=== PATIENT | female | born 1985 ===

== ENCOUNTER 2016-10-07 10:32 | Emergency (ER) | payer OTHER ==
[2016-10-07 10:37] VITALS: BP 135/83; PULSE 84; RESP 18; TEMP 98.3; O2SAT 100
--- NOTE | 2016-10-07 11:09 | ED PDOC ---
HPI: Female Pain Time Seen by Provider: 10/07/16 10:38 Chief Complaint (Nursing): Abdominal Pain Chief Complaint (Provider): Lower abdominal pain, spotting x 3 days History Per: Patient History/Exam Limitations: no limitations Onset/Duration Of Symptoms: Days Current Symptoms Are (Timing): Still Present Severity: Mild Quality Of Discomfort: Dull Associated Symptoms: denies: Fever, Chills, Nausea, Vomiting, Diarrhea, Loss Of Appetite, Back Pain, Chest Pain, Constipation, Urinary Symptoms Alleviating Factors: None Additional Complaint(s): at 6 weeks gestation, LMP 08/22/16 Past Medical History Reviewed: Historical Data, Nursing Documentation, Vital Signs Vital Signs: Last Vital Signs Temp 98.3 F 10/07/16 10:36 Pulse 84 10/07/16 10:36 Resp 18 10/07/16 10:36 BP 135/83 10/07/16 10:36 Pulse Ox 100 10/07/16 10:36 - Medical History PMH: No Chronic Diseases - Surgical History Surgical History: No Surg Hx - Family History Family History: States: Unknown Family Hx - Living Arrangements Living Arrangements: With Family - Social History Current smoker - smoking cessation education provided: No Alcohol: None Drugs: Denies - Home Medications Home Medications: Ambulatory Orders Medication Instructions Recorded No Known Home Med 01/15/16 - Allergies Allergies/Adverse Reactions: Allergies Allergy/AdvReac Type Severity Reaction Status Date / Time No Known Allergies Allergy Verified 10/07/16 10:45 Review of Systems ROS Statement: Except As Marked, All Systems Reviewed And Found Negative Gastrointestinal: Positive for: Abdominal Pain Genitourinary Female: Positive for: Vaginal Bleeding (Spotting, dark red/brown in color ) Physical Exam - Reviewed Nursing Documentation Reviewed: Yes Vital Signs Reviewed: Yes - Physical Exam Appears: Positive for: Well, Non-toxic, No Acute Distress Head Exam: Positive for: ATRAUMATIC, NORMAL INSPECTION, NORMOCEPHALIC Skin: Positive for: Normal Color, Warm, DRY Eye Exam: Positive for: Normal appearance ENT: Positive for: Normal ENT Inspection Neck: Positive for: Normal, Painless ROM Cardiovascular/Chest: Positive for: Regular Rate, Rhythm Respiratory: Positive for: Normal Breath Sounds. Negative for: Accessory Muscle Use Gastrointestinal/Abdominal: Positive for: Normal Exam, Bowel Sounds, Soft. Negative for: Tenderness Pelvic Exam: Positive for: Other (Mild left sided tenderness ) Back: Positive for: Normal Inspection Extremity: Positive for: Normal ROM Neurologic/Psych: Positive for: Alert, Oriented - Laboratory Results Result Diagrams: 10/07/16 11:23 10/07/16 11:23 - ECG O2 Sat by Pulse Oximetry: 100 Medical Decision Making Medical Decision Making: (+) IUP on US Pt has f/u already scheduled with OB. Disposition - Clinical Impression Clinical Impression: Subchorionic hematoma in first trimester - Patient ED Disposition Is Patient to be Admitted: No Counseled Patient/Family Regarding: Diagnosis, Need For Followup - Disposition Referrals: [facility] [Outside] [facility] [Outside] [facility] [Outside] Disposition: Routine/Home Disposition Time: 16:58 Condition: GOOD Additional Instructions: Please follow-up with OB. Continue vitamins. Instructions: Subchorionic Hemorrhage (ED) Print Language: DANISH
[2016-10-07 11:32] LABS: HEMATOCRIT 37.6 % (34.0-47.0); MEAN CORPUSCULAR HEMOGLOBIN 28.2 pg (27.0-31.0); MEAN CORPUSCULAR HGB CONC 33.6 g/dL (33.0-37.0); RED CELL DISTRIBUTION WIDTH 13.2 % (11.5-14.5); WHITE BLOOD COUNT 7.7 K/uL (4.8-10.8)
[2016-10-07 11:46] LABS: ALB/GLOB RATIO 1.2 (1.0-2.1); ALKALINE PHOSPHATASE 68 U/L (38-126); ALT/SGPT 38 U/L (9-52); AST/SGOT 20 U/L (14-36); BILIRUBIN,TOTAL 0.3 mg/dl (0.2-1.3); BLOOD UREA NITROGEN 9 mg/dl (7-17); CALCIUM 9.6 mg/dL (8.4-10.2); CARBON DIOXIDE 26 mmol/L (22-30); CHLORIDE 101 mmol/L (98-107); GFR AFRICAN-AMERICAN > 60; GLUCOSE,RANDOM 78 mg/dL (65-105); POTASSIUM 3.7 MMOL/L (3.6-5.0); SODIUM 139 mmol/l (132-148); TOTAL PROTEIN 7.9 G/DL (6.3-8.2)
--- NOTE | 2016-10-07 14:06 | US ---
HISTORY: 6 weeks, vaginal bleeding, left sided pain COMPARISON: None available. TECHNIQUE: FINDINGS: UTERUS: Uterus is anteverted measuring approximately 8.0 x 6.3 x 4.6 cm. . ENDOMETRIUM: Single living intrauterine gestation. . Note is made of a small subchorionic hemorrhage measuring 2.0 x 0.8 x 0.4 cm. Measurements: Gestational sac: MSD = 2.23 cm = 6 weeks 6 days Yolk sac: 0.25 cm pole: CRL = 7.0 cm = 6 weeks 4 days Heart motion: 130 BPM Average ultrasound age: 6 weeks 5 days +/-0 weeks 3 days CERVIX: Cervix closed measuring 4 cm RIGHT OVARY: Right ovary measures approximately 3.5 x 3.6 x 2.7 cm and exhibits arterial flow. Complex cyst measuring 2.5 x 1.9 x 2.1 cm noted. LEFT OVARY: Left ovary measures approximately 2.9 x 2.8 x 1.4 cm and also exhibits arterial flow. FREE FLUID: No significant free fluid noted. OTHER FINDINGS: None. IMPRESSION: Single living intrauterine gestation average ultrasound age 6 weeks 5 days +/-0 weeks 3 days. Cardiac activity documented at 1:30 BPM Small subchorionic hemorrhage. Small right ovarian cyst possibly representing corpus luteum cyst of .
== END 2016-10-07 17:14 | disposition home or self-care (01) ==
LOC: H.ER 10:32
DX: O20.9 Hemorrhage in early pregnancy, unspecified (principal); Z3A.01 Less than 8 weeks gestation of pregnancy

== ENCOUNTER 2016-12-14 18:41 | Emergency (ER) | payer SELFPAY ==
[2016-12-14 18:48] VITALS: BP 125/75; PULSE 89; RESP 16; TEMP 97.5; O2SAT 100
[2016-12-14] MEDS ORDERED: Alum-Mag Hydrox-Simethicone Susp (30 mL) PO ONE (19:07)
[2016-12-14] MEDS ORDERED: Simethicone 80 mg Chewtab PO STA (19:07)
--- NOTE | 2016-12-14 20:34 | ED PDOC ---
HPI: Abdomen Time Seen by Provider: 12/14/16 19:00 Chief Complaint (Nursing): Abdominal Pain Chief Complaint (Provider): Abdominal Pain History Per: Patient History/Exam Limitations: no limitations Onset/Duration Of Symptoms: Hrs (5x hours prior to arrival) Current Symptoms Are (Timing): Still Present Context: Food Severity: Moderate Location Of Pain/Discomfort: Epigastric Quality Of Discomfort: Stabbing Associated Symptoms: Other (bloating). denies: Nausea, Vomiting, Constipation, Urinary Symptoms Additional Complaint(s): 31 year old female 17 weeks () with no pertinent medical history presents to the ED with complaints of epigastric pain that started 5x hours prior to arrival right after she ate lunch. She describes the pain as a stabbing pain and she felt bloated a the same time. She reports that the pain went outwards from her upper abdominal area, and radiated outwards to her back bilaterally. She felt like she needed to belch, but could not. She denies having nausea, vomiting, irregular bowel movements, lower abdominal pain, vaginal bleeding, vaginal discharge, and urinary symptoms. She denies taking any medications prior to arrival. PMD: Not provided. Abnormal Vaginal Bleeding: No : 1 Para: 0 Past Medical History Reviewed: Historical Data, Nursing Documentation, Vital Signs Vital Signs: Last Vital Signs Temp 97.5 F L 12/14/16 18:44 Pulse 89 12/14/16 18:44 Resp 16 12/14/16 18:44 BP 125/75 12/14/16 18:44 Pulse Ox 100 12/14/16 20:44 - Medical History PMH: No Chronic Diseases - Surgical History Surgical History: No Surg Hx - Family History Family History: States: Unknown Family Hx - Social History Current smoker - smoking cessation education provided: No Alcohol: None Drugs: Denies - Home Medications Home Medications: Ambulatory Orders Medication Instructions Recorded Famotidine [Pepcid] 20 mg PO BID #20 tab 12/14/16 Simethicone [Mylicon Chew Tab] 80 mg PO BID PRN #12 ctb 12/14/16 - Allergies Allergies/Adverse Reactions: Allergies Allergy/AdvReac Type Severity Reaction Status Date / Time No Known Allergies Allergy Verified 10/07/16 10:45 Review of Systems ROS Statement: Except As Marked, All Systems Reviewed And Found Negative Gastrointestinal: Positive for: Abdominal Pain (epigastric, no lower abdominal pain). Negative for: Nausea, Vomiting Genitourinary Female: Negative for: Dysuria, Frequency, Hematuria, Vaginal Discharge, Vaginal Bleeding Musculoskeletal: Positive for: Back Pain (abdominal painradiates to back) Physical Exam - Reviewed Nursing Documentation Reviewed: Yes Vital Signs Reviewed: Yes - Physical Exam Appears: Positive for: Well, Non-toxic, No Acute Distress Head Exam: Positive for: ATRAUMATIC, NORMOCEPHALIC Skin: Positive for: Normal Color, Warm, Dry Cardiovascular/Chest: Positive for: Regular Rate, Rhythm Respiratory: Positive for: Normal Breath Sounds, Respiratory Distress Gastrointestinal/Abdominal: Positive for: Normal Exam, Soft. Negative for: Tenderness (gravid uterus, non-tender. Abdomen: soft, non-tender) Back: Positive for: Normal Inspection. Negative for: L CVA Tenderness, R CVA Tenderness Neurologic/Psych: Positive for: Alert, Oriented (3x) - ECG O2 Sat by Pulse Oximetry: 100 (RA) Pulse Ox Interpretation: Normal Medical Decision Making Medical Decision Makin:00 Initial impression: 31 year old female with gas. Initial plan: * upreg * udip * maalox plus 30ml * mylicon chew tab 80mg PO * pepcid 20mg PO * reevaluation 1999 Bedside sono shows active fetus with normal HR. Pt. felt much better after meds , prescribed simethicone and maalox to go home with. Return precautions given. ADvised patient to f/u w/ PMD or OB this week. Scribe Attestation: Documented by Sparkle Kelly, acting as a scribe for Kishor Khalil MD. Provider Scribe Attestation: All medical record entries made by the Scribe were at my direction and personally dictated by me. I have reviewed the chart and agree that the record accurately reflects my personal performance of the history, physical exam, medical decision making, and the department course for this patient. I have also personally directed, reviewed, and agree with the discharge instructions and disposition. Disposition - Clinical Impression Clinical Impression: Gas pain, Abdominal pain during - Disposition [facility] [Outside] Disposition: Routine/Home Disposition Time: 20:04 Condition: STABLE Prescriptions: Famotidine [Pepcid] 20 mg PO BID #20 tab Simethicone [Mylicon Chew Tab] 80 mg PO BID PRN #12 ctb PRN Reason: Gas and Bloating Instructions: Gas and Bloating (ED), Abdominal Pain in (ED) Print Language: TUVALUAN
== END 2016-12-14 20:04 | disposition home or self-care (01) ==
LOC: H.ER 18:41
DX: O26.899 Other specified pregnancy related conditions, unspecified trimester (principal); R14.0 Abdominal distension (gaseous)

== ENCOUNTER 2017-02-09 15:56 | Emergency (ER) | payer OTHER, SELFPAY ==
[2017-02-09 16:49] VITALS: BMI 33.3
[2017-02-09 18:34] LABS: RBC URINE 2 /hpf (0-3); URINE BACTERIA RARE (<OCC); URINE BILIRUBIN NEGATIVE (NEGATIVE); URINE BLOOD NEGATIVE (NEGATIVE); URINE COLOR YELLOW (YELLOW); URINE GLUCOSE (UA) NEG (Normal); URINE KETONE NEGATIVE (NEGATIVE); URINE LEUKOCYTE ESTERASE NEG Leu/uL (Negative); URINE PROTEIN NEGATIVE (NEGATIVE); URINE UROBILINOGEN 0.2-1.0 mg/dL (0.2-1.0); WBC URINE 3 /hpf (0-5)
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
--- NOTE | 2017-02-09 20:30 | OBHP ---
Datetime: 02/09/2017 20:14 IP Adm Impression: , intrauterine IP Admit Plan: Discharge home Admit Comment, IP Provider: CC: pelvic discomfort HPI: 31 yo at 24.3 weeks via US + FM, -CTX, VB, ROM Last U/S 02/04/2017 Last visit 02/04/2017 She reports less pain, feeling more comfortable. Vitals: 119/75 84 PE: General: pleasant, in no acute distress HEENT: normocephalic, PERRLA; AAOx3 Heart: no murmurs, regular rate and rhythm, S1, S2 normal. Lungs: clear to auscultation bilaterally, no wheezing Abdomen: gravid CVA: negative Lower extremities: negative for edema MONITOR: Variability: moderate Accel: 15x15 FHR: 140 bpm Assessment: 31 yo IUP at 24.3 weeks; . U/S: no samara-gestational hemorrhage observed,placenta posterior wall, cervix closed 4.4cm, AF adeq uated. Type and screen: AB+, Ab - Discharge to home PTL precaution given ED precaution given [place] PGY1 OB H addendum: Agree with above assessment and plan. Pelvic Type - PN: Adequate Extremities - PN: Normal Abdomen - PN: Normal Back - PN: Normal Breast - PN: Not Done Lungs - PN: Normal Heart - PN: Normal Thyroid - PN: Not Done Neurologic - PN: Normal HEENT - PN: Normal General - PN: Normal FHR - Baseline A Provider: 140 Contraction Comments Provider: no ctx Vital Signs Provider: Reviewed; Within Normal Limits IP Chief Complaint: Maternal discomfort; Trauma/Fall NICHD Variability Prov Fetus A: Moderate 6-25bpm NICHD Accel Fetus A IP Provider: 15X15 NICHD Decel Fetus A IP Provider: None Dilatation, Provider: 0 Effacement, Provider: 0 Station, Provider: -4 Genitourinary Exam: Normal DTRs - PN: Normal Datetime: 02/09/2017 17:00 FHR Category Provider Fetus A: Category I
[2017-02-10 00:41] VITALS: BP 105/64; PULSE 81
== END 2017-02-09 20:10 | disposition home or self-care (01) ==
LOC: H.EROB2 15:56
DX: O47.03 False labor before 37 completed weeks of gestation, third trimester (principal); Z3A.24 24 weeks gestation of pregnancy

== ENCOUNTER 2017-05-20 10:00 | Emergency (ER) | payer SELFPAY ==
[2017-05-20 11:12] VITALS: BMI 39.9
[2017-05-20 11:48] LABS: BASO % 0.7 % (0.0-2.0); EOS % 0.6 % (0.0-4.0); HEMATOCRIT 35.9 % (34.0-47.0); LYMPH # 1.2 K/uL (1.0-4.3); LYMPH % 19.4 % (20.0-40.0); MEAN CELL VOLUME 79.4 fl (81.0-99.0); MEAN CORPUSCULAR HGB CONC 32.7 g/dL (33.0-37.0); MEAN PLATELET VOLUME 9.2 fl (7.2-11.7); MONO # 0.7 K/uL (0.0-0.8); MONO % 10.3 % (0.0-10.0); NEUT # 4.4 K/uL (1.8-7.0); NRBC % 0.2 % (0.0-0.0); RED CELL DISTRIBUTION WIDTH 18.3 % (11.5-14.5); WHITE BLOOD COUNT 6.4 K/uL (4.8-10.8)
[2017-05-20 12:00] LABS: RBC URINE 2 /hpf (0-3); URINE BACTERIA OCC (<OCC); URINE BILIRUBIN NEGATIVE (NEGATIVE); URINE BLOOD NEGATIVE (NEGATIVE); URINE COLOR YELLOW (YELLOW); URINE GLUCOSE (UA) NEG (Normal); URINE KETONE NEGATIVE (NEGATIVE); URINE LEUKOCYTE ESTERASE NEG Leu/uL (Negative); URINE PROTEIN NEGATIVE (NEGATIVE); URINE UROBILINOGEN 0.2-1.0 mg/dL (0.2-1.0); WBC URINE 2 /hpf (0-5)
[2017-05-20 12:09] LABS: ALKALINE PHOSPHATASE 216 U/L (38-126); ALT/SGPT 46 U/L (9-52); AST/SGOT 25 U/L (14-36); BILIRUBIN,TOTAL 0.2 mg/dl (0.2-1.3); BLOOD UREA NITROGEN 8 mg/dl (7-17); CALCIUM 9.6 mg/dL (8.4-10.2); CARBON DIOXIDE 23 mmol/L (22-30); CHLORIDE 105 mmol/L (98-107); GFR AFRICAN-AMERICAN > 60; GLUCOSE,RANDOM 84 mg/dL (65-105); POTASSIUM 4.5 MMOL/L (3.6-5.0); SODIUM 134 mmol/l (132-148); TOTAL PROTEIN 6.9 G/DL (6.3-8.2); URIC ACID 4.3 mg/Dl (2.2-7.5)
--- NOTE | 2017-05-20 14:03 | OBDCSUM ---
Datetime: 05/20/2017 13:57 Discharged to, Provider: Home Follow up at, Provider: Clinic Disch Instr Activity: Normal activity Disch Instr Diet: Regular Discharge Instructions, Provider: Routine instructions given Discharge Time: 05/20/2017 13:57 Follow up in weeks, Provider: Next Week/next scheduled appt Disch Referrals: None Contraception discussed, Prov: No Discharge Diagnosis Prov Other: Term w/ elevated BP in office
--- NOTE | 2017-05-20 14:03 | OBHP ---
Datetime: 05/20/2017 11:20 IP Adm Impression: Term, intrauterine IP Chief Complaint Other: Elevated BP and pressure behind the eyes IP Admit Plan: Observation/Evaluation Admit Comment, IP Provider: 31 yo at 38.5 weeks GA, based on LMP , c/w first trimester US, EDC 05/29/17 is sent to [facility] from [facility] due to elevated BP of 137/94 and pressure behind her eyes. Pt reports she had bitemporal headache (8/), which resolved this morning, associated with seeing brig ht spot and pressure behind her eyes. Denies blurry vision, epigastric or RUQ abdominal pain. Pt repo rts +fm. Denies CTX, VB or LOF. Pt is GBS neg. Denies any hx elevated BP in the past. PNC: [facility], Gerda Cartagena APN PNL: AB+, AB neg, hiv neg, rpr neg, gc/c neg, gbs neg, rubella immune, PPD neg, pap: ascus, hpv+ past obhx: G1 past gynhx: denies hx STI, pap: ASCUS, HPV+, [place]: aceto-white at 5'clock position. pmhx: anemia pshx: denies social hx: denies smoking cigarettes,ETOH or recreational drug use family hx: father: DMII medications: iron and PNV allergies: NKDA Assessment: 31 yo G1 IUP@38.5 weeks GA, has elevated BP. Plan: NST CBC CMP Uric acid UA LDH Case d/w on-call OB hospitalist Dr. Twila Jacobsen, PGY-1 OB Hospitalist Addendum: Pt seen and examined by me. Agree w/ above. 31 yo G1 at 38+5 wks sent f rom office for elevated BP 137/94. Pt denies PORTER, vision changes, abdominal pain, N/V. Pt reports th at she was feeling preesure around her eyes earlier in the day. Gen'l pt appears comfortable lying i n bed. Abd: soft, NT, gravid, Ext: NT, no edema, DTR's 0-1+. BPs nl. CBC, CMP, uric acid, LDH all nl. Pt reassured and discharged home to f/u in clinic next week. Pt given PEC precautions. Pt orquidea tang Sami and Wendy Rutherford translated. (ES) Extremities - PN: Normal Abdomen - PN: Normal Back - PN: Normal Lungs - PN: Normal Heart - PN: Normal Neurologic - PN: Normal HEENT - PN: Normal General - PN: Normal FHR - Baseline A Provider: 130s Contraction Comments Provider: Quiet IP Hx Assessment: The History has been Reviewed and is Current Vital Signs Provider: Reviewed IP Chief Complaint: Maternal discomfort; Other NICHD Variability Prov Fetus A: Moderate 6-25bpm NICHD Accel Fetus A IP Provider: 15X15 FHR Category Provider Fetus A: Category I NICHD Decel Fetus A IP Provider: None Genitourinary Exam: Normal
--- NOTE | 2017-05-20 14:06 | OBHP ---
Datetime: 05/20/2017 11:20 Admit Comment, IP Provider: 31 yo at 38.5 weeks GA, based on LMP , c/w first trimester US, EDC 05/29/17 is sent to [facility] from [facility] due to elevated BP of 137/94 and pressure behind her eyes. Pt reports she had bitemporal headache (8/10), which resolved this morning, associated with seeing brig ht spot and pressure behind her eyes. Denies blurry vision, epigastric or RUQ abdominal pain. Pt repo rts +fm. Denies CTX, VB or LOF. Pt is GBS neg. Denies any hx elevated BP in the past. PNC: [facility], Gerda Cartagena APN PNL: AB+, AB neg, hiv neg, rpr neg, gc/c neg, gbs neg, rubella immune, PPD neg, pap: ascus, hpv+ past obhx: G1 past gynhx: denies hx STI, pap: ASCUS, HPV+, [place]: aceto-white at 5'clock position. pmhx: anemia pshx: denies social hx: denies smoking cigarettes,ETOH or recreational drug use family hx: father: DMII medications: iron and PNV allergies: NKDA Assessment: 31 yo G1 IUP@38.5 weeks GA, has elevated BP. Plan: NST CBC CMP Uric acid UA LDH Case d/w on-call OB hospitalist Dr. Twila Jacobsen, PGY-1 OB Hospitalist Addendum: Pt seen and examined by me. Agree w/ above. 31 yo G1 at 38+5 wks sent f rom office for elevated BP 137/94. Pt denies PORTER, vision changes, abdominal pain, N/V. Pt reports th at she was feeling preesure around her eyes earlier in the day. Gen'l pt appears comfortable lying i n bed. Abd: soft, NT, gravid, Ext: NT, no edema, DTR's 0-1+. BPs nl. CBC, CMP, uric acid, LDH all nl. NST reactive. Pt reassured and discharged home to f/u in clinic next week. Pt given PEC precau tions. Pt speaks Hebrew and Wendy Rutherford translated. (ES)
[2017-05-21 01:30] VITALS: BP 126/83; PULSE 87; TEMP 98.2; O2SAT 100
== END 2017-05-20 13:45 | disposition home or self-care (01) ==
LOC: H.L&D 10:15 → H.EROB2 10:15
DX: O13.3 Gestational [pregnancy-induced] hypertension without significant proteinuria, third trimester (principal); Z3A.38 38 weeks gestation of pregnancy

== ENCOUNTER 2017-05-23 11:53 | Inpatient (IN) | payer MEDICAID, SELFPAY ==
[2017-05-23 14:38] LABS: BASO % 0.4 % (0.0-2.0); EOS % 0.4 % (0.0-4.0); LYMPH # 1.5 K/uL (1.0-4.3); LYMPH % 20.9 % (20.0-40.0); MEAN CELL VOLUME 78.6 fl (81.0-99.0); MEAN CORPUSCULAR HEMOGLOBIN 26.5 pg (27.0-31.0); MEAN CORPUSCULAR HGB CONC 33.8 g/dL (33.0-37.0); MEAN PLATELET VOLUME 9.4 fl (7.2-11.7); MONO # 0.6 K/uL (0.0-0.8); MONO % 8.3 % (0.0-10.0); NEUT # 4.9 K/uL (1.8-7.0); NRBC % 0.2 % (0.0-0.0); RBC 4.51 Mil/uL (3.80-5.20); RED CELL DISTRIBUTION WIDTH 18.7 % (11.5-14.5)
[2017-05-23 14:51] LABS: ALBUMIN 3.5 g/dL (3.5-5.0); ALT/SGPT 41 U/L (9-52); AST/SGOT 25 U/L (14-36); BLOOD UREA NITROGEN 8 mg/dl (7-17); CALCIUM 9.6 mg/dL (8.4-10.2); GFR AFRICAN-AMERICAN > 60; GFR NON-AFRICAN AMERICAN > 60; URIC ACID 4.8 mg/Dl (2.2-7.5)
[2017-05-23 14:54] LABS: URINE BACTERIA MANY (<OCC); URINE BILIRUBIN NEGATIVE (NEGATIVE); URINE BLOOD NEGATIVE (NEGATIVE); URINE CLARITY CLOUDY (Clear); URINE COLOR YELLOW (YELLOW); URINE GLUCOSE (UA) 50 mg/dL (Normal); URINE LEUKOCYTE ESTERASE TRACE Leu/uL (Negative); URINE NITRATE NEGATIVE (NEGATIVE); URINE PROTEIN NEGATIVE (NEGATIVE); URINE UROBILINOGEN 0.2-1.0 mg/dL (0.2-1.0)
[2017-05-23 14:55] LABS: SQUAMOUS EPITHIAL 6 /hpf (0-5)
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
[2017-05-25] MEDS: Lactated Ringer's 1,000 ML IV SCH ×4 (01:35→14:00)
[2017-05-25] MEDS ORDERED: Fentanyl/Bupivacaine HCl 250 ML EPI ONE (02:15)
[2017-05-25] MEDS ORDERED: Oxytocin 30 UNITS in Sodium Chloride 0.9% 500 ML IV ONE (04:30)
[2017-05-25] MEDS ORDERED: ceFAZolin IV 2 gm in Dextrose 2 GM/50 ML BAG IVPB ONE (14:21)
[2017-05-25] MEDS ORDERED: Lidocaine 2% PF (10 ml) Amp ONE (14:45)
--- NOTE | 2017-05-25 14:51 | OBPN ---
Datetime: 05/25/2017 14:31 IP Progress Impression: Arrest of dilatation/descent IP Informed Consent Obtain: Section Delivery; Risks, Benefits and Alternatives Discussed IP Procedures: Sterile Vag Exam IP Progress Plan: Deliver- Section Contraction Comments Provider: irregular FHR - Baseline A Provider: 130 IP Progress Note Comment: 31 yo G1 at 38+3 wks for induction of labor w/ arrest of descent Pt has been complete/ 0 since about 9 am. Discussed dx and risks, benfits and alternatives of section Pt speaks Upper Sorbian. Inna Bran R.N. translated. Will proceed w/ cesaren section. Vital Signs Provider: Reviewed; Within Normal Limits NICHD Accel Fetus A IP Provider: 10X10 FHR Category Provider Fetus A: Category I NICHD Variability Prov Fetus A: Moderate 6-25bpm Dilatation, Provider: 10 Effacement, Provider: 100 Station, Provider: 0 Datetime: 05/23/2017 12:35 Presentation-Admit: Vertex NICHD Decel Fetus A IP Provider: None
[2017-05-25] MEDS ORDERED: Propofol 10 mg/ml Inj (20 ML) ONE (15:10)
[2017-05-25] MEDS ORDERED: Midazolam 2 MG/2 ML VIAL ONE (15:11)
[2017-05-25] MEDS ORDERED: Morphine 5 mg/10 ml preservative-free Inj(Duramorph) ONE (15:24)
[2017-05-25] MEDS ORDERED: Oxycodone/Acetaminophen 5/325 mg Tab PO PRN (15:53)
[2017-05-25] MEDS ORDERED: DiphenhydrAMINE 50 mg/ml Inj IVP PRN (16:08)
--- NOTE | 2017-05-25 16:09 | OBDS ---
DELIVERY PERSONNEL Delivery Doctor: Sajan Mattson MD Scrub Nurse: Selma Robles OBT Costume Shop Coordinator: Chani Lugo RN Anesthesiologist: James Meyer MD MATERNAL INFORMATION Delivery Anesthesia: Epidural Medications in Delivery: Pitocin Estimated Blood Loss (ml): 800 Placenta Cultured: No Maternal Complications: None RN Comments: Live boy @1513 via primary section.. Infant care given by peds. [id number] not done and documented. Pt tolerated procedure well. Pt to l_d for recovery. Provider Comments: Pre-op dx: 31 yo G1 at 38+3 wks w/ GHTN w/ arrest of descent Post-op dx: OP position Procedure: Primary low transverse section Surgeon: Twila Manager Eligibility: Dr. Orellana Anesthesiologist: Dr. Meyer Ansesthesia: Epidural Findings: Viable male delivered in OP position, through clear fluid at 15:13. Apgars 9 and 9. Wt 3685 gms, 8#1. Nl appearing uterus, tubes and ovaries. EBL: 800mL Complications: None LABOR SUMMARY EDC: 05/29/2017 00:00 No. Babies in Womb: 1 Attempted: No Labor Anesthesia: Epidural LABOR INFORMATION Reason for Induction: Gest. HTN/PreEclampsia/Eclampsia Onset of Labor: 05/25/2017 05:00 (Annotations: Data stored by [facility] on behalf of user) Complete Dilatation: 05/25/2017 08:55 Cervical Ripening Agents: Cervidil; Cytotec @ Oxytocin: Induction Group B Beta Strep: Negative Antibiotics # of Doses: 0 Steroids Given: None Reason Steroids Not Administered: Not Applicable MEMBRANES Membranes Rupture Method: Spontaneous Rupture of Membranes: 05/25/2017 00:50 Length of Rupture (hrs): 14.38 Amniotic Fluid Color: Clear Amniotic Fluid Amount: Moderate STAGES OF LABOR Stage 1 hrs: 3 Stage 1 min: 55 Stage 2 hrs: 6 Stage 2 min: 18 Stage 3 hrs: 0 Stage 3 min: -58 Total Time in Labor hrs: 9 Total Time in Labor min: 15 VAGINAL DELIVERY Episiotomy: None Laceration Extension: N/A Laceration Type: None Laceration Repair: Not Applicable CSECTION DELIVERY Primary Indication: Failure of Descent Secondary Indication: Failure of Descent CSection Urgency: Non Elective CSection Incidence: Primary Labor: Labor Elective: Nonelective CSection Incision: Lower Uterine Transverse BABY A INFORMATION Delivery Date/Time: 05/25/2017 15:13 Method of Delivery: Born in Route : No : N/A Forceps: N/A Vacuum Extraction: N/A Shoulder Dystocia : No SHOULDER DYSTOCIA BABY A Infant Delivery Date/Time: 05/25/2017 15:13 PRESENTATION/POSITION BABY A Presentation: Cephalic Cephalic Presentation: Vertex Breech Presentation: N/A PLACENTA INFORMATION BABY A Placenta Delivery Time : 05/25/2017 14:15 Placenta Method of Delivery: Expressed Placenta Status: Delivered SCORES BABY A Heart Rate 1 min: >100 bpm Resp Effort 1 min: Good Cry Reflex Irritability 1 min: Cough or Sneeze or Pulls Away Muscle Tone 1 min: Active Motion Color 1 min: Body [place], Extremities Blue Resuscitation Effort 1 min: N/A SCORE 1 MIN: 9 Heart Rate 5 min: >100 bpm Resp Effort 5 min: Good Cry Reflex Irritability 5 min: Cough or Sneeze or Pulls Away Muscle Tone 5 min: Active Motion Color 5 min: Body [place], Extremities Blue Resuscitation Effort 5 min: N/A SCORE 5 MIN: 9 Resuscitation Effort 10 min: N/A INFORMATION BABY A Gestational Age at Delivery: 38+3 Gestational Status: Term Outcome : Liveborn Infant Condition : Stable Sex: Male IDENTIFICATION/MEDS BABY A ID Band Number: [id number] ID Band Location: Left Leg; Left Arm WEIGHT/LENGTH BABY A Infant Birthweight (gms): 3650 Infant Weight (lb): 8 Infant Weight (oz): 1 CORD INFORMATION BABY A No. Cord Vessels: 3 Nuchal Cord : N/A Cord Blood Taken: Yes Infant Suction: Mouth ASSESSMENT BABY A Infant Complications: None Physical Findings at Delivery: Within Normal Limits Respirations: Appears Normal Homicide Squad Captain/ALS Called : No Infant Care By: Terri Price rn Transferred To: [facility]
--- NOTE | 2017-05-25 19:36 | OP ---
PROCEDURE DATE: 05/25/2017 PREOPERATIVE DIAGNOSIS: This is a 31-year-old G1 at 38 weeks and 3 days with gestational hypertension with arrest of descent.. POSTOPERATIVE DIAGNOSES: This is a 31-year-old G1 at 38 weeks and 3 days with gestational hypertension with arrest of descent. Occiput posterior position. PROCEDURE: A primary low-transverse section. SURGEON: Rachel Mattson MD GUYLINE OPERATOR: Rolan Orellana MD. Dr. Orellana was a surgical assistant certified participated in the surgery for the entire duration of the case. He helped create exposure, he also helped maintain hemostasis, operated throughout the case on the side of the patient that was across from him and assisted in delivery of the infant by guiding the head through the incision as well as by applying fundal pressure. This case could not have been completed without his assistance. ANESTHESIOLOGIST: Dr. Wesley Meyer. ANESTHESIA: Epidural. FINDINGS: A viable male infant delivered in OP position through clear fluid at 1513. Apgars were 9 and 9 at one and five minutes respectively. Weight was 3685 grams or 8 pounds 1 ounce. Normal-appearing uterus, tubes and ovaries. ESTIMATED BLOOD LOSS: 800 mL. COMPLICATIONS: None. DESCRIPTION OF PROCEDURE: The patient was taken to the operating room where epidural anesthesia was bolused. She was then prepped and draped in the normal sterile fashion in the dorsal supine position with a leftward tilt. A time-out was done. The epidural was tested and found to be adequate. A Pfannenstiel skin incision was then made with the scalpel and carried through to the underlying layer of fascia with the Bovie. The fascia was incised in the midline. The incision was extended laterally with the Bovie over a Verna. The inferior aspect of the fascial incision was then grasped with the Amanda clamps, elevated and the underlying rectus muscles were dissected off bluntly and with the Bovie. Attention was then turned to the superior aspect of this incision, which in a similar fashion was grasped, tented up with the Amanda clamps and the rectus muscles were dissected off bluntly and with the Bovie. The rectus muscles were then in the midline. The peritoneum was identified, tented up and entered sharply with the Metzenbaum scissors. The peritoneal incision was then extended superiorly and inferiorly with good visualization of the bladder. The bladder blade was then inserted. The vesicouterine peritoneum was identified, grasped with the pickups and entered sharply with the Metzenbaum scissors. This incision was then extended laterally and the bladder flap was created digitally. The bladder blade was then reinserted and lower uterine segment was incised in a transverse fashion with the scalpel. The uterine incision was then extended laterally digitally. The bladder blade was removed. The 's head delivered atraumatically. The nose and mouth were suctioned with a bulb suction. The cord was clamped and cut. The was handed off to the awaiting seed core operator. Cord blood was then collected. The placenta was then delivered as the uterus was massaged. The uterus was then exteriorized and cleared of all clots and debris with a dry sponge curettage. The uterine incision was then repaired with 0 Vicryl in a running locked fashion. A second layer of the same suture was used to obtain hemostasis and to reinforce the incision. The abdomen was then well irrigated. The uterus was then returned to the abdomen. The gutters were cleared of all clots. The peritoneum was closed with 0 chromic. A single stitch of 0 chromic was placed to re-approximate the rectus muscles. The fascia was re-approximated with 0 Vicryl in a running fashion. The subcutaneous fat was well irrigated. 2-0 plain gut was used in a running fashion to close the space of the fat. The skin was then closed with 4-0 Monocryl in a subcuticular fashion. The patient tolerated the procedure well. Sponge, lap and needle counts were correct. The patient received 2 g of Ancef prior to the procedure. The patient was taken to the recovery room in stable condition. Rachel Mattson MD MTDLauri
[2017-05-26] MEDS: Lactated Ringer's 1,000 ML IV SCH (01:42)
[2017-05-26 06:13] LABS: HEMOGLOBIN 11.3 g/dL (12.0-16.0); MEAN CELL VOLUME 78.3 fl (81.0-99.0); MEAN CORPUSCULAR HEMOGLOBIN 26.7 pg (27.0-31.0); MEAN CORPUSCULAR HGB CONC 34.1 g/dL (33.0-37.0); RBC 4.24 Mil/uL (3.80-5.20); RED CELL DISTRIBUTION WIDTH 18.9 % (11.5-14.5)
[2017-05-26 06:35] LABS: ALB/GLOB RATIO 0.8 (1.0-2.1); ALBUMIN 2.7 g/dL (3.5-5.0); ALT/SGPT 99 U/L (9-52); AST/SGOT 78 U/L (14-36); BLOOD UREA NITROGEN 11 mg/dl (7-17); GFR AFRICAN-AMERICAN > 60; GFR NON-AFRICAN AMERICAN > 60
[2017-05-26] MEDS: Simethicone 80 mg Chewtab PO PRN ×2 (08:44→21:15)
[2017-05-26] MEDS: Oxycodone/Acetaminophen 5/325 mg Tab PO PRN ×3 (10:07→20:45)
--- NOTE | 2017-05-27 07:08 | OBPPN ---
Datetime: 05/26/2017 08:00 PP Pain Prov: Within normal limits PP Nausea Prov: Denies PP Flatus Prov: Yes PP BM Prov: No PP Breasts Prov: Not Done PP Heart Prov: Normal PP Lungs Prov: Normal PP Abdomen/Uterus Prov: Normal PP Lochia Prov: Normal PP Vulva/Perineum Prov: Not Done PP CVA Tenderness Prov: Normal PP Extremities Prov: Normal PP C/S Incision Prov: Normal PP Progress Prov: Normal PP Impression Prov: Normal progression PP Plan Prov: Continue present management PP Progress Note Prov: POD 1 S: 31 yo s/p on 05/25/17. Pt. is seen and examined at bedside this AM. No overni ght events. Pt reports mild abdominal pain, but well controlled with pain meds. D/c le, dressing t o be removed in the afternoon. No nausea, advised to advance diet as tolerated. Breast feeding withou t difficulty. Lochia is similar to menses volume. No bowel movement, but passing gas per rectum. Niko es fever/chills, diarrhea, nausea/vomiting, chest pain, dyspnea, and dizziness. O: VS: stable GEN: AAOX3 Cardio: S1S2, no murmurs Lungs: clear breath sounds b/l; no wheezing Abdomen: BS+, tenderness to palpation. Incision scar to be examined when bandage is removed at 15: 00. Uterus is firm and at the level of the umbilicus. EXT: calves nontender NEURO/PSYCH: AAOx3, no grossly focal deficits, preserved affect and mood. Assessment/Plan: 31 yo s/p on 05/25/17. Pt remains afebrile, tolerating pain wit h medication, doing well on POD#1. OOB with caution SCDs for DVT prophylaxis, encouraged ambulating Percocet 5/325mg, and Motrin 600mg for pain. Colace 100mg PO BID/Senokot 17.2 mg for constipation Encourage and ambulating f/u CBC post op, pending Tdap before d/c Anticipated d/c to home, 05/28/2017. --- Lester Cardona MD PGY-1 Late entry for May 26 - OB Hospitalist note. Pt seen on rounds 4pm. Agree with note - currently undecided about circ [facility] Vital Signs Provider PP: Reviewed; Within Normal Limits Vital Signs Provider Details PP: incision will be checked when bandage is removed at 15:00
[2017-05-27 07:49] LABS: MEAN CELL VOLUME 77.7 fl (81.0-99.0); MEAN CORPUSCULAR HEMOGLOBIN 26.6 pg (27.0-31.0); MEAN CORPUSCULAR HGB CONC 34.2 g/dL (33.0-37.0); RBC 3.5 Mil/uL (3.80-5.20); RED CELL DISTRIBUTION WIDTH 18.9 % (11.5-14.5)
[2017-05-27 07:51] LABS: HEMOGLOBIN 9.3 g/dL (12.0-16.0)
[2017-05-27] MEDS: Oxycodone/Acetaminophen 5/325 mg Tab PO PRN ×3 (07:51→21:35)
[2017-05-27] MEDS: Simethicone 80 mg Chewtab PO PRN ×2 (07:51→21:35)
--- NOTE | 2017-05-27 11:56 | OBPPN ---
Datetime: 05/27/2017 07:20 PP Pain Prov: Within normal limits PP Nausea Prov: Denies PP Flatus Prov: Yes PP BM Prov: No PP Breasts Prov: Not Done PP Heart Prov: Normal PP Lungs Prov: Normal PP Abdomen/Uterus Prov: Normal PP Lochia Prov: Normal PP Vulva/Perineum Prov: Not Done PP CVA Tenderness Prov: Normal PP Extremities Prov: Normal PP C/S Incision Prov: Normal PP Progress Prov: Normal PP Impression Prov: Normal progression PP Plan Prov: Continue present management PP Progress Note Prov: POD 2 S: 31 yo s/p on 05/25/17. Pt. is seen and examined at bedside this AM. No overni ght events. Pt reports mild abdominal pain, but well controlled with pain meds. D/c le, dressing r emoved, incision site healing well, no exudate seen, dry and intact. No nausea, advised to advance di et as tolerated. Breast feeding without difficulty. Lochia is similar to menses volume. No bowel move ment, but passing gas per rectum. Denies fever/chills, diarrhea, nausea/vomiting, chest pain, dyspnea , and dizziness. O: VS: stable GEN: AAOX3 Cardio: S1S2, no murmurs Lungs: clear breath sounds b/l; no wheezing Abdomen: BS+, tenderness to palpation. Incision scar noted, well healing with no exudate seen, dry and intact. Uterus is firm and at the level of the umbilicus. EXT: calves nontender NEURO/PSYCH: AAOx3, no grossly focal deficits, preserved affect and mood. Assessment/Plan: 31 yo s/p on 05/25/17. Pt remains afebrile, tolerating pain wit h medication, doing well on POD#2. OOB with caution SCDs for DVT prophylaxis, encouraged ambulating Percocet 5/325mg, and Motrin 600mg for pain. Colace 100mg PO BID/Senokot 17.2 mg for constipation Encourage and ambulating f/u CBC post op, stable 11.3/33.2 Tdap before d/c Anticipated d/c to home, 05/28/2017. --- Lester Cardona MD PGY-1 The patient was seen with the resident and I agree with the notes IP PP Procedures: None Vital Signs Provider PP: Reviewed Vital Signs Provider Details PP: elevated bp. consult family medicine team for further evaluation
--- NOTE | 2017-05-27 15:31 | CP.PCM.CON ---
History of Present Illness - History of Present Illness History of Present Illness: Family Medicine Consult Note - Dr. Vanegas 31 year old s/p (05/25/17) seen and evaluated at bedside regarding elevated BP. Patient hemodynamically stable and NAD. Family present at bedside. Patient states last week Thursday, she experienced pain and pressure behind her eyes and felt tightness in her chest. Patient states she then presented to clinic for scheduled care visit and was found to have BP 141/99, and was told to go to [facility] for elevated BP and pre-ecclampsia workup. Per chart, workup for pre-ecclampsia was found to be unremarkable. At present, patient denies any headache, pain, or pressure behind her eyes; also denies any chest tightness or palpitations. Denies N/V/F/D/C/SOB. +abdominal discomfort. PMHx: sickle cell trait PSH: none FH: HTN (mother and father) SH: denies ETOH/tobacco use/illicit drug use Meds: vitamins All: NKDA Review of Systems - Review of Systems All systems: reviewed and no additional remarkable complaints except (as per HPI ) - Constitutional Constitutional: absent: Chills, Fever, Headache, Malaise, Weakness - EENT Eyes: absent: Blind Spots, Blurred Vision, Pain Ears: absent: Tinnitus, Dizziness Nose/Mouth/Throat: absent: Nose Pain, Facial Pain, Neck Pain, Neck Mass - Breasts Breasts: Swelling. absent: Pain - Cardiovascular Cardiovascular: absent: Chest Pain, Chest Pain at Rest, Dyspnea, Irregular Heart Rhythm, Palpitations, Radiating Pain - Respiratory Respiratory: absent: Dyspnea, Hemoptysis, Wheezing - Gastrointestinal Gastrointestinal: Abdominal Pain. absent: Cramping, Diarrhea, Nausea, Vomiting - Genitourinary Genitourinary: absent: Difficulty Urinating, Flank Pain - Reproductive: Female Reproductive:Female: absent: Pelvic Pain - Musculoskeletal Musculoskeletal: absent: Numbness, Tingling - Integumentary Integumentary: absent: Unusual Bruising, Wounds - Neurological Neurological: absent: Dizziness, Numbness, Syncope - Psychiatric Psychiatric: absent: Confusion, Depression - Endocrine Endocrine: absent: Palpitations, Polydipsia, Polyphagia Past Patient History - Infectious Disease Hx of Infectious Diseases: None - Past Social History Smoking Status: Never Smoked - PSYCHIATRIC Hx Substance Use: No - SURGICAL HISTORY Hx Surgeries: No - ANESTHESIA Hx Anesthesia: No Meds Allergies/Adverse Reactions: Allergies Allergy/AdvReac Type Severity Reaction Status Date / Time No Known Allergies Allergy Verified 10/07/16 10:45 - Medications Medications: Current Medications Acetaminophen (Tylenol 325mg Tab) 650 mg PO Q6 PRN PRN Reason: Headache Diphenhydramine HCl (Benadryl) 50 mg IVP Q6 PRN PRN Reason: Itching / Pruritus Docusate Sodium (Colace) 100 mg PO BID [facility] Last Admin: 05/27/17 10:11 Dose: Not Given Lactated Ringer's (Lactated Ringer's) 1,000 mls @ 125 mls/hr IV .Q8H [facility] Last Admin: 05/26/17 01:42 Dose: 125 mls/hr Ibuprofen (Motrin Tab) 600 mg PO Q4H PRN PRN Reason: Pain, Mild (1-3) Last Admin: 05/27/17 13:01 Dose: 600 mg Ketorolac Tromethamine (Toradol) 30 mg IVP Q6 PRN PRN Reason: For PCEA Breakthrough Pain Ondansetron HCl (Zofran Inj) 4 mg IVP Q6 PRN PRN Reason: Nausea/Vomiting Oxycodone/Acetaminophen (Percocet 5/325 Mg Tab) 1 tab PO Q4 PRN PRN Reason: Pain, moderate (4-7) Stop: 05/28/17 15:54 Last Admin: 05/27/17 07:51 Dose: 1 tab Oxycodone/Acetaminophen (Percocet 5/325 Mg Tab) 2 tab PO Q4 PRN PRN Reason: Pain, severe (8-10) Stop: 05/28/17 15:54 Sennosides (Senokot Tab) 17.2 mg PO [facility] Last Admin: 05/26/17 21:15 Dose: 17.2 mg Simethicone (Mylicon Chew Tab) 80 mg PO TID PRN PRN Reason: Flatulence Last Admin: 05/27/17 07:51 Dose: 80 mg Physical Exam - Constitutional Appears: Well, Non-toxic, No Acute Distress - Head Exam Head Exam: ATRAUMATIC, NORMAL INSPECTION, NORMOCEPHALIC - Eye Exam Eye Exam: EOMI, Normal appearance Pupil Exam: NORMAL ACCOMODATION, PERRL - ENT Exam ENT Exam: Mucous Membranes Moist, Normal Exam, Normal External Ear Exam - Neck Exam Neck exam: Positive for: Full Rom, Normal Inspection. Negative for: Tenderness - Respiratory Exam Respiratory Exam: Clear to Auscultation Bilateral, NORMAL BREATHING PATTERN. absent: Rales, Rhonchi, Wheezes - Cardiovascular Exam Cardiovascular Exam: Tachycardia, +S1, +S2 - GI/Abdominal Exam GI & Abdominal Exam: Normal Bowel Sounds, Soft, Tenderness - Rectal Exam Rectal Exam: Deferred - Extremities Exam Extremities exam: Positive for: full ROM, normal inspection - Neurological Exam Neurological exam: Alert, Oriented x3 - Psychiatric Exam Psychiatric exam: Normal Affect, Normal Mood - Skin Skin Exam: Intact, Normal Color, Warm Results - Labs Result Diagrams: 05/27/17 06:56 05/26/17 05:35 Labs: Laboratory Results - last 24 hr 05/27/17 06:56 WBC 16.0 H RBC 3.50 L Hgb 9.3 L D Hct 27.2 L MCV 77.7 L MCH 26.6 L MCHC 34.2 RDW 18.9 H Plt Count 216 Assessment & Plan (1) Hypertension Status: Acute - Assessment and Plan (Free Text) Assessment: 31 year old s/p (05/25/17) with hypertension and tachycardia, HR 145/97 on admission and remains high 120s-mid 140s throughout hospital course; HR 109 at present. (1) Hypertension Patient found to have 1 episode of elevated BP throughout course (137/ 94 on 05/20/17) BP 141/94 today at noon however at present remains WNL -Continue to monitor BP No protein in urine per UA Ibuprofen or LR as possible source of HTN -Consulted patient on Ibuprofen use in increasing BP vs. use for incisional pain -Will continue Ibuprofen for now given risk/benefit -Will d/c fluid orders as patient is tolerating PO diet Will consider starting Labetalol 100mg PO BID pending urine creatinine -Educated patient on possibility of starting Labetalol use in Continue to monitor BP (2) Tachycardia HR 109 today at noon, WNL currently EKG reviewed - sinus tachycardia WBC increased at 16.0, likely reactive Continue to monitor
[2017-05-28] MEDS: Oxycodone/Acetaminophen 5/325 mg Tab PO PRN (02:13)
--- NOTE | 2017-05-28 07:26 | CP.PCM.PN ---
Subjective - Date & Time of Evaluation Date of Evaluation: 05/28/17 Time of Evaluation: 08:13 - Subjective Subjective: Family Medicine Progress Note 31 year old s/p (05/25/17) seen and evaluated at bedside regarding elevated BP. Patient hemodynamically stable and NAD. Mother present at bedside. Denies any acute events overnight. Patient reports continued abdominal discomfort 2/2 ; denies chest pain, palpitations, headache, or pain behind her eyes. Per nursing, was given Motrin yesterday AM and overnight as well. Denies N/V/F/D/C/SOB. Objective - Medications Medications: Current Medications Acetaminophen (Tylenol 325mg Tab) 650 mg PO Q6 PRN PRN Reason: Headache Diphenhydramine HCl (Benadryl) 50 mg IVP Q6 PRN PRN Reason: Itching / Pruritus Docusate Sodium (Colace) [address] [facility] Last Admin: 05/27/17 17:33 Dose: 100 mg Ibuprofen (Motrin Tab) 600 mg PO Q4H PRN PRN Reason: Pain, Mild (1-3) Last Admin: 05/28/17 06:36 Dose: 600 mg Ketorolac Tromethamine (Toradol) 30 mg IVP Q6 PRN PRN Reason: For PCEA Breakthrough Pain Ondansetron HCl (Zofran Inj) 4 mg IVP Q6 PRN PRN Reason: Nausea/Vomiting Oxycodone/Acetaminophen (Percocet 5/325 Mg Tab) 1 tab PO Q4 PRN PRN Reason: Pain, moderate (4-7) Stop: 05/28/17 15:54 Last Admin: 05/28/17 02:13 Dose: 1 tab Oxycodone/Acetaminophen (Percocet 5/325 Mg Tab) 2 tab PO Q4 PRN PRN Reason: Pain, severe (8-10) Stop: 05/28/17 15:54 Sennosides (Senokot Tab) 17.[address] [facility] Last Admin: 05/27/17 21:34 Dose: 17.2 mg Simethicone (Mylicon Chew Tab) 80 mg PO TID PRN PRN Reason: Flatulence Last Admin: 05/27/17 21:35 Dose: 80 mg - Labs Labs: 05/27/17 06:56 05/26/17 05:35 - Constitutional Appears: Well, Non-toxic, No Acute Distress - Head Exam Head Exam: ATRAUMATIC, NORMAL INSPECTION, NORMOCEPHALIC - Eye Exam Eye Exam: EOMI, Normal appearance Pupil Exam: NORMAL ACCOMODATION, PERRL - ENT Exam ENT Exam: Mucous Membranes Moist, Normal Exam, Normal External Ear Exam - Neck Exam Neck Exam: Full ROM, Normal Inspection. absent: Tenderness - Respiratory Exam Respiratory Exam: Clear to Ausculation Bilateral, NORMAL BREATHING PATTERN. absent: Rales, Rhonchi, Wheezes - Cardiovascular Exam Cardiovascular Exam: Tachycardia, +S1, +S2 - GI/Abdominal Exam GI & Abdominal Exam: Soft, Tenderness, Normal Bowel Sounds Additional comments: Well healing scar noted - Extremities Exam Extremities Exam: Full ROM. absent: Tenderness - Neurological Exam Neurological Exam: Alert, Awake, Oriented x3 - Psychiatric Exam Psychiatric exam: Normal Affect, Normal Mood - Skin Skin Exam: Dry, Intact, Normal Color, Warm Assessment and Plan (1) Hypertension Status: Acute - Assessment and Plan (Free Text) Assessment: 31 year old 3 days s/p (05/25/17) with hypertension and tachycardia , HR 145/97 on admission and remains high 120s-mid 140s systolic and high 80s- 90s diastolic throughout hospital course (1) Hypertension Patient found to have 1 episode of elevated BP throughout course (137/ 94 on 05/20/17) HR at 149/98 this AM -Continue to monitor BP No protein in urine per UA Ibuprofen or LR as possible source of HTN -Consulted patient on Ibuprofen use in increasing BP vs. use for incisional pain -Will continue Ibuprofen for now given risk/benefit -Fluid orders d/c yesterday as patient is tolerating PO diet Start Labetalol 100mg PO BID -Urine creatinine 86.4 -Educated patient on possibility of starting Labetalol use in Continue to monitor BP (2) Tachycardia HR 108 this AM EKG reviewed - sinus tachycardia WBC increased at 16.0, likely reactive Continue to monitor
--- NOTE | 2017-05-28 10:41 | CARD ---
APPROVED REPORT EKG Measurement Heart [id number] <Conclusion> Sinus tachycardia Otherwise normal ECG
[2017-05-28 23:41] VITALS: BP 119/75; PULSE 109; RESP 20; TEMP 98; O2SAT 99
== END 2017-05-28 18:00 | disposition home or self-care (01) | DRG 766 ==
LOC: H.EROB2 11:53 → H.L&D 15:18 → H.OB/GYN 05-25 18:36
PROVIDERS: ADMIT Obstetrics & Gynecology; ATTEND Obstetrics & Gynecology
PROC: 4A1HXCZ Monitoring of Products of Conception, Cardiac Rate, External Approach (ICD-10-PCS; 2017-05-23)
PROC: 10D00Z1 Extraction of Products of Conception, Low, Open Approach (ICD-10-PCS; principal; 2017-05-25)
DX: O13.4 Gestational [pregnancy-induced] hypertension without significant proteinuria, complicating childbirth (principal); O64.0XX0 Obstructed labor due to incomplete rotation of fetal head, not applicable or unspecified; D57.3 Sickle-cell trait; O99.013 Anemia complicating pregnancy, third trimester; O13.5 Gestational [pregnancy-induced] hypertension without significant proteinuria, complicating the puerperium; O62.0 Primary inadequate contractions; O62.1 Secondary uterine inertia; K59.00 Constipation, unspecified; R00.0 Tachycardia, unspecified; Z37.0 Single live birth; Z3A.39 39 weeks gestation of pregnancy

== ENCOUNTER 2017-12-16 16:25 | Observation (INO) | payer SELFPAY ==
[2017-12-16] MEDS ORDERED: Sodium Chloride 0.9% 1,000 ML IV STA (17:25)
[2017-12-16] MEDS ORDERED: Alum-Mag Hydrox-Simethicone Susp (30 mL) PO STA (17:25)
[2017-12-16 17:40] LABS: BASO % 0.5 % (0.0-2.0); EOS % 0.7 % (0.0-4.0); HEMOGLOBIN 13.4 g/dL (12.0-16.0); LYMPH # 2.4 K/uL (1.0-4.3); MEAN CELL VOLUME 82.2 fl (81.0-99.0); MEAN CORPUSCULAR HEMOGLOBIN 27.5 pg (27.0-31.0); MEAN CORPUSCULAR HGB CONC 33.4 g/dL (33.0-37.0); MEAN PLATELET VOLUME 8.3 fl (7.2-11.7); MONO # 0.5 K/uL (0.0-0.8); NEUT # 3.9 K/uL (1.8-7.0); NEUT % 56.8 % (50.0-75.0); NRBC % 0.2 % (0.0-0.0); RBC 4.86 Mil/uL (3.80-5.20); RED CELL DISTRIBUTION WIDTH 14.2 % (11.5-14.5); WHITE BLOOD COUNT 6.8 K/uL (4.8-10.8)
--- NOTE | 2017-12-16 17:44 | ED PDOC ---
HPI: Abdomen Time Seen by Provider: 12/16/17 17:03 Chief Complaint (Nursing): Abdominal Pain Chief Complaint (Provider): Abdominal Pain History Per: Patient History/Exam Limitations: no limitations Onset/Duration Of Symptoms: Days Current Symptoms Are (Timing): Still Present Location Of Pain/Discomfort: Epigastric Additional Complaint(s): 32 y/o female with no significant PMHx presents to the ED complaining of intermittent epigastric pain for the past six months since having her baby. Patient states pain went away and returned over the last couple of weeks worsening, thus prompting today's visit. Patient reports pain radiates up to the chest associated with nausea and constipation. Patient states she took mylanta with no relief. Denies vomiting, diarrhea, fever, chills, and urinary symptoms. PMD: None Provided Past Medical History Reviewed: Historical Data, Nursing Documentation, Vital Signs Vital Signs: Last Vital Signs Temp 97.6 F 12/17/17 08:42 Pulse 65 12/17/17 08:42 Resp 20 12/17/17 08:42 BP 123/77 12/17/17 08:42 Pulse Ox 100 12/17/17 08:42 - Medical History PMH: Gastrointestinal Ulcer, HTN Denies: Depression, Diabetes - Surgical History Surgical History: No Surg Hx - Family History Family History: States: Diabetes, Hypertension - Social History Current smoker - smoking cessation education provided: No Alcohol: None - Home Medications Home Medications: Ambulatory Orders Medication Instructions Recorded No Known Home Med 12/17/17 - Allergies Allergies/Adverse Reactions: Allergies Allergy/AdvReac Type Severity Reaction Status Date / Time No Known Allergies Allergy Verified 12/16/17 16:38 Review of Systems ROS Statement: Except As Marked, All Systems Reviewed And Found Negative (as per HPI) Constitutional: Negative for: Fever, Chills Gastrointestinal: Positive for: Nausea, Abdominal Pain (epigastric), Constipation. Negative for: Vomiting, Diarrhea Genitourinary Female: Negative for: Dysuria, Frequency, Hematuria Physical Exam - Reviewed Nursing Documentation Reviewed: Yes Vital Signs Reviewed: Yes - Physical Exam Appears: Positive for: Non-toxic, In Acute Distress (mild painful) Head Exam: Positive for: ATRAUMATIC, NORMOCEPHALIC Skin: Positive for: Warm, Dry Eye Exam: Positive for: EOMI, PERRL ENT: Negative for: Pharyngeal Erythema, Tonsillar Exudate Neck: Positive for: Painless ROM, Supple Cardiovascular/Chest: Positive for: Regular Rate, Rhythm. Negative for: Murmur Respiratory: Positive for: Normal Breath Sounds. Negative for: Wheezing Gastrointestinal/Abdominal: Positive for: Normal Exam, Soft, Tenderness ( Epigastric and bilateral upper quadrant tenderness to palpation). Negative for : Mass, Distended, Guarding, Rebound Back: Positive for: Normal Inspection. Negative for: L CVA Tenderness, R CVA Tenderness Extremity: Positive for: Normal ROM. Negative for: Deformity Lymphatic: Negative for: Adenopathy Neurologic/Psych: Positive for: Alert. Negative for: Motor/Sensory Deficits - Laboratory Results Result Diagrams: 12/17/17 06:20 12/17/17 06:20 Urine dip results: Positive for: Bilirubin. Negative for: Leukocyte Esterase, Blood, Nitrate, Ketones, Glucose, Protein - ECG O2 Sat by Pulse Oximetry: 100 (RA) Pulse Ox Interpretation: Normal Medical Decision Making Medical Decision Making: Time: 1737 Impression: Abdominal Pain Differentials include but not limited to gastritis, reflux, pancreatitis, hepatitis, gall bladder disease and entoritis. Plan: -- CMP -- Lipase -- ED Urine -- ED Urine Dipstick -- CBC with differentials -- Lidocaine 2% Viscous 10 ml PO -- Maalox Plus 30 ml PO -- Sodium Chloride IV 1000 mls/hr -- Pepcid 20 mg PO -- Zofran INJ 4 mg IVP -- IV Insertion -- Abdomen Complete US Time: 1828 ABDOMEN US RESULTS FINDINGS: LIVER: Measures 18.0 cm. Normal echogenicity of the liver parenchyma. No mass. No intrahepatic bile duct dilatation. GALLBLADDER: There are multiple gallstones, no wall thickening or pericholecystic fluid. The sonographic Morgan's sign is negative. COMMON BILE DUCT: Measures 5.0 mm. No stones. No dilatation. PANCREAS: Normal in size and echotexture. No mass. No ductal dilatation. RIGHT KIDNEY: Measures 11.6cm. Normal echogenicity. No calculus, mass, or hydronephrosis. LEFT KIDNEY: Measures 11.6cm. Normal echogenicity. No calculus, mass, or hydronephrosis. SPLEEN: Normal in size and contour. No mass. AORTA: No aneurysmal dilatation. IVC: Unremarkable. OTHER FINDINGS: None. IMPRESSION: Cholelithiasis. No sonographic evidence for acute cholecystitis. 1830 LFTs moderately deranged. DW pt findings. Pt to be hospitalized for further evaluation. DW Dr Wesley FP resident. Scribe Attestation: Documented by Angela Bourgeois, acting as a scribe for Dr. Della Anthony. Provider Scribe Attestation: All medical record entries made by the Scribe were at my direction and personally dictated by me. I have reviewed the chart and agree that the record accurately reflects my personal performance of the history, physical exam, medical decision making, and the department course for this patient. I have also personally directed, reviewed, and agree with the discharge instructions and disposition. Disposition - Clinical Impression Clinical Impression: Cholelithiasis, Cholangitis - Disposition Disposition Time: 18:30 Condition: FAIR - Pt Status Changed To: Hospital Disposition Of: Inpatient - Admit Certification Admit to Inpatient:: After my assessment, the patient will require hospitalization for at least two midnights. This is because of the severity of symptoms shown, intensity of services needed, and/or the medical risk in this patient being treated as an outpatient. - POA Present On Arrival: None
[2017-12-16 17:50] LABS: ALB/GLOB RATIO 1.2 (1.0-2.1); ALBUMIN 4.6 g/dL (3.5-5.0); ALT/SGPT 956 U/L (9-52); BLOOD UREA NITROGEN 8 mg/dl (7-17); CALCIUM 10.1 mg/dL (8.4-10.2); GFR NON-AFRICAN AMERICAN > 60; LIPASE 334 U/L (23-300)
[2017-12-16 18:04] LABS: AST/SGOT 728 U/L (14-36)
[2017-12-16 18:24] LABS: PARTIAL THROMBOPLASTIN TIME 33.4 Seconds (25.6-37.1)
--- NOTE | 2017-12-16 18:30 | US ---
Date of service: 12/16/2017 HISTORY: epigastric pain COMPARISON: None. TECHNIQUE: Grayscale imaging was performed. FINDINGS: LIVER: Measures 18.0 cm. Normal echogenicity of the liver parenchyma. No mass. No intrahepatic bile duct dilatation. GALLBLADDER: There are multiple gallstones, no wall thickening or pericholecystic fluid. The sonographic Morgan's sign is negative. COMMON BILE DUCT: Measures 5.0 mm. No stones. No dilatation. PANCREAS: Normal in size and echotexture. No mass. No ductal dilatation. RIGHT KIDNEY: Measures 11.6cm. Normal echogenicity. No calculus, mass, or hydronephrosis. LEFT KIDNEY: Measures 11.6cm. Normal echogenicity. No calculus, mass, or hydronephrosis. SPLEEN: Normal in size and contour. No mass. AORTA: No aneurysmal dilatation. IVC: Unremarkable. OTHER FINDINGS: None. IMPRESSION: Cholelithiasis. No sonographic evidence for acute cholecystitis.
--- NOTE | 2017-12-16 19:31 | CP.PCM.HP ---
History of Present Illness - History of Present Illness History of Present Illness: Hx taken from patient Full code PMD: NHC 32 y/o F with no significant PMhx is admitted to hosp after presenting to ED with c/o epigastric and RUQ pain for 3 days. Pain is worse at night, usually comes and goes but since last night pain is constant. Patient admits hx of similar pain almost 1 y/a during the 3rd trimester of her . Denies vomiting, diarrhea, CP, SOB, fever, headache, radiation of the pain but admits nausea. Denies taking any meds at this time, no recent traveling, no sick contacts. Denies EOTH or drugs. ED course: CBC: Unremarkable. No white count CMP: AST/ALT/ALP/Bili: 728/956/374/2.7 Lipase 334 Abd US: GB stones, no Cholecystitis, CBD 5 mm(no stones or dilation) IV fluids 1 L Pepcid IV PMHx: Gestational HTN SxHx: C/S x1 SHx: Denies x3 FHx: Unknown Allergies: NKDA Present on Admission - Present on Admission Any Indicators Present on Admission: No Review of Systems - Review of Systems All systems: reviewed and no additional remarkable complaints except (Those described on HPI) Past Patient History - Infectious Disease Hx of Infectious Diseases: None - Past Social History Smoking Status: Never Smoked Alcohol: None Drugs: Denies Home Situation {Lives}: With Family - CARDIAC Hx Cardiac Disorders: No Hx Hypertension: Yes (Gestational) - PULMONARY Hx Respiratory Disorders: No - NEUROLOGICAL Hx Neurological Disorder: No - HEENT Hx HEENT Problems: No - RENAL Hx Chronic Kidney Disease: No - ENDOCRINE/METABOLIC Hx Endocrine Disorders: No - HEMATOLOGICAL/ONCOLOGICAL Hx Blood Disorders: No - INTEGUMENTARY Hx Dermatological Problems: No - MUSCULOSKELETAL/RHEUMATOLOGICAL Hx Musculoskeletal Disorders: No - GASTROINTESTINAL Hx Gastrointestinal Disorders: Yes Hx Gall Bladder Disease: Yes - GENITOURINARY/GYNECOLOGICAL Hx Genitourinary Disorders: No - PSYCHIATRIC Hx Depression: No - SURGICAL HISTORY Hx Surgeries: No Hx Section: Yes - ANESTHESIA Hx Anesthesia: No Meds Allergies/Adverse Reactions: Allergies Allergy/AdvReac Type Severity Reaction Status Date / Time No Known Allergies Allergy Verified 12/16/17 16:38 Physical Exam - Constitutional Appears: Non-toxic, No Acute Distress - Eye Exam Eye Exam: EOMI, Normal appearance, PERRL - ENT Exam ENT Exam: Mucous Membranes Moist - Respiratory Exam Respiratory Exam: Clear to Auscultation Bilateral, NORMAL BREATHING PATTERN. absent: Rales, Rhonchi, Wheezes, Respiratory Distress - Cardiovascular Exam Cardiovascular Exam: REGULAR RHYTHM, +S1, +S2. absent: Gallop, Systolic Murmur - GI/Abdominal Exam GI & Abdominal Exam: Normal Bowel Sounds, Soft, Tenderness (Epigastric and RUQ) . absent: Distended, Firm, Guarding, Rebound, Rigid - Extremities Exam Extremities exam: Positive for: normal capillary refill, normal inspection, pedal pulses present. Negative for: pedal edema, tenderness - Neurological Exam Neurological exam: Alert, CN II-XII Intact, Oriented x3 - Psychiatric Exam Psychiatric exam: Normal Affect, Normal Mood - Skin Skin Exam: Normal Color, Warm Results - Vital Signs Recent Vital Signs: Last Vital Signs Temp 98.1 F 12/16/17 16:38 Pulse 71 12/16/17 16:38 Resp 16 12/16/17 16:38 BP 140/97 H 12/16/17 16:38 Pulse Ox 100 12/16/17 18:54 - Labs Result Diagrams: 12/16/17 17:33 12/16/17 17:33 Labs: Laboratory Results - last 24 hr 12/16/17 12/16/17 12/16/17 17:33 17:33 18:04 WBC 6.8 RBC 4.86 Hgb 13.4 Hct 40.0 MCV 82.2 MCH 27.5 MCHC 33.4 RDW 14.2 Plt Count 375 MPV 8.3 Neut % (Auto) 56.8 Lymph % (Auto) 35.0 [place] % (Auto) 7.0 Eos % (Auto) 0.7 Baso % (Auto) 0.5 Neut # (Auto) 3.9 Lymph # (Auto) 2.4 [place] # (Auto) 0.5 Eos # (Auto) 0.0 Baso # (Auto) 0.0 PT 11.0 INR 1.0 APTT 33.4 Sodium 140 Potassium 4.0 Chloride 100 Carbon Dioxide 28 Anion Gap 16 BUN 8 Creatinine 0.6 L Est GFR ( Amer) > 60 Est GFR (Non-Af Amer) > 60 Random Glucose 108 H Calcium 10.1 Total Bilirubin 2.7 H AST 728 H D ALT 956 H D Alkaline Phosphatase 374 H D Total Protein 8.6 H Albumin 4.6 Globulin 3.9 Albumin/Globulin Ratio 1.2 Lipase 334 H Assessment & Plan - Assessment and Plan (Free Text) Assessment: 32 y/o F with PMHx of gestational HTN is admitted for biliary colic and acute AST/ALT elevation Biliary Colic Acute R/O Choledocolithiasis Cholelithiasis w/o cholecystits or CBD dilation on Abd US AST/ALT/Bili: 728/956/2.7 Lipase 334 No White count, afebrile, VS stable S/p IV NS at ER General Sx consult GI Consult IV NS at 200mls Toradol 30 mg IV once NPO for now F/U Lipid panel and repeat CMP AM Transaminitis Acute AST/ALT/Bili: 728/956/2.7 R/O Biliary obstruction F/U GGT, direct Bili, Hepatitis panel GI consult DVT prophylaxis SCDs for now
[2017-12-16] MEDS: Sodium Chloride 0.9% 1,000 ML IV SCH (19:50)
[2017-12-16 20:30] LABS: BILIRUBIN,DIRECT 2.1 mg/ml (0.0-0.4)
--- NOTE | 2017-12-16 20:39 | CP.PCM.CON ---
<AlcarazSuzanne miller - Last Filed: 12/16/17 20:31> History of Present Illness - History of Present Illness History of Present Illness: General Surgery - Dr. Ordonez 32yo F w/ no PMH, presenting to ED w/ RUQ and epigastric pain x3days. Pt states the pain began 3 days ago and has been intermittent but increasing in intensity over the past 3 days. She describes it as strong/sharp pain located in the epigastric and RUQ abdomen, 8/10 at worst, now significantly improved after 1 dose Toradol IV in the ED. She had 1 prior episode of this pain about a year ago during her but it was less severe and resolved on it's own. Pt denies any Fevers, Chills, Nausea, Vomiting, SOb, Chest pain, Diarrhea , Constipation, Dysuria, Hematuria. PMH: none PSH: Csectionx1 NKDA Pt was seen in the ED. Vitals stable and WNL. Labs significant for elevated liver enzymes - Tbili 2.7, AST 738, ALT 956, Alk phos 374. An U/S of the RUQ showed gallstones with no GB wall thickening or pericholecystic fluid, CBD 5.5mm. Review of Systems - Review of Systems All systems: reviewed and no additional remarkable complaints except (as per HPI ) Past Patient History - Infectious Disease Hx of Infectious Diseases: None - Past Social History Smoking Status: Never Smoked Alcohol: None Drugs: Denies Home Situation {Lives}: With Family - CARDIAC Hx Cardiac Disorders: No Hx Hypertension: Yes (Gestational) - PULMONARY Hx Respiratory Disorders: No - NEUROLOGICAL Hx Neurological Disorder: No - HEENT Hx HEENT Problems: No - RENAL Hx Chronic Kidney Disease: No - ENDOCRINE/METABOLIC Hx Endocrine Disorders: No - HEMATOLOGICAL/ONCOLOGICAL Hx Blood Disorders: No - INTEGUMENTARY Hx Dermatological Problems: No - MUSCULOSKELETAL/RHEUMATOLOGICAL Hx Musculoskeletal Disorders: No - GASTROINTESTINAL Hx Gastrointestinal Disorders: Yes Hx Gall Bladder Disease: Yes - GENITOURINARY/GYNECOLOGICAL Hx Genitourinary Disorders: No - PSYCHIATRIC Hx Depression: No - SURGICAL HISTORY Hx Surgeries: No Hx Section: Yes - ANESTHESIA Hx Anesthesia: No Meds Allergies/Adverse Reactions: Allergies Allergy/AdvReac Type Severity Reaction Status Date / Time No Known Allergies Allergy Verified 12/16/17 16:38 - Medications Medications: Current Medications Sodium Chloride (Sodium Chloride 0.9%) 1,000 mls @ 200 mls/hr IV .Q5H REYNOLD Stop: 12/17/17 19:06 Last Admin: 12/16/17 19:50 Dose: 200 mls/hr Ondansetron HCl (Zofran Inj) 4 mg IVP Q6 PRN PRN Reason: Nausea/Vomiting Physical Exam - Constitutional Appears: Well, No Acute Distress - Head Exam Head Exam: ATRAUMATIC, NORMAL INSPECTION, NORMOCEPHALIC - Eye Exam Eye Exam: Normal appearance - Respiratory Exam Respiratory Exam: NORMAL BREATHING PATTERN. absent: Respiratory Distress - Cardiovascular Exam Cardiovascular Exam: REGULAR RHYTHM - GI/Abdominal Exam GI & Abdominal Exam: Soft, Tenderness (RUQ, + [place]). absent: Distended, Firm , Guarding, Hernia, Rebound, Rigid - Neurological Exam Neurological exam: Alert, Oriented x3 - Psychiatric Exam Psychiatric exam: Normal Affect, Normal Mood - Skin Skin Exam: Dry, Intact Results - Vital Signs Recent Vital Signs: Last Vital Signs Temp 98.1 F 12/16/17 16:38 Pulse 71 12/16/17 16:38 Resp 16 12/16/17 16:38 BP 140/97 H 12/16/17 16:38 Pulse Ox 100 12/16/17 19:41 - Labs Result Diagrams: 12/16/17 17:33 12/16/17 17:33 Labs: Laboratory Results - last 24 hr 12/16/17 12/16/17 12/16/17 17:33 17:33 18:04 WBC 6.8 RBC 4.86 Hgb 13.4 Hct 40.0 MCV 82.2 MCH 27.5 MCHC 33.4 RDW 14.2 Plt Count 375 MPV 8.3 Neut % (Auto) 56.8 Lymph % (Auto) 35.0 Yell % (Auto) 7.0 Eos % (Auto) 0.7 Baso % (Auto) 0.5 Neut # (Auto) 3.9 Lymph # (Auto) 2.4 Yell # (Auto) 0.5 Eos # (Auto) 0.0 Baso # (Auto) 0.0 PT 11.0 INR 1.0 APTT 33.4 Sodium 140 Potassium 4.0 Chloride 100 Carbon Dioxide 28 Anion Gap 16 BUN 8 Creatinine 0.6 L Est GFR ( Amer) > 60 Est GFR (Non-Af Amer) > 60 Random Glucose 108 H Calcium 10.1 Total Bilirubin 2.7 H Direct Bilirubin AST 728 H D ALT 956 H D Alkaline Phosphatase 374 H D Total Protein 8.6 H Albumin 4.6 Globulin 3.9 Albumin/Globulin Ratio 1.2 Lipase 334 H 12/16/17 20:16 WBC RBC Hgb Hct MCV MCH MCHC RDW Plt Count MPV Neut % (Auto) Lymph % (Auto) Yell % (Auto) Eos % (Auto) Baso % (Auto) Neut # (Auto) Lymph # (Auto) Yell # (Auto) Eos # (Auto) Baso # (Auto) PT INR APTT Sodium Potassium Chloride Carbon Dioxide Anion Gap BUN Creatinine Est GFR ( Amer) Est GFR (Non-Af Amer) Random Glucose Calcium Total Bilirubin Direct Bilirubin 2.1 H AST ALT Alkaline Phosphatase Total Protein Albumin Globulin Albumin/Globulin Ratio Lipase - Imaging and Cardiology US - abdomen Status: Image reviewed by me, Report reviewed by me Assessment & Plan - Assessment and Plan (Free Text) Assessment: 32 yo F w/ biliary colic and elevated LFTs -Clear liquid diet -MRCP to eval for CBD stone -Pain control prn -Repeat LFTs in AM -F/U GI Discussed w/ Dr. Mery Alcaraz PGY4 <Oleg Ordonez - Last Filed: 12/17/17 11:16> History of Present Illness - History of Present Illness History of Present Illness: Patient was seen and examined at the bedside. Agree with resident's note above. Meds - Medications Medications: Current Medications Sodium Chloride (Sodium Chloride 0.9%) 1,000 mls @ 200 mls/hr IV .Q5H REYNOLD Stop: 12/17/17 19:06 Last Admin: 12/17/17 06:33 Dose: 200 mls/hr Ondansetron HCl (Zofran Inj) 4 mg IVP Q6 PRN PRN Reason: Nausea/Vomiting Results - Vital Signs Recent Vital Signs: Last Vital Signs Temp 97.6 F 12/17/17 08:42 Pulse 65 12/17/17 08:42 Resp 20 12/17/17 08:42 BP 123/77 12/17/17 08:42 Pulse Ox 100 12/17/17 08:42 - Labs Result Diagrams: 12/17/17 06:20 12/17/17 06:20 Labs: Laboratory Results - last 24 hr 12/16/17 12/16/17 12/16/17 17:33 17:33 18:04 WBC 6.8 RBC 4.86 Hgb 13.4 Hct 40.0 MCV 82.2 MCH 27.5 MCHC 33.4 RDW 14.2 Plt Count 375 MPV 8.3 Neut % (Auto) 56.8 Lymph % (Auto) 35.0 Yell % (Auto) 7.0 Eos % (Auto) 0.7 Baso % (Auto) 0.5 Neut # (Auto) 3.9 Lymph # (Auto) 2.4 Yell # (Auto) 0.5 Eos # (Auto) 0.0 Baso # (Auto) 0.0 ESR PT 11.0 INR 1.0 APTT 33.4 Sodium 140 Potassium 4.0 Chloride 100 Carbon Dioxide 28 Anion Gap 16 BUN 8 Creatinine 0.6 L Est GFR ( Amer) > 60 Est GFR (Non-Af Amer) > 60 Random Glucose 108 H Calcium 10.1 Total Bilirubin 2.7 H Direct Bilirubin AST 728 H D ALT 956 H D Alkaline Phosphatase 374 H D Total Protein 8.6 H Albumin 4.6 Globulin 3.9 Albumin/Globulin Ratio 1.2 Triglycerides Cholesterol LDL Cholesterol Direct HDL Cholesterol Lipase 334 H 12/16/17 12/16/17 12/17/17 20:16 20:16 06:20 WBC 4.9 RBC 3.95 Hgb 11.0 L D Hct 32.7 L MCV 82.7 MCH 27.8 MCHC 33.6 RDW 14.5 Plt Count 278 MPV 8.1 Neut % (Auto) 49.3 L Lymph % (Auto) 40.3 H Yell % (Auto) 8.6 Eos % (Auto) 1.2 Baso % (Auto) 0.6 Neut # (Auto) 2.4 Lymph # (Auto) 2.0 Yell # (Auto) 0.4 Eos # (Auto) 0.1 Baso # (Auto) 0.0 ESR 41 H PT INR APTT Sodium Potassium Chloride Carbon Dioxide Anion Gap BUN Creatinine Est GFR ( Amer) Est GFR (Non-Af Amer) Random Glucose Calcium Total Bilirubin Direct Bilirubin 2.1 H AST ALT Alkaline Phosphatase Total Protein Albumin Globulin Albumin/Globulin Ratio Triglycerides Cholesterol LDL Cholesterol Direct HDL Cholesterol Lipase 12/17/17 06:20 WBC RBC Hgb Hct MCV MCH MCHC RDW Plt Count MPV Neut % (Auto) Lymph % (Auto) Yell % (Auto) Eos % (Auto) Baso % (Auto) Neut # (Auto) Lymph # (Auto) Yell # (Auto) Eos # (Auto) Baso # (Auto) ESR PT INR APTT Sodium 139 Potassium 3.9 Chloride 108 H Carbon Dioxide 23 Anion Gap 12 BUN 5 L Creatinine 0.6 L Est GFR ( Amer) > 60 Est GFR (Non-Af Amer) > 60 Random Glucose 107 H Calcium 8.1 L Total Bilirubin 2.6 H Direct Bilirubin AST 331 H D ALT 615 H D Alkaline Phosphatase 275 H D Total Protein 6.3 Albumin 3.2 L D Globulin 3.1 Albumin/Globulin Ratio 1.0 Triglycerides 92 Cholesterol 131 LDL Cholesterol Direct 58 HDL Cholesterol 39 Lipase Assessment & Plan - Assessment and Plan (Free Text) Plan: - MRCP - Pain control - Hepatitis panel - Repeat labs in am - GI follow up - Will follow
[2017-12-17] MEDS: Sodium Chloride 0.9% 1,000 ML IV SCH ×4 (01:08→17:58)
[2017-12-17 06:35] LABS: BASO % 0.6 % (0.0-2.0); EOS # 0.1 K/uL (0.0-0.7); EOS % 1.2 % (0.0-4.0); LYMPH % 40.3 % (20.0-40.0); MEAN CELL VOLUME 82.7 fl (81.0-99.0); MEAN CORPUSCULAR HEMOGLOBIN 27.8 pg (27.0-31.0); MEAN CORPUSCULAR HGB CONC 33.6 g/dL (33.0-37.0); MEAN PLATELET VOLUME 8.1 fl (7.2-11.7); MONO # 0.4 K/uL (0.0-0.8); MONO % 8.6 % (0.0-10.0); NEUT # 2.4 K/uL (1.8-7.0); NEUT % 49.3 % (50.0-75.0); RBC 3.95 Mil/uL (3.80-5.20); RED CELL DISTRIBUTION WIDTH 14.5 % (11.5-14.5); WHITE BLOOD COUNT 4.9 K/uL (4.8-10.8)
[2017-12-17 07:00] LABS: LDL CHOLESTEROL 58 mg/dL (0-129)
[2017-12-17 07:06] LABS: ALBUMIN 3.2 g/dL (3.5-5.0); ALT/SGPT 615 U/L (9-52); AST/SGOT 331 U/L (14-36); BLOOD UREA NITROGEN 5 mg/dl (7-17); CALCIUM 8.1 mg/dL (8.4-10.2); GFR NON-AFRICAN AMERICAN > 60; HDL CHOLESTEROL 39 MG/DL (30-70)
--- NOTE | 2017-12-17 07:20 | CP.PCM.PN ---
Subjective - Date & Time of Evaluation Date of Evaluation: 12/17/17 Time of Evaluation: 07:30 - Subjective Subjective: 32 y/o patent evaluated and examined at bedside. NAD. lying in bed comfortably. Improvement in abdominal pain and nausea with IV fluids and pain medication. Also reports B/L lower back pain and occasional chills. Denies any fever, dysuria, urinary Sx, vomiting, diarrhea, constipation, CP, SOB, headache, dizziness. Patient to be evaluated by GI for MRCP today. Objective - Vital Signs/Intake and Output Vital Signs (last 24 hours): Temp Pulse Resp BP Pulse Ox 98.1 F 61 20 115/76 99 12/17/17 06:30 12/17/17 06:30 12/17/17 06:30 12/17/17 06:30 12/17/17 06:30 - Medications Medications: Current Medications Sodium Chloride (Sodium Chloride 0.9%) 1,000 mls @ 200 mls/hr IV .Q5H REYNOLD Stop: 12/17/17 19:06 Last Admin: 12/17/17 06:33 Dose: 200 mls/hr Ondansetron HCl (Zofran Inj) 4 mg IVP Q6 PRN PRN Reason: Nausea/Vomiting - Labs Labs: 12/17/17 06:20 12/17/17 06:20 PT 11.0 Seconds (9.8-13.1) 12/16/17 18:04 INR 1.0 (0.9-1.2) 12/16/17 18:04 APTT 33.4 Seconds (25.6-37.1) 12/16/17 18:04 - Constitutional Appears: Well, Non-toxic, No Acute Distress - Head Exam Head Exam: ATRAUMATIC, NORMAL INSPECTION, NORMOCEPHALIC - Eye Exam Eye Exam: EOMI, Normal appearance, PERRL Pupil Exam: NORMAL ACCOMODATION, PERRL - ENT Exam ENT Exam: Mucous Membranes Moist - Respiratory Exam Respiratory Exam: Clear to Ausculation Bilateral, NORMAL BREATHING PATTERN. absent: Rales, Rhonchi, Wheezes, Respiratory Distress - Cardiovascular Exam Cardiovascular Exam: REGULAR RHYTHM, +S1, +S2. absent: Murmur - GI/Abdominal Exam GI & Abdominal Exam: Soft, Tenderness, Normal Bowel Sounds Additional comments: RUQ Tenderness - Back Exam Back Exam: CVA tenderness (L), CVA tenderness (R) - Neurological Exam Neurological Exam: Alert, Awake, Oriented x3 - Psychiatric Exam Psychiatric exam: Normal Affect, Normal Mood - Skin Skin Exam: Dry, Intact, Normal Color Assessment and Plan - Assessment and Plan (Free Text) Assessment: 32 y/o F with PMHx of gestational HTN is admitted for biliary colic and acute AST/ALT elevation Plan: Biliary Colic - Acute - No White count, afebrile, VS stable - US Abdomen: Cholelithiasis w/o cholecystits or CBD dilation - S/p IV NS at ER - Improving AST/ALT/Bili: 331/615/2.6 (Previous -728/956/2.7) - GGT 999, ALP 315 - Lipase 334 - General Sx consult on board - GI Consult - MRCP Normal caliber bile duct, GB distended with mural thickening and pericholcystic fluid as well as sludge and calculi.(See full report for detail) - IV NS 1000 ml at 200mls/hr - NPO for now - F/U hepatits panel Transaminitis - Acute - Improving - Improving AST/ALT/Bili: 331/615/2.6 (Previous -728/956/2.7) - R/O Biliary obstruction - F/U Hepatitis panel - GI consult Back pain - + CVA tenderness B/L - Asymptomatic, No Fever, dysuria, urgency or frequency - UA Ordered - F/U UA DVT prophylaxis - SCDs for now
--- NOTE | 2017-12-17 07:28 | CP.PCM.PN ---
<Magdi Meyer - Last Filed: 12/17/17 07:32> Subjective - Date & Time of Evaluation Date of Evaluation: 12/17/17 Time of Evaluation: 07:28 - Subjective Subjective: Surgery Pt seen and examined. No acute events. Denies fever, nausea, vomiting, diarrhea. c/o mild pain. Objective - Vital Signs/Intake and Output Vital Signs (last 24 hours): Temp Pulse Resp BP Pulse Ox 98.1 F 61 20 115/76 99 12/17/17 06:30 12/17/17 06:30 12/17/17 06:30 12/17/17 06:30 12/17/17 06:30 - Medications Medications: Current Medications Sodium Chloride (Sodium Chloride 0.9%) 1,000 mls @ 200 mls/hr IV .Q5H REYNOLD Stop: 12/17/17 19:06 Last Admin: 12/17/17 06:33 Dose: 200 mls/hr Ondansetron HCl (Zofran Inj) 4 mg IVP Q6 PRN PRN Reason: Nausea/Vomiting - Labs Labs: 12/17/17 06:20 12/17/17 06:20 PT 11.0 Seconds (9.8-13.1) 12/16/17 18:04 INR 1.0 (0.9-1.2) 12/16/17 18:04 APTT 33.4 Seconds (25.6-37.1) 12/16/17 18:04 - Constitutional Appears: No Acute Distress - Head Exam Head Exam: ATRAUMATIC, NORMAL INSPECTION, NORMOCEPHALIC - Eye Exam Eye Exam: EOMI, Normal appearance, PERRL Pupil Exam: NORMAL ACCOMODATION, PERRL - ENT Exam ENT Exam: Mucous Membranes Moist, Normal Exam - Neck Exam Neck Exam: Full ROM, Normal Inspection. absent: Lymphadenopathy - Respiratory Exam Respiratory Exam: NORMAL BREATHING PATTERN - Cardiovascular Exam Cardiovascular Exam: REGULAR RHYTHM. absent: Murmur - GI/Abdominal Exam GI & Abdominal Exam: Soft, Tenderness, Normal Bowel Sounds. absent: Distended, Firm, Guarding, Rigid, Pulsatile Mass, Rebound Additional comments: RUQ TTP. low abd incision healing. - Extremities Exam Extremities Exam: Full ROM, Normal Capillary Refill, Normal Inspection. absent : Joint Swelling, Pedal Edema - Back Exam Back Exam: NORMAL INSPECTION - Neurological Exam Neurological Exam: Alert, Awake, CN II-XII Intact, Normal Gait, Oriented x3 - Psychiatric Exam Psychiatric exam: Normal Affect, Normal Mood - Skin Skin Exam: Dry, Intact, Normal Color, Warm Assessment and Plan - Assessment and Plan (Free Text) Assessment: 32 yo F w/ biliary colic v gallstone pancreatitis: elevated LFTs LFT trending down. Lipase 334 tbili 2.6 AST 331 ALT 615 Alk Phos 274 -NPO for MRCP -IVF -MRCP to eval for CBD stone -Pain control prn -Repeat LFTs in AM -F/U GI Will Discuss w/ Dr. Ordonez <Oleg Ordonez - Last Filed: 12/17/17 11:17> Subjective - Date & Time of Evaluation Time of Evaluation: 10:40 - Subjective Subjective: Patient was seen and examined at the bedside. Agree with resident's note above Objective - Vital Signs/Intake and Output Vital Signs (last 24 hours): Temp Pulse Resp BP Pulse Ox 97.6 F 65 20 123/77 100 12/17/17 08:42 12/17/17 08:42 12/17/17 08:42 12/17/17 08:42 12/17/17 08:42 - Medications Medications: Current Medications Sodium Chloride (Sodium Chloride 0.9%) 1,000 mls @ 200 mls/hr IV .Q5H REYNOLD Stop: 12/17/17 19:06 Last Admin: 12/17/17 06:33 Dose: 200 mls/hr Ondansetron HCl (Zofran Inj) 4 mg IVP Q6 PRN PRN Reason: Nausea/Vomiting - Labs Labs: 12/17/17 06:20 12/17/17 06:20 PT 11.0 Seconds (9.8-13.1) 12/16/17 18:04 INR 1.0 (0.9-1.2) 12/16/17 18:04 APTT 33.4 Seconds (25.6-37.1) 12/16/17 18:04 Assessment and Plan - Assessment and Plan (Free Text) Plan: - MRCP - Pain control - Hepatitis panel - Repeat labs in am - GI follow up - Will follow
--- NOTE | 2017-12-17 13:49 | MRI ---
Date of service: 12/17/2017 PROCEDURE: Magnetic Resonance Cholangiopancreatography HISTORY: COMPARISON: Abdomen ultrasound 12/16/2017. TECHNIQUE: Multiplanar, multisequence MR images of the abdomen were obtained, including heavily T2 weighted MRCP images of the biliary system. Rotating maximum intensity projection images of the biliary system were generated. FINDINGS: MRCP: Common bile duct is best identified and planar images rather than reformatted datasets. It appears normal in caliber throughout with the gallbladder distended and impressing the common hepatic duct somewhat, with the cystic duct appearing more anteriorly and well from the common bile duct up to its junction. There is no significant intrahepatic biliary dilatation and this common hepatic duct limited narrowing is not felt to be significant. No definite choledocholithiasis. LIVER: Unremarkable. GALLBLADDER: Sludge and likely limited cholelithiasis is felt to present in the dependent lumen with distension as discussed above. Mild mural thickening is identified Limited pericholecystic fluid is seen. Clinically correlate for potential cholecystitis. SPLEEN: Unremarkable. PANCREAS: Unremarkable homogeneous signal seen throughout the pancreas with no contour defects. No pancreatic duct dilatation is identified. ADRENALS: Unremarkable. KIDNEYS: Unremarkable. AORTA: No aneurysm. ASCITES: None. OTHER FINDINGS: None. IMPRESSION: 1. Normal caliber common bile duct. The gallbladder is distended with mild mural thickening and pericholecystic fluid as well as sludge and likely calculi. Clinically correlate for potential cholecystitis. No choledocholithiasis. The gallbladder impresses the common hepatic duct without intrahepatic biliary dilatation. 2. The remainder the examination appears unremarkable.
--- NOTE | 2017-12-17 14:18 | CP.PCM.CON ---
<Christiano Hernandez - Last Filed: 12/17/17 19:22> History of Present Illness - History of Present Illness History of Present Illness: PGY5 GI Initial Consult Tereza Virk is a 32F w/ no sig med hx who presents the ER with complaints of RUQ pain. Pt states that the onset was 3 days prior, it was sudden and non- radiating. Pt noted that the pain was intermittent and progressively worsened. She noted that it was 10 out of 10. She states that food was an aggravating factor. Denies any fever or diaphoresis, but + chills . She notes similiar episode 1 year prior. An Abd u/s revealed cholelithiasis with 5mm CBD. Her LFTs were initially elevated, but quickly declined the 2nd day. Denies any ETOH consumption. PMHx: none PSHx: Family hx: reviewed and denies any GI related malignancy social hx: denies any ETOH, smoking or illicit drug use ROS: 12 point ROS conducted, neg other than above Past Patient History - Infectious Disease Hx of Infectious Diseases: None - Past Medical History & Family History Past Medical History?: Yes - Past Social History Smoking Status: Never Smoked - CARDIAC Hx Cardiac Disorders: No Hx Hypertension: Yes (Gestational HTN) - PULMONARY Hx Respiratory Disorders: No - NEUROLOGICAL Hx Neurological Disorder: No - HEENT Hx HEENT Problems: No - RENAL Hx Chronic Kidney Disease: No - ENDOCRINE/METABOLIC Hx Endocrine Disorders: No - HEMATOLOGICAL/ONCOLOGICAL Hx Blood Disorders: No Hx AIDS: No Hx Human Immunodeficiency Virus (HIV): No - INTEGUMENTARY Hx Dermatological Problems: No - MUSCULOSKELETAL/RHEUMATOLOGICAL Hx Musculoskeletal Disorders: No Hx Falls: No - GASTROINTESTINAL Hx Gastrointestinal Disorders: Yes Hx Constipation: Yes Hx Gall Bladder Disease: Yes - GENITOURINARY/GYNECOLOGICAL Hx Genitourinary Disorders: No - PSYCHIATRIC Hx Psychophysiologic Disorder: No Hx Substance Use: No - SURGICAL HISTORY Hx Surgeries: Yes Hx Section: Yes (05/25/17) - ANESTHESIA Hx Anesthesia: Yes Hx Anesthesia Reactions: No Hx Malignant Hyperthermia: No Has any member of the family had a problem w/ anesthesia?: No Meds Allergies/Adverse Reactions: Allergies Allergy/AdvReac Type Severity Reaction Status Date / Time No Known Allergies Allergy Verified 12/16/17 16:38 - Medications Medications: Current Medications Sodium Chloride (Sodium Chloride 0.9%) 1,000 mls @ 200 mls/hr IV .Q5H REYNOLD Stop: 12/17/17 19:06 Last Admin: 12/17/17 11:58 Dose: 200 mls/hr Ondansetron HCl (Zofran Inj) 4 mg IVP Q6 PRN PRN Reason: Nausea/Vomiting Physical Exam - Constitutional Appears: Well, No Acute Distress - Head Exam Head Exam: ATRAUMATIC, NORMOCEPHALIC - Eye Exam Eye Exam: Normal appearance Pupil Exam: NORMAL ACCOMODATION - ENT Exam ENT Exam: Mucous Membranes Moist, Normal Exam - Neck Exam Neck exam: Positive for: Normal Inspection - Respiratory Exam Respiratory Exam: Clear to Auscultation Bilateral, NORMAL BREATHING PATTERN. absent: Rales, Rhonchi, Wheezes, Respiratory Distress, Stridor - Cardiovascular Exam Cardiovascular Exam: REGULAR RHYTHM, +S1, +S2 - GI/Abdominal Exam GI & Abdominal Exam: Tenderness (RUQ pain). absent: Distended, Firm, Guarding, Hernia, Hypoactive Bowel Sounds, Rigid - Rectal Exam Rectal Exam: absent: Black Stool, Bloody Stool - Extremities Exam Extremities exam: Negative for: joint swelling, pedal edema - Neurological Exam Neurological exam: Alert, Oriented x3 - Psychiatric Exam Psychiatric exam: Normal Affect, Normal Mood - Skin Skin Exam: Dry, Intact, Normal Color, Warm Results - Vital Signs Recent Vital Signs: Last Vital Signs Temp 97.6 F 12/17/17 08:42 Pulse 65 12/17/17 08:42 Resp 20 12/17/17 08:42 BP 123/77 12/17/17 08:42 Pulse Ox 100 12/17/17 08:42 - Labs Result Diagrams: 12/17/17 06:20 12/17/17 06:20 Labs: Laboratory Results - last 24 hr 12/16/17 12/16/17 12/16/17 17:33 17:33 18:04 WBC 6.8 RBC 4.86 Hgb 13.4 Hct 40.0 MCV 82.2 MCH 27.5 MCHC 33.4 RDW 14.2 Plt Count 375 MPV 8.3 Neut % (Auto) 56.8 Lymph % (Auto) 35.0 [place] % (Auto) 7.0 Eos % (Auto) 0.7 Baso % (Auto) 0.5 Neut # (Auto) 3.9 Lymph # (Auto) 2.4 [place] # (Auto) 0.5 Eos # (Auto) 0.0 Baso # (Auto) 0.0 ESR PT 11.0 INR 1.0 APTT 33.4 Sodium 140 Potassium 4.0 Chloride 100 Carbon Dioxide 28 Anion Gap 16 BUN 8 Creatinine 0.6 L Est GFR ( Amer) > 60 Est GFR (Non-Af Amer) > 60 Random Glucose 108 H Calcium 10.1 Total Bilirubin 2.7 H Direct Bilirubin GGT AST 728 H D ALT 956 H D Alkaline Phosphatase 374 H D Total Protein 8.6 H Albumin 4.6 Globulin 3.9 Albumin/Globulin Ratio 1.2 Triglycerides Cholesterol LDL Cholesterol Direct HDL Cholesterol Lipase 334 H IgG 12/16/17 12/16/17 12/17/17 20:16 20:16 06:20 WBC 4.9 RBC 3.95 Hgb 11.0 L D Hct 32.7 L MCV 82.7 MCH 27.8 MCHC 33.6 RDW 14.5 Plt Count 278 MPV 8.1 Neut % (Auto) 49.3 L Lymph % (Auto) 40.3 H [place] % (Auto) 8.6 Eos % (Auto) 1.2 Baso % (Auto) 0.6 Neut # (Auto) 2.4 Lymph # (Auto) 2.0 [place] # (Auto) 0.4 Eos # (Auto) 0.1 Baso # (Auto) 0.0 ESR 41 H PT INR APTT Sodium Potassium Chloride Carbon Dioxide Anion Gap BUN Creatinine Est GFR ( Amer) Est GFR (Non-Af Amer) Random Glucose Calcium Total Bilirubin Direct Bilirubin 2.1 H GGT 999 H AST ALT Alkaline Phosphatase Total Protein Albumin Globulin Albumin/Globulin Ratio Triglycerides Cholesterol LDL Cholesterol Direct HDL Cholesterol Lipase IgG 12/17/17 12/17/17 06:20 07:40 WBC RBC Hgb Hct MCV MCH MCHC RDW Plt Count MPV Neut % (Auto) Lymph % (Auto) [place] % (Auto) Eos % (Auto) Baso % (Auto) Neut # (Auto) Lymph # (Auto) [place] # (Auto) Eos # (Auto) Baso # (Auto) ESR PT INR APTT Sodium 139 Potassium 3.9 Chloride 108 H Carbon Dioxide 23 Anion Gap 12 BUN 5 L Creatinine 0.6 L Est GFR ( Amer) > 60 Est GFR (Non-Af Amer) > 60 Random Glucose 107 H Calcium 8.1 L Total Bilirubin 2.6 H Direct Bilirubin GGT AST 331 H D ALT 615 H D Alkaline Phosphatase 275 H D Total Protein 6.3 Albumin 3.2 L D Globulin 3.1 Albumin/Globulin Ratio 1.0 Triglycerides 92 Cholesterol 131 LDL Cholesterol Direct 58 HDL Cholesterol 39 Lipase IgG 1152.5 Assessment & Plan - Assessment and Plan (Free Text) Assessment: Tereza Virk is a 32F w/ no sig med hx who presents the ER with complaints of RUQ pain RUQ pain likely 2/2 biliary colic vs acute cholecystitis Cholelithiasis Mild GB wall thickening thickening on MRCP Biliary colic Plan: -recommend lap jewel -recurrent biliary colic -MRCP neg for CBD stone, no indication for ERCP -autoimmune and viral serology pending -does not have gallstone pancreatitis (only meets 1 out of 3 criteria) -diet as tolerated -pain management as per pt -finish a 10 day course of abx for potential acute cholecystitis D/W Dr. Dash <Shawn Dash - Last Filed: 01/04/18 11:27> Results - Vital Signs Recent Vital Signs: Last Vital Signs Temp 97.9 F 12/18/17 08:05 Pulse 79 12/18/17 08:05 Resp 18 12/18/17 08:05 BP 114/68 12/18/17 08:05 Pulse Ox 99 12/18/17 08:05 - Labs Result Diagrams: 12/18/17 05:30 12/18/17 05:30 Assessment & Plan - Assessment and Plan (Free Text) Assessment: patient seen and examined and agree with above Shawn Dash MD, PhD
[2017-12-17 19:19] LABS: SQUAMOUS EPITHIAL < 1 /hpf (0-5); URINE BILIRUBIN NEGATIVE (NEGATIVE); URINE BLOOD NEGATIVE (NEGATIVE); URINE CLARITY CLEAR (Clear); URINE COLOR YELLOW (YELLOW); URINE GLUCOSE (UA) NEG (Normal); URINE LEUKOCYTE ESTERASE NEG Leu/uL (Negative); URINE PROTEIN NEGATIVE (NEGATIVE); URINE UROBILINOGEN 0.2-1.0 mg/dL (0.2-1.0)
[2017-12-18 00:13] VITALS: PULSE 79
[2017-12-18] MEDS ORDERED: HYDROmorphone 0.5 mg/0.5 ml ISec IVP PRN (05:51)
[2017-12-18] MEDS ORDERED: Sodium Chloride 0.9% 1,000 ML IV SCH (06:00)
[2017-12-18 06:37] LABS: HEMOGLOBIN 10.9 g/dL (12.0-16.0); MEAN CELL VOLUME 80.6 fl (81.0-99.0); MEAN CORPUSCULAR HEMOGLOBIN 27.7 pg (27.0-31.0); MEAN CORPUSCULAR HGB CONC 34.3 g/dL (33.0-37.0); RBC 3.94 Mil/uL (3.80-5.20); RED CELL DISTRIBUTION WIDTH 14.5 % (11.5-14.5); WHITE BLOOD COUNT 5.7 K/uL (4.8-10.8)
[2017-12-18 06:53] LABS: ALT/SGPT 412 U/L (9-52); AST/SGOT 110 U/L (14-36); BLOOD UREA NITROGEN 4 mg/dl (7-17); CALCIUM 8.4 mg/dL (8.4-10.2); GFR NON-AFRICAN AMERICAN > 60
[2017-12-18 06:59] LABS: ALBUMIN 3.4 g/dL (3.5-5.0)
--- NOTE | 2017-12-18 07:41 | CP.PCM.PN ---
Subjective - Date & Time of Evaluation Date of Evaluation: 12/18/17 Time of Evaluation: 07:00 - Subjective Subjective: General Surgery Dr. Ordonez Pt S&E @bedside. MRCP yesterday showed no choledocholithaisis. NAEO. no complaints. denies abd pain, F/C, N/V, D/C. tolerating CLD. Objective - Vital Signs/Intake and Output Vital Signs (last 24 hours): Temp Pulse Resp BP Pulse Ox 98.5 F 79 19 145/69 100 12/18/17 01:00 12/18/17 01:00 12/18/17 01:00 12/18/17 01:00 12/18/17 01:00 - Medications Medications: Current Medications Hydromorphone HCl (Dilaudid) 0.5 mg IVP Q4 PRN PRN Reason: Pain, severe (8-10) Sodium Chloride (Sodium Chloride 0.9%) 1,000 mls @ 125 mls/hr IV .Q8H REYNOLD Stop: 12/19/17 05:51 Last Admin: 12/18/17 06:23 Dose: 125 mls/hr Ceftriaxone Sodium 1 gm/ (Sodium Chloride) 100 mls @ 100 mls/hr IVPB Q12 REYNOLD PRN Reason: Protocol Ondansetron HCl (Zofran Inj) 4 mg IVP Q6 PRN PRN Reason: Nausea/Vomiting - Labs Labs: 12/18/17 05:30 12/18/17 05:30 PT 11.0 Seconds (9.8-13.1) 12/16/17 18:04 INR 1.0 (0.9-1.2) 12/16/17 18:04 APTT 33.4 Seconds (25.6-37.1) 12/16/17 18:04 - Constitutional Appears: Non-toxic, No Acute Distress - Head Exam Head Exam: NORMAL INSPECTION - Eye Exam Eye Exam: Normal appearance - ENT Exam ENT Exam: Mucous Membranes Moist - Respiratory Exam Respiratory Exam: NORMAL BREATHING PATTERN. absent: Accessory Muscle Use, Respiratory Distress - Cardiovascular Exam Cardiovascular Exam: REGULAR RHYTHM. absent: Bradycardia, Tachycardia - GI/Abdominal Exam GI & Abdominal Exam: Soft. absent: Distended, Firm, Guarding, Tenderness, Rebound - Extremities Exam Extremities Exam: Normal Inspection - Neurological Exam Neurological Exam: Alert, Awake, Oriented x3 - Psychiatric Exam Psychiatric exam: Normal Affect, Normal Mood - Skin Skin Exam: Dry, Intact, Normal Color, Warm Assessment and Plan - Assessment and Plan (Free Text) Assessment: 32 y/o F w/ resolved abd pain and hyperbilirubinemia w/ improved transaminitis - MRCP: no choledochollithaisis, possible Mirizzi syndrome - improved LFTs - advance to low fat diet - monitor vitals - cont pain management - cleared for discharge if tolerates diet - f/u in office for elective cholecystectomy Pt discussed w/ Dr. Mery Taylor DO PGY3
[2017-12-18 08:01] LABS: ALB/GLOB RATIO 1.1 (1.0-2.1)
[2017-12-18 08:06] VITALS: BP 114/68; RESP 18; TEMP 97.9; O2SAT 99
--- NOTE | 2017-12-18 10:38 | CP.PCM.PN ---
Subjective - Date & Time of Evaluation Date of Evaluation: 12/18/17 Time of Evaluation: 10:29 - Subjective Subjective: General Surgery Pt seen and examined this AM. Pt reports feeling significantly better. (-) N/V /D/C. Labs and vitals noted. MRCP reviewed with (-) choledoocolithiasis. PE Gen: pt sitting in bed in NAD Skin: warm and dry, (-) jaundice Cardio: s1s2 RRRR Lungs: CTA bilaterally Abd: Soft NTND Extr: (-) calf tenderness A/P RUQ pain, elevated LFTs, Cholelithiasis Pt likely passed stone Pt will be contacted by Dr. Ordonez's office to schedule a lap jewel electively. Pt discharged from surgery service Objective - Vital Signs/Intake and Output Vital Signs (last 24 hours): Temp Pulse Resp BP Pulse Ox 97.9 F 79 18 114/68 99 12/18/17 08:05 12/18/17 08:05 12/18/17 08:05 12/18/17 08:05 12/18/17 08:05 - Medications Medications: Current Medications Ceftriaxone Sodium 1 gm/ (Sodium Chloride) 100 mls @ 100 mls/hr IVPB Q12 REYNOLD PRN Reason: Protocol Last Admin: 12/18/17 08:18 Dose: 100 mls/hr Ondansetron HCl (Zofran Inj) 4 mg IVP Q6 PRN PRN Reason: Nausea/Vomiting - Labs Labs: 12/18/17 05:30 12/18/17 05:30 PT 11.0 Seconds (9.8-13.1) 12/16/17 18:04 INR 1.0 (0.9-1.2) 12/16/17 18:04 APTT 33.4 Seconds (25.6-37.1) 12/16/17 18:04
--- NOTE | 2017-12-18 12:43 | CP.PCM.DIS ---
<Leonardo Hernandez - Last Filed: 12/18/17 13:25> Provider - Provider Date of Admission: 12/16/17 18:55 Attending physician: Christiane Vanegas MD Time Spent in preparation of Discharge (in minutes): 15 Diagnosis - Discharge Diagnosis (1) Cholelithiasis Status: Acute (2) Acute cholecystitis Status: Resolved Hospital Course - Lab Results Lab Results: Most Recent Lab Values WBC 5.7 K/uL (4.8-10.8) 12/18/17 05:30 RBC 3.94 Mil/uL (3.80-5.20) 12/18/17 05:30 Hgb 10.9 g/dL (12.0-16.0) L 12/18/17 05:30 Hct 31.8 % (34.0-47.0) L 12/18/17 05:30 MCV 80.6 fl (81.0-99.0) L D 12/18/17 05:30 MCH 27.7 pg (27.0-31.0) 12/18/17 05:30 MCHC 34.3 g/dL (33.0-37.0) 12/18/17 05:30 RDW 14.5 % (11.5-14.5) 12/18/17 05:30 Plt Count 271 K/uL (130-400) 12/18/17 05:30 MPV 8.1 fl (7.2-11.7) 12/17/17 06:20 Neut % (Auto) 49.3 % (50.0-75.0) L 12/17/17 06:20 Lymph % (Auto) 40.3 % (20.0-40.0) H 12/17/17 06:20 [place] % (Auto) 8.6 % (0.0-10.0) 12/17/17 06:20 Eos % (Auto) 1.2 % (0.0-4.0) 12/17/17 06:20 Baso % (Auto) 0.6 % (0.0-2.0) 12/17/17 06:20 Neut # (Auto) 2.4 K/uL (1.8-7.0) 12/17/17 06:20 Lymph # (Auto) 2.0 K/uL (1.0-4.3) 12/17/17 06:20 [place] # (Auto) 0.4 K/uL (0.0-0.8) 12/17/17 06:20 Eos # (Auto) 0.1 K/uL (0.0-0.7) 12/17/17 06:20 Baso # (Auto) 0.0 K/uL (0.0-0.2) 12/17/17 06:20 ESR 41 mm/hr (0-20) H 12/16/17 20:16 PT 11.0 Seconds (9.8-13.1) 12/16/17 18:04 INR 1.0 (0.9-1.2) 12/16/17 18:04 APTT 33.4 Seconds (25.6-37.1) 12/16/17 18:04 Sodium 141 mmol/l (132-148) 12/18/17 05:30 Potassium 4.3 MMOL/L (3.6-5.0) 12/18/17 05:30 Chloride 106 mmol/L (98-107) 12/18/17 05:30 Carbon Dioxide 25 mmol/L (22-30) 12/18/17 05:30 Anion Gap 14 (10-20) 12/18/17 05:30 BUN 4 mg/dl (7-17) L 12/18/17 05:30 Creatinine 0.6 mg/dl (0.7-1.2) L 12/18/17 05:30 Est GFR ( Amer) > 60 12/18/17 05:30 Est GFR (Non-Af Amer) > 60 12/18/17 05:30 Random Glucose 80 mg/dL (65-105) 12/18/17 05:30 Calcium 8.4 mg/dL (8.4-10.2) 12/18/17 05:30 Total Bilirubin 0.9 mg/dl (0.2-1.3) 12/18/17 05:30 Direct Bilirubin 2.1 mg/ml (0.0-0.4) H 12/16/17 20:16 GGT 999 U/L (8-78) H 12/16/17 20:16 AST 110 U/L (14-36) H D 12/18/17 05:30 ALT 412 U/L (9-52) H D 12/18/17 05:30 Alkaline Phosphatase 249 U/L (38-126) H 12/18/17 05:30 Total Protein 6.6 G/DL (6.3-8.2) 12/18/17 05:30 Albumin 3.4 g/dL (3.5-5.0) L 12/18/17 05:30 Globulin 3.2 gm/dL (2.2-3.9) 12/18/17 05:30 Albumin/Globulin Ratio 1.1 (1.0-2.1) 12/18/17 05:30 Triglycerides 92 mg/DL (0-149) 12/17/17 06:20 Cholesterol 131 mg/dL (0-199) 12/17/17 06:20 LDL Cholesterol Direct 58 mg/dL (0-129) 12/17/17 06:20 HDL Cholesterol 39 MG/DL (30-70) 12/17/17 06:20 Lipase 334 U/L (23-300) H 12/16/17 17:33 Urine Color Yellow (YELLOW) 12/17/17 19:00 Urine Clarity Clear (Clear) 12/17/17 19:00 Urine pH 6.0 (5.0-8.0) 12/17/17 19:00 Ur Specific [place] 1.008 (1.003-1.030) 12/17/17 19:00 Urine Protein Negative mg/dL (NEGATIVE) 12/17/17 19:00 Urine Glucose (UA) Neg mg/dL (Normal) 12/17/17 19:00 Urine Ketones Trace mg/dL (NEGATIVE) 12/17/17 19:00 Urine Blood Negative (NEGATIVE) 12/17/17 19:00 Urine Nitrate Negative (NEGATIVE) 12/17/17 19:00 Urine Bilirubin Negative (NEGATIVE) 12/17/17 19:00 Urine Urobilinogen 0.2-1.0 mg/dL (0.2-1.0) 12/17/17 19:00 Ur Leukocyte Esterase Neg Ray/uL (Negative) 12/17/17 19:00 Urine RBC (Auto) 1 /hpf (0-3) 12/17/17 19:00 Urine Microscopic WBC 1 /hpf (0-5) 12/17/17 19:00 Ur Squamous Epith Cells < 1 /hpf (0-5) 12/17/17 19:00 IgG 1152.5 mg/dL (700.0-1600.0) 12/17/17 07:40 - Hospital Course Hospital Course: 32 y/o F with no significant PMhx is admitted to hosp after presenting to ED with c/o epigastric and RUQ pain for 3 days. Patient evaluated, CBC, CMP, US abdomen and MRCP done. Improvement of abdominal pain and nausea with IV fluids, NPO and pain medications. Patient evaluated and cleared by surgery. Patient with possible biliary colic vs acute cholecystis. LFTs improving. Patient counseled about diet. Patient to F/U with surgery on outpatient basis. Discharge Exam - Head Exam Head Exam: NORMAL INSPECTION - Eye Exam Eye Exam: EOMI, Normal appearance, PERRL Pupil Exam: NORMAL ACCOMODATION, PERRL - ENT Exam ENT Exam: Mucous Membranes Moist - Neck Exam Neck exam: Full Rom - Respiratory Exam Respiratory Exam: Clear to PA & Lateral, NORMAL BREATHING PATTERN. absent: Rales, Rhonchi, Wheezes, Respiratory Distress - Cardiovascular Exam Cardiovascular Exam: REGULAR RHYTHM, +S1, +S2 - GI/Abdominal Exam GI & Abdominal Exam: Normal Bowel Sounds, Soft. absent: Distended, Firm, Guarding, Tenderness - Back Exam Back exam: absent: CVA tenderness (L), CVA tenderness (R), tenderness - Neurological Exam Neurological exam: Alert, Oriented x3 - Psychiatric Exam Psychiatric exam: Normal Affect, Normal Mood - Skin Skin Exam: Dry, Intact, Normal Color Discharge Plan - Follow Up Plan Condition: FAIR Disposition: HOME/ ROUTINE Instructions: Gallstones (DC) Additional Instructions: follow up with primary MD 1 week Please call to schedule a clinic appointment with Dr. Ordonez to discuss scheduling surgery to remove your gallbladder Referrals: Oleg Ordonez MD [Staff Provider] - Shawn Dash MD, PhD [Staff Provider] - <Sidra Carter - Last Filed: 12/19/17 09:01> Provider - Provider Date of Admission: 12/16/17 18:55 Attending physician: Christiane Vanegas MD Hospital Course - Lab Results Lab Results: Most Recent Lab Values WBC 5.7 K/uL (4.8-10.8) 12/18/17 05:30 RBC 3.94 Mil/uL (3.80-5.20) 12/18/17 05:30 Hgb 10.9 g/dL (12.0-16.0) L 12/18/17 05:30 Hct 31.8 % (34.0-47.0) L 12/18/17 05:30 MCV 80.6 fl (81.0-99.0) L D 12/18/17 05:30 MCH 27.7 pg (27.0-31.0) 12/18/17 05:30 MCHC 34.3 g/dL (33.0-37.0) 12/18/17 05:30 RDW 14.5 % (11.5-14.5) 12/18/17 05:30 Plt Count 271 K/uL (130-400) 12/18/17 05:30 MPV 8.1 fl (7.2-11.7) 12/17/17 06:20 Neut % (Auto) 49.3 % (50.0-75.0) L 12/17/17 06:20 Lymph % (Auto) 40.3 % (20.0-40.0) H 12/17/17 06:20 [place] % (Auto) 8.6 % (0.0-10.0) 12/17/17 06:20 Eos % (Auto) 1.2 % (0.0-4.0) 12/17/17 06:20 Baso % (Auto) 0.6 % (0.0-2.0) 12/17/17 06:20 Neut # (Auto) 2.4 K/uL (1.8-7.0) 12/17/17 06:20 Lymph # (Auto) 2.0 K/uL (1.0-4.3) 12/17/17 06:20 [place] # (Auto) 0.4 K/uL (0.0-0.8) 12/17/17 06:20 Eos # (Auto) 0.1 K/uL (0.0-0.7) 12/17/17 06:20 Baso # (Auto) 0.0 K/uL (0.0-0.2) 12/17/17 06:20 ESR 41 mm/hr (0-20) H 12/16/17 20:16 PT 11.0 Seconds (9.8-13.1) 12/16/17 18:04 INR 1.0 (0.9-1.2) 12/16/17 18:04 APTT 33.4 Seconds (25.6-37.1) 12/16/17 18:04 Sodium 141 mmol/l (132-148) 12/18/17 05:30 Potassium 4.3 MMOL/L (3.6-5.0) 12/18/17 05:30 Chloride 106 mmol/L (98-107) 12/18/17 05:30 Carbon Dioxide 25 mmol/L (22-30) 12/18/17 05:30 Anion Gap 14 (10-20) 12/18/17 05:30 BUN 4 mg/dl (7-17) L 12/18/17 05:30 Creatinine 0.6 mg/dl (0.7-1.2) L 12/18/17 05:30 Est GFR ( Amer) > 60 12/18/17 05:30 Est GFR (Non-Af Amer) > 60 12/18/17 05:30 Random Glucose 80 mg/dL (65-105) 12/18/17 05:30 Calcium 8.4 mg/dL (8.4-10.2) 12/18/17 05:30 Total Bilirubin 0.9 mg/dl (0.2-1.3) 12/18/17 05:30 Direct Bilirubin 2.1 mg/ml (0.0-0.4) H 12/16/17 20:16 GGT 999 U/L (8-78) H 12/16/17 20:16 AST 110 U/L (14-36) H D 12/18/17 05:30 ALT 412 U/L (9-52) H D 12/18/17 05:30 Alkaline Phosphatase 249 U/L (38-126) H 12/18/17 05:30 Total Protein 6.6 G/DL (6.3-8.2) 12/18/17 05:30 Albumin 3.4 g/dL (3.5-5.0) L 12/18/17 05:30 Globulin 3.2 gm/dL (2.2-3.9) 12/18/17 05:30 Albumin/Globulin Ratio 1.1 (1.0-2.1) 12/18/17 05:30 Triglycerides 92 mg/DL (0-149) 12/17/17 06:20 Cholesterol 131 mg/dL (0-199) 12/17/17 06:20 LDL Cholesterol Direct 58 mg/dL (0-129) 12/17/17 06:20 HDL Cholesterol 39 MG/DL (30-70) 12/17/17 06:20 Lipase 334 U/L (23-300) H 12/16/17 17:33 Urine Color Yellow (YELLOW) 12/17/17 19:00 Urine Clarity Clear (Clear) 12/17/17 19:00 Urine pH 6.0 (5.0-8.0) 12/17/17 19:00 Ur Specific [place] 1.008 (1.003-1.030) 12/17/17 19:00 Urine Protein Negative mg/dL (NEGATIVE) 12/17/17 19:00 Urine Glucose (UA) Neg mg/dL (Normal) 12/17/17 19:00 Urine Ketones Trace mg/dL (NEGATIVE) 12/17/17 19:00 Urine Blood Negative (NEGATIVE) 12/17/17 19:00 Urine Nitrate Negative (NEGATIVE) 12/17/17 19:00 Urine Bilirubin Negative (NEGATIVE) 12/17/17 19:00 Urine Urobilinogen 0.2-1.0 mg/dL (0.2-1.0) 12/17/17 19:00 Ur Leukocyte Esterase Neg Ray/uL (Negative) 12/17/17 19:00 Urine RBC (Auto) 1 /hpf (0-3) 12/17/17 19:00 Urine Microscopic WBC 1 /hpf (0-5) 12/17/17 19:00 Ur Squamous Epith Cells < 1 /hpf (0-5) 12/17/17 19:00 IgG 1152.5 mg/dL (700.0-1600.0) 12/17/17 07:40 Attending/Attestation - Attestation I have personally seen and examined this patient.: Yes I have fully participated in the care of the patient.: Yes I have reviewed all pertinent clinical information, including history, physical exam and plan: Yes Notes (Text): 12/19/17 09:00 ATTENDING NOTE - PATIENT SEEN AND EXAMINED. SHE REPORTS SHE IS WITHOUT PAIN OR N /V. HOSPICE RN RECOMMENDS OUT PATIENT FOLLOW UP FOR ELECTIVE CHOLECYSTECTOMY.
== END 2017-12-18 14:40 | disposition home or self-care (01) ==
LOC: H.ER 16:25 → H.ERHOLD 18:55 → H.MEDSURG1 21:10
PROVIDERS: ADMIT Family Medicine Geriatric Medicine; ATTEND Family Medicine Geriatric Medicine
DX: K80.00 Calculus of gallbladder with acute cholecystitis without obstruction (principal); K83.0 Cholangitis; K85.10 Biliary acute pancreatitis without necrosis or infection; Z87.11 Personal history of peptic ulcer disease; Z98.891 History of uterine scar from previous surgery; R17 Unspecified jaundice; R74.8 Abnormal levels of other serum enzymes; M54.5 Low back pain; R74.0 Nonspecific elevation of levels of transaminase and lactic acid dehydrogenase [LDH]; R79.89 Other specified abnormal findings of blood chemistry; Z83.3 Family history of diabetes mellitus; I10 Essential (primary) hypertension; K59.00 Constipation, unspecified
CPT/HCPCS: 36415; 74181; 76700; 80053; 80061; 81003; 81025; 82248; 82784; 82977; 83690; 85025; 85027; 85610; 85651; 85730; 86039; 86255; 86376; 96374; 99285; G0378; J0696; J1885; J2405; J7030

== ENCOUNTER 2018-01-19 11:02 | Inpatient (IN) | payer SELFPAY ==
[2018-01-19 11:10] VITALS: BMI 29.6
[2018-01-19] MEDS ORDERED: Sodium Chloride 0.9% 1,000 ML IV STA (11:56)
--- NOTE | 2018-01-19 12:13 | ED PDOC ---
HPI: Abdomen Time Seen by Provider: 01/19/18 11:37 Chief Complaint (Nursing): Abdominal Pain Chief Complaint (Provider): return abdominal pain History Per: Patient, Insole Rasper (Mj Pham ) History/Exam Limitations: no limitations Onset/Duration Of Symptoms: Hrs (approx 14) Current Symptoms Are (Timing): Still Present Context: Food Severity: Moderate Location Of Pain/Discomfort: RUQ, Epigastric Quality Of Discomfort: Sharp Associated Symptoms: Nausea Exacerbating Factors: None Alleviating Factors: None Additional Complaint(s): 32yo female, had recent hospitalization for choledocholithiasis, LFTs and pain improved thus likely passed stone, now represents with return of pain, nausea and anorexia since last night. Denies fever, melena, hematemesis, yellowing of skin or eyes or diarrhea. Patient states never followed up after prior hospitalization. PMD VAC Abnormal Vaginal Bleeding: No Past Medical History Reviewed: Historical Data, Nursing Documentation, Vital Signs Vital Signs: Last Vital Signs Temp 98.1 F 01/19/18 11:40 Pulse 80 01/19/18 11:40 Resp 20 01/19/18 11:40 BP 135/91 H 01/19/18 11:40 Pulse Ox 100 01/19/18 12:15 - Medical History PMH: Gastrointestinal Ulcer, Gall Bladder Disease, HTN (Gestational HTN) Denies: Depression, Diabetes, HIV, Chronic Kidney Disease - Surgical History Surgical History: - Family History Family History: States: Unknown Family Hx, Diabetes, Hypertension - Living Arrangements Living Arrangements: With Family - Social History Current smoker - smoking cessation education provided: No - Home Medications Home Medications: Ambulatory Orders Medication Instructions Recorded No Known Home Med 12/17/17 - Allergies Allergies/Adverse Reactions: Allergies Allergy/AdvReac Type Severity Reaction Status Date / Time No Known Allergies Allergy Verified 12/16/17 16:38 Review of Systems ROS Statement: Except As Marked, All Systems Reviewed And Found Negative Constitutional: Negative for: Fever, Chills ENT: Negative for: Throat Pain Cardiovascular: Negative for: Chest Pain, Palpitations Respiratory: Negative for: Cough, Shortness of Breath Gastrointestinal: Positive for: Nausea, Abdominal Pain. Negative for: Diarrhea Genitourinary Female: Negative for: Dysuria, Frequency Musculoskeletal: Negative for: Neck Pain, Arm Pain, Leg Pain Skin: Negative for: Rash, Lesions, Jaundice Neurological: Negative for: Weakness, Numbness Psych: Negative for: Depression Physical Exam - Reviewed Nursing Documentation Reviewed: Yes Vital Signs Reviewed: Yes - Physical Exam Appears: Positive for: Well, Non-toxic, No Acute Distress Head Exam: Positive for: ATRAUMATIC, NORMAL INSPECTION, NORMOCEPHALIC Skin: Positive for: Normal Color, Warm, DRY Eye Exam: Positive for: EOMI, Normal appearance, PERRL ENT: Positive for: Normal ENT Inspection Neck: Positive for: Normal, Painless ROM Cardiovascular/Chest: Positive for: Regular Rate, Rhythm Respiratory: Positive for: CNT, Normal Breath Sounds Gastrointestinal/Abdominal: Positive for: Soft, Tenderness (RUQ and epigastrum) , Guarding (RUQ) Back: Positive for: Normal Inspection Extremity: Positive for: Normal ROM Neurologic/Psych: Positive for: Alert, Oriented - Laboratory Results Result Diagrams: 01/19/18 12:00 01/19/18 12:00 - ECG O2 Sat by Pulse Oximetry: 100 Medical Decision Making Medical Decision Making: workup for recurrent upper abd pain r/o return of cholelithiasis choledocholithiasis or cholecystitis. pain medicine, labs and US RUQ ordered prior charts reviewed labs reviewed and trended, revealing return of elevated LFTs Tbili 2.5 and transaminases elevated into 700s. Alk phos 247, lipase normal US +acute cholecystitis Admit FP service GI information management specialist Dr Walker contacted and rec MRCP, ordered Zosyn initiated Remain NPO Disposition - Clinical Impression Clinical Impression: Choledocholithiasis with acute cholecystitis - Patient ED Disposition Is Patient to be Admitted: Yes Counseled Patient/Family Regarding: Studies Performed, Diagnosis, Need For Followup - Disposition Disposition Time: 13:10 Condition: STABLE Forms: [facility] (Persian)
[2018-01-19 12:23] LABS: SQUAMOUS EPITHIAL 1 /hpf (0-5); URINE BACTERIA RARE (<OCC); URINE BILIRUBIN NEGATIVE (NEGATIVE); URINE BLOOD NEGATIVE (NEGATIVE); URINE CLARITY SLIGHTY-CLOUDY (Clear); URINE COLOR AMBER (YELLOW); URINE GLUCOSE (UA) NEG (Normal); URINE LEUKOCYTE ESTERASE NEG Leu/uL (Negative); URINE PROTEIN 30 mg/dL (NEGATIVE)
[2018-01-19 12:30] LABS: ALB/GLOB RATIO 1.1 (1.0-2.1); ALBUMIN 5.1 g/dL (3.5-5.0); ALT/SGPT 660 U/L (9-52); AST/SGOT 744 U/L (14-36); BLOOD UREA NITROGEN 10 mg/dl (7-17); CALCIUM 10.3 mg/dL (8.4-10.2); GFR NON-AFRICAN AMERICAN > 60; LIPASE 220 U/L (23-300)
[2018-01-19 12:31] LABS: BASO % 0.3 % (0.0-2.0); EOS % 0.2 % (0.0-4.0); HEMOGLOBIN 14.3 g/dL (12.0-16.0); LYMPH # 1.5 K/uL (1.0-4.3); LYMPH % 20.2 % (20.0-40.0); MEAN CORPUSCULAR HEMOGLOBIN 27.8 pg (27.0-31.0); MEAN CORPUSCULAR HGB CONC 33.9 g/dL (33.0-37.0); MEAN PLATELET VOLUME 8.9 fl (7.2-11.7); MONO # 0.4 K/uL (0.0-0.8); MONO % 5.6 % (0.0-10.0); NEUT # 5.5 K/uL (1.8-7.0); NEUT % 73.7 % (50.0-75.0); NRBC % 0.1 % (0.0-0.0); RBC 5.13 Mil/uL (3.80-5.20); RED CELL DISTRIBUTION WIDTH 14.3 % (11.5-14.5); WHITE BLOOD COUNT 7.5 K/uL (4.8-10.8)
[2018-01-19] MEDS ORDERED: Piperacillin/Tazobact 3.375 GM in Sodium Chloride 0.9% 100 ML IVPB STA (13:43)
--- NOTE | 2018-01-19 13:43 | US ---
Date of service: 01/19/2018 HISTORY: RUQ, GB/liver/CBD/pancreatitis COMPARISON: MRCP dated 12/17/2017; Abdominal ultrasound dated 12/16/2017. TECHNIQUE: Sonographic evaluation of the right upper quadrant of the abdomen. FINDINGS: LIVER: Measures 13.8 cm in length. Normal echogenicity of the liver parenchyma. No mass. No intrahepatic bile duct dilatation. GALLBLADDER: Cholelithiasis with borderline gallbladder wall thickening. Sonographic Morgan sign was elicited. COMMON BILE DUCT: Measures 6 mm. No stones. No dilatation. PANCREAS: Slightly heterogeneous. No mass. No ductal dilatation. RIGHT KIDNEY: Measures cm in length. Normal echogenicity. No calculus, mass, or hydronephrosis. AORTA: No aneurysmal dilatation. IVC: Unremarkable. OTHER FINDINGS: None . IMPRESSION: Cholelithiasis with positive sonographic Morgan sign. Findings are highly suspicious for acute cholecystitis. Slight heterogeneity to the pancreas raise the possibility of acute pancreatitis.
[2018-01-19] MEDS ORDERED: Piperacillin/Tazobact 3.375 gm Inj IVPB ONE (13:51)
--- NOTE | 2018-01-19 14:38 | CP.PCM.HP ---
History of Present Illness - History of Present Illness History of Present Illness: 32 year old female presents with complaints of abdominal pain for past day with associated chills and nausea. Denies any fever, vomiting, diarrhea, admits to having constipation. Pain is severe in right upper quadrant and epigastric region. Has history of cholelithiasis. Has not eaten anything today, only drinking liquids today. She was recently admitted with similar symptoms. PMH: cholelithiasis Medications: none Surgical Hx: x 1 Social hx: denies x 3 SPECIAL EDUCATOR: LMP 12/28/17, not currently on contraception Present on Admission - Present on Admission Any Indicators Present on Admission: No Past Patient History - Infectious Disease Hx of Infectious Diseases: None - Past Medical History & Family History Past Medical History?: Yes - Past Social History Smoking Status: Never Smoked - CARDIAC Hx Hypertension: Yes (Gestational HTN) - PULMONARY Hx Respiratory Disorders: No - NEUROLOGICAL Hx Neurological Disorder: No - HEENT Hx HEENT Problems: No - RENAL Hx Chronic Kidney Disease: No - ENDOCRINE/METABOLIC Hx Endocrine Disorders: No - HEMATOLOGICAL/ONCOLOGICAL Hx Human Immunodeficiency Virus (HIV): No - INTEGUMENTARY Hx Dermatological Problems: No - MUSCULOSKELETAL/RHEUMATOLOGICAL Hx Musculoskeletal Disorders: No Hx Falls: No - GASTROINTESTINAL Hx Gall Bladder Disease: Yes - GENITOURINARY/GYNECOLOGICAL Hx Genitourinary Disorders: No - PSYCHIATRIC Hx Depression: No - SURGICAL HISTORY Hx Surgeries: Yes Hx Section: Yes (05/25/17) - ANESTHESIA Hx Anesthesia: Yes Hx Anesthesia Reactions: No Hx Malignant Hyperthermia: No Meds Allergies/Adverse Reactions: Allergies Allergy/AdvReac Type Severity Reaction Status Date / Time No Known Allergies Allergy Verified 12/16/17 16:38 Physical Exam - Constitutional Appears: Non-toxic, No Acute Distress - Head Exam Head Exam: ATRAUMATIC, NORMAL INSPECTION, NORMOCEPHALIC - Eye Exam Eye Exam: Normal appearance, PERRL - Neck Exam Neck exam: Positive for: Normal Inspection - Respiratory Exam Respiratory Exam: Clear to Auscultation Bilateral, NORMAL BREATHING PATTERN - Cardiovascular Exam Cardiovascular Exam: REGULAR RHYTHM, +S1, +S2. absent: Bradycardia, Tachycardia , Diastolic murmur, Systolic Murmur - GI/Abdominal Exam GI & Abdominal Exam: Diminished Bowel Sounds, Soft, Tenderness (mild ruq tenderness with deep palpation). absent: Distended, Firm, Guarding, Rebound - Neurological Exam Neurological exam: Alert, CN II-XII Intact, Oriented x3 - Skin Skin Exam: Dry, Intact, Normal Color, Warm Results - Vital Signs Recent Vital Signs: Last Vital Signs Temp 98.1 F 01/19/18 11:40 Pulse 80 01/19/18 11:40 Resp 20 01/19/18 11:40 BP 135/91 H 01/19/18 11:40 Pulse Ox 100 01/19/18 13:56 - Labs Result Diagrams: 01/19/18 12:00 01/19/18 12:00 Labs: Laboratory Results - last 24 hr 01/19/18 01/19/18 01/19/18 12:00 12:00 12:00 WBC 7.5 RBC 5.13 Hgb 14.3 D Hct 42.1 MCV 82.0 MCH 27.8 MCHC 33.9 RDW 14.3 Plt Count 321 MPV 8.9 Neut % (Auto) 73.7 Lymph % (Auto) 20.2 [place] % (Auto) 5.6 Eos % (Auto) 0.2 Baso % (Auto) 0.3 Neut # (Auto) 5.5 Lymph # (Auto) 1.5 [place] # (Auto) 0.4 Eos # (Auto) 0.0 Baso # (Auto) 0.0 Sodium 139 Potassium 4.3 Chloride 101 Carbon Dioxide 25 Anion Gap 17 BUN 10 Creatinine 0.7 Est GFR ( Amer) > 60 Est GFR (Non-Af Amer) > 60 Random Glucose 113 H Calcium 10.3 H Total Bilirubin 2.6 H AST 744 H D ALT 660 H D Alkaline Phosphatase 247 H Total Protein 9.6 H Albumin 5.1 H D Globulin 4.5 H Albumin/Globulin Ratio 1.1 Lipase 220 Urine Color Brandy Urine Clarity Slighty-cloudy Urine pH 6.0 Ur Specific [place] 1.018 Urine Protein 30 Urine Glucose (UA) Neg Urine Ketones Negative Urine Blood Negative Urine Nitrate Negative Urine Bilirubin Negative Urine Urobilinogen 2.0 H Ur Leukocyte Esterase Neg Urine RBC (Auto) 3 Urine Microscopic WBC 1 Ur Squamous Epith Cells 1 Urine Bacteria Rare Assessment & Plan - Assessment and Plan (Free Text) Assessment: 32 year old female with hx of cholelithisasis admitted for acute cholecystitis. Patient afebrile without leukocytosis, + sonographic kaur sign. 1) Abdominal pain with nausea, possibly secondary to cholecystitis, rule out choledocolithiasis 2) Transaminitis 3) DVT prophylaxis Plan: GI consult - pt for MRCP. Surgery consult pending. Continue Zosyn NPO IVF pain control SCDS
[2018-01-19] MEDS: Lactated Ringer's 1,000 ML IV SCH (15:55)
--- NOTE | 2018-01-19 17:39 | MRI ---
Date of service: 01/19/2018 PROCEDURE: Magnetic Resonance Cholangiopancreatography HISTORY: Evaluate for choledocholithiasis COMPARISON: Correlation is made to abdominal ultrasound performed earlier the same day; MRCP performed 12/17/2017 TECHNIQUE: Multiplanar, multisequence MR images of the abdomen were obtained, including heavily T2 weighted MRCP images of the biliary system. Rotating maximum intensity projection images of the biliary system were generated. FINDINGS: MRCP: The common bile duct is of a normal caliber. No evidence of choledocholithiasis. No intrahepatic biliary ductal dilatation. LIVER: Unremarkable. GALLBLADDER: Distended gallbladder with minimal cholelithiasis, prominent gallbladder wall thickening/ edema and pericholecystic fluid. Small gallstone within the cystic duct. SPLEEN: Unremarkable. PANCREAS: Unremarkable. ADRENALS: Unremarkable. KIDNEYS: Unremarkable. AORTA: No aneurysm. ASCITES: None. OTHER FINDINGS: None. IMPRESSION: Cholelithiasis with gallbladder wall thickening/ edema and pericholecystic fluid. Small gallstone in the cystic duct. Findings are consistent with acute cholecystitis. No evidence of choledocholithiasis.
--- NOTE | 2018-01-19 18:56 | CP.PCM.CON ---
<Tessa Cardona - Last Filed: 01/19/18 18:53> History of Present Illness - History of Present Illness History of Present Illness: General surgery consult note for Dr. Lili Cardona, PGY-2 Pt S & E at bedside 1720 32F w/PMH sig for symptomatic cholelithiasis consulted for RUQ ab pain x 1 day. Pt reports epigastric & RUQ ab pain that does not radiate, constant since onset with increasing in intensity over time. Pt reports eating cheese and figs last night. Admits to nausea, chills, constipation, dark urine, dizziness, fatigue/ being tired. Pt reports similar episode 1 year prior and 1 month prior, pt was hospitalized for the recent episode. Denies fevers, diarrhea, dysuria, back pain , headache, vision changes, numbness/tingling. In ED - afebrile, no leukocytosis. T bili 2.6, LFTs elevated. Lipase WNL. MRCP done w/cholelithiasis w/GB wall thickening/edema, pericholecystic fluid, small gallstone in cystic duct. Findings consistent with acute cholecystitis. CBD normal caliber, no evidence of choledocholithiasis. No intrahepatic biliary ductal dilatation. Ab U/S cholelithiasis, + sonographic Morgan's sign. PMH: Cholelithiasis PSH: x 1 All: NKDA SH: Denies ETOH, tobacco or illicit drug use PMD: Denies Review of Systems - Review of Systems All systems: reviewed and no additional remarkable complaints except - Constitutional Constitutional: Chills. absent: Fever, Headache - EENT Eyes: absent: Change in Vision Ears: Dizziness Nose/Mouth/Throat: absent: Sore Throat - Cardiovascular Cardiovascular: absent: Chest Pain - Respiratory Respiratory: absent: Cough - Gastrointestinal Gastrointestinal: Abdominal Pain, Nausea. absent: Change in Bowel Habits, Constipation, Diarrhea, Vomiting - Genitourinary Genitourinary: absent: Dysuria - Musculoskeletal Musculoskeletal: absent: Back Pain, Numbness, Tingling - Integumentary Integumentary: absent: Rash - Neurological Neurological: Weakness - Psychiatric Psychiatric: Change in Appetite - Endocrine Endocrine: Fatigue Past Patient History - Infectious Disease Hx of Infectious Diseases: None - Past Medical History & Family History Past Medical History?: Yes - Past Social History Smoking Status: Never Smoked - CARDIAC Hx Hypertension: Yes (Gestational HTN) - PULMONARY Hx Respiratory Disorders: No - NEUROLOGICAL Hx Neurological Disorder: No - HEENT Hx HEENT Problems: No - RENAL Hx Chronic Kidney Disease: No - ENDOCRINE/METABOLIC Hx Endocrine Disorders: No - HEMATOLOGICAL/ONCOLOGICAL Hx Human Immunodeficiency Virus (HIV): No - INTEGUMENTARY Hx Dermatological Problems: No - MUSCULOSKELETAL/RHEUMATOLOGICAL Hx Musculoskeletal Disorders: No Hx Falls: No - GASTROINTESTINAL Hx Gall Bladder Disease: Yes - GENITOURINARY/GYNECOLOGICAL Hx Genitourinary Disorders: No - PSYCHIATRIC Hx Depression: No - SURGICAL HISTORY Hx Surgeries: Yes Hx Section: Yes (05/25/17) - ANESTHESIA Hx Anesthesia: Yes Hx Anesthesia Reactions: No Hx Malignant Hyperthermia: No Meds Allergies/Adverse Reactions: Allergies Allergy/AdvReac Type Severity Reaction Status Date / Time No Known Allergies Allergy Verified 12/16/17 16:38 - Medications Medications: Current Medications Piperacillin Sod/Tazobactam (Sod 3.375 gm/ Sodium Chloride) 100 mls @ 100 mls/ hr IVPB Q6 [facility] PRN Reason: Protocol Lactated Ringer's (Lactated Ringer's) 1,000 mls @ 120 mls/hr IV .Q8H20M [facility] Last Admin: 01/19/18 15:55 Dose: 120 mls/hr Morphine Sulfate (Morphine) 1 mg IVP Q4 PRN PRN Reason: Pain, moderate (4-7) Last Admin: 01/19/18 18:36 Dose: 1 mg Morphine Sulfate (Morphine) 2 mg IVP Q4 PRN PRN Reason: Pain, severe (8-10) Ondansetron HCl (Zofran Inj) 4 mg IVP Q6 PRN PRN Reason: Nausea/Vomiting Physical Exam - Constitutional Appears: Non-toxic, No Acute Distress - Head Exam Head Exam: ATRAUMATIC, NORMAL INSPECTION, NORMOCEPHALIC - Eye Exam Eye Exam: EOMI, Normal appearance - ENT Exam ENT Exam: Mucous Membranes Moist, Normal Exam - Neck Exam Neck exam: Positive for: Full Rom, Normal Inspection - Respiratory Exam Respiratory Exam: Clear to Auscultation Bilateral, NORMAL BREATHING PATTERN - Cardiovascular Exam Cardiovascular Exam: REGULAR RHYTHM, +S1, +S2 - GI/Abdominal Exam GI & Abdominal Exam: Normal Bowel Sounds, Soft, Tenderness (Epigastric, RUQ). absent: Distended, Firm - Extremities Exam Extremities exam: Positive for: normal inspection. Negative for: pedal edema - Back Exam Back exam: NORMAL INSPECTION - Neurological Exam Neurological exam: Alert, CN II-XII Intact, Oriented x3 - Psychiatric Exam Psychiatric exam: Normal Affect, Normal Mood - Skin Skin Exam: Dry, Intact, Normal Color, Warm Results - Vital Signs Recent Vital Signs: Last Vital Signs Temp 98 F 01/19/18 17:49 Pulse 78 01/19/18 18:10 Resp 16 01/19/18 18:10 BP 123/76 01/19/18 18:10 Pulse Ox 100 01/19/18 18:10 - Labs Result Diagrams: 01/19/18 12:00 01/19/18 12:00 Labs: Laboratory Results - last 24 hr 01/19/18 01/19/18 01/19/18 12:00 12:00 12:00 WBC 7.5 RBC 5.13 Hgb 14.3 D Hct 42.1 MCV 82.0 MCH 27.8 MCHC 33.9 RDW 14.3 Plt Count 321 MPV 8.9 Neut % (Auto) 73.7 Lymph % (Auto) 20.2 [place] % (Auto) 5.6 Eos % (Auto) 0.2 Baso % (Auto) 0.3 Neut # (Auto) 5.5 Lymph # (Auto) 1.5 [place] # (Auto) 0.4 Eos # (Auto) 0.0 Baso # (Auto) 0.0 Sodium 139 Potassium 4.3 Chloride 101 Carbon Dioxide 25 Anion Gap 17 BUN 10 Creatinine 0.7 Est GFR ( Amer) > 60 Est GFR (Non-Af Amer) > 60 Random Glucose 113 H Calcium 10.3 H Total Bilirubin 2.6 H AST 744 H D ALT 660 H D Alkaline Phosphatase 247 H Total Protein 9.6 H Albumin 5.1 H D Globulin 4.5 H Albumin/Globulin Ratio 1.1 Lipase 220 Urine Color Brandy Urine Clarity Slighty-cloudy Urine pH 6.0 Ur Specific [place] 1.018 Urine Protein 30 Urine Glucose (UA) Neg Urine Ketones Negative Urine Blood Negative Urine Nitrate Negative Urine Bilirubin Negative Urine Urobilinogen 2.0 H Ur Leukocyte Esterase Neg Urine RBC (Auto) 3 Urine Microscopic WBC 1 Ur Squamous Epith Cells 1 Urine Bacteria Rare Assessment & Plan - Assessment and Plan (Free Text) Assessment: 32F w/symptomatic cholelithiasis vs acute cholecystitis Plan: Admit to medical service NPO IVF- LR@120 Abx- zosyn Pain control FU AM coags EKG CXR FU AM labs Plan for OR tomorrow Consent in chart GI/DVT ppx DW Dr. David Cardona, PGY-2 - Date & Time Date: 01/19/18 Time: 18:53 <Steph Hernandez - Last Filed: 01/20/18 10:10> Meds - Medications Medications: Current Medications Lactated Ringer's (Lactated Ringer's) 1,000 mls @ 120 mls/hr IV .Q8H20M [facility] Last Admin: 01/20/18 02:44 Dose: 120 mls/hr Piperacillin Sod/Tazobactam (Sod 3.375 gm/ Sodium Chloride) 100 mls @ 100 mls/ hr IVPB 0200,0800,1400,2000 [facility] PRN Reason: Protocol Last Admin: 01/20/18 08:27 Dose: 100 mls/hr Morphine Sulfate (Morphine) 1 mg IVP Q4 PRN PRN Reason: Pain, moderate (4-7) Last Admin: 01/19/18 18:36 Dose: 1 mg Morphine Sulfate (Morphine) 2 mg IVP Q4 PRN PRN Reason: Pain, severe (8-10) Ondansetron HCl (Zofran Inj) 4 mg IVP Q6 PRN PRN Reason: Nausea/Vomiting Results - Vital Signs Recent Vital Signs: Last Vital Signs Temp 98.5 F 01/20/18 08:05 Pulse 68 01/20/18 08:05 Resp 20 01/20/18 08:05 BP 120/70 01/20/18 08:05 Pulse Ox 100 01/20/18 08:05 - Labs Result Diagrams: 01/20/18 05:45 01/20/18 05:45 Labs: Laboratory Results - last 24 hr 01/19/18 01/19/18 01/19/18 12:00 12:00 12:00 WBC 7.5 RBC 5.13 Hgb 14.3 D Hct 42.1 MCV 82.0 MCH 27.8 MCHC 33.9 RDW 14.3 Plt Count 321 MPV 8.9 Neut % (Auto) 73.7 Lymph % (Auto) 20.2 [place] % (Auto) 5.6 Eos % (Auto) 0.2 Baso % (Auto) 0.3 Neut # (Auto) 5.5 Lymph # (Auto) 1.5 [place] # (Auto) 0.4 Eos # (Auto) 0.0 Baso # (Auto) 0.0 PT INR APTT Sodium 139 Potassium 4.3 Chloride 101 Carbon Dioxide 25 Anion Gap 17 BUN 10 Creatinine 0.7 Est GFR ( Amer) > 60 Est GFR (Non-Af Amer) > 60 Random Glucose 113 H Calcium 10.3 H Total Bilirubin 2.6 H AST 744 H D ALT 660 H D Alkaline Phosphatase 247 H Total Protein 9.6 H Albumin 5.1 H D Globulin 4.5 H Albumin/Globulin Ratio 1.1 Lipase 220 Urine Color Brandy Urine Clarity Slighty-cloudy Urine pH 6.0 Ur Specific [place] 1.018 Urine Protein 30 Urine Glucose (UA) Neg Urine Ketones Negative Urine Blood Negative Urine Nitrate Negative Urine Bilirubin Negative Urine Urobilinogen 2.0 H Ur Leukocyte Esterase Neg Urine RBC (Auto) 3 Urine Microscopic WBC 1 Ur Squamous Epith Cells 1 Urine Bacteria Rare 01/20/18 01/20/18 01/20/18 05:45 05:45 05:45 WBC 4.8 RBC 4.10 Hgb 11.5 L D Hct 34.0 MCV 83.0 MCH 28.0 MCHC 33.7 RDW 14.3 Plt Count 244 MPV Neut % (Auto) Lymph % (Auto) [place] % (Auto) Eos % (Auto) Baso % (Auto) Neut # (Auto) Lymph # (Auto) [place] # (Auto) Eos # (Auto) Baso # (Auto) PT 12.2 INR 1.1 APTT 30.6 Sodium 139 Potassium 3.8 Chloride 107 Carbon Dioxide 25 Anion Gap 11 BUN 7 Creatinine 0.8 Est GFR ( Amer) > 60 Est GFR (Non-Af Amer) > 60 Random Glucose 98 Calcium 8.6 Total Bilirubin 2.9 H AST 326 H D ALT 498 H D Alkaline Phosphatase 229 H Total Protein 6.7 Albumin 3.5 D Globulin 3.2 Albumin/Globulin Ratio 1.1 Lipase Urine Color Urine Clarity Urine pH Ur Specific [place] Urine Protein Urine Glucose (UA) Urine Ketones Urine Blood Urine Nitrate Urine Bilirubin Urine Urobilinogen Ur Leukocyte Esterase Urine RBC (Auto) Urine Microscopic WBC Ur Squamous Epith Cells Urine Bacteria Assessment & Plan - Assessment and Plan (Free Text) Plan: I personally saw and examined the patient with the resident staff and agree with the above assessment and plan. I personally reviewed the available diagnostic images and imaging reports. Patient seen last month for similar symptoms, elevated Tbili and LFT's. MRCP showed clear ductal system and later patient labs normalized, however gallbladder not removed during that admission. She return with recurrent symptomatic cholelithiasis. NPO. IV Abx. Lap jewel with possible IOC tomorrow.
[2018-01-19] MEDS ORDERED: Piperacillin/Tazobact 3.375 GM in Sodium Chloride 0.9% 100 ML IVPB SCH (19:00)
[2018-01-20] MEDS: Lactated Ringer's 1,000 ML IV SCH (02:44)
[2018-01-20] MEDS: Piperacillin/Tazobact 3.375 GM in Sodium Chloride 0.9% 100 ML IVPB SCH ×4 (02:48→22:25)
[2018-01-20 06:38] LABS: HEMOGLOBIN 11.5 g/dL (12.0-16.0); MEAN CORPUSCULAR HGB CONC 33.7 g/dL (33.0-37.0); RBC 4.1 Mil/uL (3.80-5.20); RED CELL DISTRIBUTION WIDTH 14.3 % (11.5-14.5); WHITE BLOOD COUNT 4.8 K/uL (4.8-10.8)
[2018-01-20 06:42] LABS: INR 1.1; PROTHROMBIN TIME 12.2 Seconds (9.8-13.1)
[2018-01-20 06:43] LABS: PARTIAL THROMBOPLASTIN TIME 30.6 Seconds (25.6-37.1)
[2018-01-20 07:06] LABS: ALB/GLOB RATIO 1.1 (1.0-2.1); ALBUMIN 3.5 g/dL (3.5-5.0); ALT/SGPT 498 U/L (9-52); AST/SGOT 326 U/L (14-36); BLOOD UREA NITROGEN 7 mg/dl (7-17); CALCIUM 8.6 mg/dL (8.4-10.2); GFR NON-AFRICAN AMERICAN > 60
--- NOTE | 2018-01-20 08:49 | CP.PCM.PN ---
Subjective - Date & Time of Evaluation Date of Evaluation: 01/20/18 Time of Evaluation: 07:30 - Subjective Subjective: Patient seen and evaluated at bedside in AM. NAD. No acute events overnight. Patient is NPO since midnight yesterday. Scheduled for surgery today. Denies any abdominal pain, nausea, vomiting, diarrhea, vomiting, CP, SOB, headache or dizziness. Objective - Vital Signs/Intake and Output Vital Signs (last 24 hours): Temp Pulse Resp BP Pulse Ox 98.5 F 68 20 120/70 100 01/20/18 08:05 01/20/18 08:05 01/20/18 08:05 01/20/18 08:05 01/20/18 08:05 - Medications Medications: Current Medications Lactated Ringer's (Lactated Ringer's) 1,000 mls @ 120 mls/hr IV .Q8H20M [facility] Last Admin: 01/20/18 02:44 Dose: 120 mls/hr Piperacillin Sod/Tazobactam (Sod 3.375 gm/ Sodium Chloride) 100 mls @ 100 mls/ hr IVPB 0200,0800,1400,2000 [facility] PRN Reason: Protocol Last Admin: 01/20/18 08:27 Dose: 100 mls/hr Morphine Sulfate (Morphine) 1 mg IVP Q4 PRN PRN Reason: Pain, moderate (4-7) Last Admin: 01/19/18 18:36 Dose: 1 mg Morphine Sulfate (Morphine) 2 mg IVP Q4 PRN PRN Reason: Pain, severe (8-10) Ondansetron HCl (Zofran Inj) 4 mg IVP Q6 PRN PRN Reason: Nausea/Vomiting - Labs Labs: 01/20/18 05:45 01/20/18 05:45 PT 12.2 Seconds (9.8-13.1) 01/20/18 05:45 INR 1.1 01/20/18 05:45 APTT 30.6 Seconds (25.6-37.1) 01/20/18 05:45 - Constitutional Appears: Well, Non-toxic, No Acute Distress - Head Exam Head Exam: ATRAUMATIC, NORMAL INSPECTION, NORMOCEPHALIC - Eye Exam Eye Exam: Normal appearance, PERRL - ENT Exam ENT Exam: Mucous Membranes Moist - Neck Exam Neck Exam: Full ROM - Respiratory Exam Respiratory Exam: Clear to Ausculation Bilateral, NORMAL BREATHING PATTERN. absent: Rales, Rhonchi, Wheezes - Cardiovascular Exam Cardiovascular Exam: REGULAR RHYTHM, +S1, +S2, Murmur - GI/Abdominal Exam GI & Abdominal Exam: Tenderness, Normal Bowel Sounds. absent: Distended, Firm, Guarding, Rigid Additional comments: Mild RUQ and epigastric tenderness - Extremities Exam Extremities Exam: absent: Calf Tenderness, Pedal Edema, Tenderness - Back Exam Back Exam: absent: tenderness - Neurological Exam Neurological Exam: Alert, Awake, Oriented x3 - Psychiatric Exam Psychiatric exam: Normal Affect, Normal Mood - Skin Skin Exam: Dry, Intact, Normal Color Assessment and Plan - Assessment and Plan (Free Text) Assessment: 32 year old female with hx of cholelithisasis admitted for acute cholecystitis. Patient afebrile without leukocytosis, + sonographic morgan sign. Scheduled for cholecystectomy today. Plan: Acute cholecystitis - Afebrile, No leukocytosis - GI consult on board: Will follow recs - MRCP done w/cholelithiasis w/GB wall thickening/edema, pericholecystic fluid, small gallstone in cystic duct. Findings consistent with acute cholecystitis. CBD normal caliber, no evidence of choledocholithiasis. No intrahepatic biliary ductal dilatation. Ab U/S cholelithiasis, + sonographic Morgan's sign. - CXR No active disease - C/W empiric Zosyn 3.375 mg IVP QID - NPO since midnight yesterday - LR at 120 ml - Morphine 1,2 and 4 mg IVP for pain control - Patient medically optimized for surgery. - Surgery consult on board: Scheduled for surgery today. - Will follow up after surgery. Transaminitis - Improving - AST 326, ALT 498, ALP 229(Previous 744/660/247) - T shen 2.9(previous 2.6) - Hepatitis B Negative, Hep A ordered. - Will Monitor BMP, Hep A DVT prophylaxis - SCDs Code Status - Full code
--- NOTE | 2018-01-20 10:23 | RAD ---
Date of service: 01/19/2018 PROCEDURE: CHEST RADIOGRAPH, 1 VIEW HISTORY: pre op COMPARISON: None available. FINDINGS: LUNGS: Clear. PLEURA: No pneumothorax or pleural fluid seen. CARDIOVASCULAR: Normal. OSSEOUS STRUCTURES: No significant abnormalities. VISUALIZED UPPER ABDOMEN: Normal. OTHER FINDINGS: None. IMPRESSION: No active disease.
[2018-01-20] MEDS ORDERED: Lactated Ringer's 1,000 ML IV ONE ×4 (14:30→20:00)
--- NOTE | 2018-01-20 14:47 | CP.PCM.CON ---
History of Present Illness - History of Present Illness History of Present Illness: GI consult note for Dr. Walker Consulted for: hyperbilirubinemia, possible choledocholithiasis Patient is a 32F who presented to the ED for 1 day of severe epigastric tenderness, nausea, and vomiting. Patient states that pain is constant in nature , does not radiate anywhere. Patient states that this pain has come and gone multiple times in the past year, but this was severe. Patient denies any urinary syptoms, diarrhea, but reports occasional constipation, no melena or hematochezia. Patient had elevation in her bilirubin upon admission, which increased slightly again today, so GI team was consulted for possible choledocholithiasis. Patient denies any pain, nausea, or vomiting at this time, and states that she is hungry PMH: denies PSH: 8 months ago ALL: NKDA Social: denies ETOH, smoking, or any illicit substances Family history: father: diabetes, Mother: HTN Review of Systems - Review of Systems All systems: reviewed and no additional remarkable complaints except (as per HPI ) Past Patient History - Infectious Disease Hx of Infectious Diseases: None - Past Medical History & Family History Past Medical History?: Yes Past Family History: Reviewed and not pertinent - Past Social History Smoking Status: Never Smoked Alcohol: None Drugs: Denies - CARDIAC Hx Hypertension: Yes (Gestational HTN) - PULMONARY Hx Respiratory Disorders: No - NEUROLOGICAL Hx Neurological Disorder: No - HEENT Hx HEENT Problems: No - RENAL Hx Chronic Kidney Disease: No - ENDOCRINE/METABOLIC Hx Endocrine Disorders: No - HEMATOLOGICAL/ONCOLOGICAL Hx Human Immunodeficiency Virus (HIV): No - INTEGUMENTARY Hx Dermatological Problems: No - MUSCULOSKELETAL/RHEUMATOLOGICAL Hx Musculoskeletal Disorders: No Hx Falls: No - GASTROINTESTINAL Hx Gall Bladder Disease: Yes - GENITOURINARY/GYNECOLOGICAL Hx Genitourinary Disorders: No - PSYCHIATRIC Hx Depression: No - SURGICAL HISTORY Hx Surgeries: Yes Hx Section: Yes (05/25/17) - ANESTHESIA Hx Anesthesia: Yes Hx Anesthesia Reactions: No Hx Malignant Hyperthermia: No Meds Allergies/Adverse Reactions: Allergies Allergy/AdvReac Type Severity Reaction Status Date / Time No Known Allergies Allergy Verified 12/16/17 16:38 - Medications Medications: Current Medications Lactated Ringer's (Lactated Ringer's) 1,000 mls @ 120 mls/hr IV .Q8H20M [facility] Last Admin: 01/20/18 02:44 Dose: 120 mls/hr Piperacillin Sod/Tazobactam (Sod 3.375 gm/ Sodium Chloride) 100 mls @ 100 mls/ hr IVPB 0200,0800,1400,2000 [facility] PRN Reason: Protocol Last Admin: 01/20/18 13:38 Dose: 100 mls/hr Morphine Sulfate (Morphine) 1 mg IVP Q4 PRN PRN Reason: Pain, moderate (4-7) Last Admin: 01/19/18 18:36 Dose: 1 mg Morphine Sulfate (Morphine) 2 mg IVP Q4 PRN PRN Reason: Pain, severe (8-10) Ondansetron HCl (Zofran Inj) 4 mg IVP Q6 PRN PRN Reason: Nausea/Vomiting Physical Exam - Constitutional Appears: Well, Non-toxic, No Acute Distress - Head Exam Head Exam: ATRAUMATIC, NORMOCEPHALIC - Eye Exam Eye Exam: Normal appearance. absent: Conjunctival injection, Scleral icterus - ENT Exam ENT Exam: Mucous Membranes Moist, Normal Oropharynx - Respiratory Exam Respiratory Exam: NORMAL BREATHING PATTERN. absent: Accessory Muscle Use, Respiratory Distress - Cardiovascular Exam Cardiovascular Exam: RRR - GI/Abdominal Exam GI & Abdominal Exam: Soft, Tenderness (mild epigastric tenderness). absent: Distended Additional comments: positive kaur's sign - Extremities Exam Extremities exam: Positive for: pedal pulses present. Negative for: calf tenderness, pedal edema - Neurological Exam Neurological exam: Alert, Oriented x3 - Psychiatric Exam Psychiatric exam: Normal Affect, Normal Mood - Skin Skin Exam: Dry, Intact, Normal Color, Warm Results - Vital Signs Recent Vital Signs: Last Vital Signs Temp 99.1 F 01/20/18 12:30 Pulse 62 01/20/18 12:30 Resp 20 01/20/18 12:30 BP 113/70 01/20/18 12:30 Pulse Ox 99 01/20/18 12:30 - Labs Result Diagrams: 01/20/18 05:45 01/20/18 05:45 Labs: Laboratory Results - last 24 hr 01/20/18 01/20/18 01/20/18 05:45 05:45 05:45 WBC 4.8 RBC 4.10 Hgb 11.5 L D Hct 34.0 MCV 83.0 MCH 28.0 MCHC 33.7 RDW 14.3 Plt Count 244 PT 12.2 INR 1.1 APTT 30.6 Sodium 139 Potassium 3.8 Chloride 107 Carbon Dioxide 25 Anion Gap 11 BUN 7 Creatinine 0.8 Est GFR ( Amer) > 60 Est GFR (Non-Af Amer) > 60 Random Glucose 98 Calcium 8.6 Total Bilirubin 2.9 H AST 326 H D ALT 498 H D Alkaline Phosphatase 229 H Total Protein 6.7 Albumin 3.5 D Globulin 3.2 Albumin/Globulin Ratio 1.1 - Imaging and Cardiology MRI - abdomen Status: Report reviewed by me US - abdomen Status: Report reviewed by me Assessment & Plan - Assessment and Plan (Free Text) Assessment: 32F with acute cholecystitis vs symptomatic cholelithiasis vs choledocholithiasis -abdominal US with CBD normal caliber -MRCP: no sign of choledocholithiasis Plan: F/U surgical recs--patient for OR today Continue NPO for surgery Continue to trend CBC and CMP No GI intervention indicated at this time--suspicion is low for biliary obstruction given MRCP findings Will continue to follow closely Discussed and examined with Dr. Aaron Lincoln, PGY2
[2018-01-20] MEDS ORDERED: Succinylcholine 200 mg/10 ml Inj IV ONE (15:55)
[2018-01-20] MEDS ORDERED: Rocuronium 10 mg/ml (5 ml) ONE (15:55)
[2018-01-20] MEDS ORDERED: Midazolam 2 MG/2 ML VIAL ONE (15:55)
[2018-01-20] MEDS ORDERED: Propofol 10 mg/ml Inj (20 ML) ONE (15:55)
[2018-01-20] MEDS ORDERED: Bupivacaine HCl 0.5% PF (30 ml) Inj ONE (15:57)
[2018-01-20] MEDS ORDERED: Iohexol 240 200 ML ONE (15:58)
[2018-01-20] MEDS: ceFAZolin IV 1 gm in Dextrose 1 GM/50 ML BAG IVPB ONE ×2 (16:40→17:15)
[2018-01-20] MEDS: Glucagon Recombinant 1 mg Inj ONE ×2 (17:14→17:15)
[2018-01-20] MEDS ORDERED: Neostigmine 1:1000 (1 mg/ml) Inj ONE (17:44)
[2018-01-20] MEDS ORDERED: Morphine 1 mg/ml preservative-free Inj(Duramorph) ONE (18:14)
[2018-01-20] MEDS ORDERED: HYDROmorphone 0.5 mg/0.5 ml ISec IVP PRN (18:34)
--- NOTE | 2018-01-20 18:39 | PCM.SURG1 ---
Surgeon's Initial Post Op Note - Surgeon's Notes Surgeon: Dr. Hernandez [employer] Equipment Mechanic: Dr. Rm PGY4, Dr. Taylor PGY3 Type of Anesthesia: General Endo Pre-Operative Diagnosis: symptomatic cholelithaisis Operative Findings: see dictation Post-Operative Diagnosis: same; chronic cholecystitis Operation Performed: Laparoscopic cholecystectomy Specimen/Specimens Removed: gallbladder Estimated Blood Loss: EBL {In ML}: 50 Blood Products Given: N/A Drains Used: No Drains Post-Op Condition: Good Date of Surgery/Procedure: 01/20/18 Time of Surgery/Procedure: 18:38
[2018-01-20] MEDS ORDERED: oxyCODONE 5 mg Immediate Release Tab PO PRN (18:41)
--- NOTE | 2018-01-21 00:42 | CP.PCM.PCO ---
Addendum Addendum: 01/21/18 01:07 Patient seen and examined bedside. Patient s/p lap cholecystectomy yesterday afternoon. Patient tolerating liquid diet. Pain controlled with morphine. Denies nausea, vomiting,fever, chest pain, SOB. Pt doing incentive spirometry Abd: soft, lap incisions C/D/I . CV: RRR. +S1, S2, no M/R/G will follow surgery recommendations -f/u CBC
[2018-01-21] MEDS: oxyCODONE 10 mg Immediate Release Tab PO PRN ×2 (01:23→11:30)
[2018-01-21] MEDS: Piperacillin/Tazobact 3.375 GM in Sodium Chloride 0.9% 100 ML IVPB SCH ×4 (03:50→21:05)
[2018-01-21 06:54] LABS: HEMOGLOBIN 11.6 g/dL (12.0-16.0); MEAN CELL VOLUME 82.5 fl (81.0-99.0); MEAN CORPUSCULAR HEMOGLOBIN 27.8 pg (27.0-31.0); MEAN CORPUSCULAR HGB CONC 33.7 g/dL (33.0-37.0); RBC 4.16 Mil/uL (3.80-5.20); RED CELL DISTRIBUTION WIDTH 14.3 % (11.5-14.5); WHITE BLOOD COUNT 11.5 K/uL (4.8-10.8)
[2018-01-21 07:24] LABS: ALB/GLOB RATIO 1.1 (1.0-2.1); ALBUMIN 3.8 g/dL (3.5-5.0); ALT/SGPT 420 U/L (9-52); AST/SGOT 233 U/L (14-36); BLOOD UREA NITROGEN 7 mg/dl (7-17); CALCIUM 9.1 mg/dL (8.4-10.2); GFR NON-AFRICAN AMERICAN > 60
--- NOTE | 2018-01-21 09:36 | CP.PCM.PN ---
<BrandonNisha - Last Filed: 01/21/18 09:26> Subjective - Date & Time of Evaluation Date of Evaluation: 01/21/18 Time of Evaluation: 09:26 - Subjective Subjective: General Surgery Dr. Hernandez Pt S&E @bedside. NAEO. pt has no complaints. denies F/C, N/V. OOB to toilet. pain well controlled. Objective - Vital Signs/Intake and Output Vital Signs (last 24 hours): Temp Pulse Resp BP Pulse Ox 99.8 F H 62 20 135/79 98 01/21/18 08:20 01/21/18 08:20 01/21/18 08:20 01/21/18 08:20 01/21/18 08:20 - Medications Medications: Current Medications Acetaminophen (Tylenol 325mg Tab) 650 mg PO Q4 PRN PRN Reason: Pain, Mild (1-3) Lactated Ringer's (Lactated Ringer's) 1,000 mls @ 120 mls/hr IV .Q8H20M [facility] Last Admin: 01/20/18 02:44 Dose: 120 mls/hr Piperacillin Sod/Tazobactam (Sod 3.375 gm/ Sodium Chloride) 100 mls @ 100 mls/ hr IVPB 0400,1000,1600,2200 [facility] PRN Reason: Protocol Last Admin: 01/21/18 03:50 Dose: 100 mls/hr Morphine Sulfate (Morphine) 2 mg IVP Q4 PRN PRN Reason: Pain, severe (8-10) Ondansetron HCl (Zofran Inj) 4 mg IVP Q4 PRN PRN Reason: Nausea/Vomiting Oxycodone HCl (Oxycodone Immediate Release Tab) 5 mg PO Q4 PRN PRN Reason: Pain, moderate (4-7) Last Admin: 01/21/18 01:23 Dose: 5 mg - Labs Labs: 01/21/18 06:38 01/21/18 06:38 PT 12.2 Seconds (9.8-13.1) 01/20/18 05:45 INR 1.1 01/20/18 05:45 APTT 30.6 Seconds (25.6-37.1) 01/20/18 05:45 - Constitutional Appears: Non-toxic, No Acute Distress - Head Exam Head Exam: NORMAL INSPECTION - Eye Exam Eye Exam: Normal appearance - ENT Exam ENT Exam: Mucous Membranes Moist - Respiratory Exam Respiratory Exam: NORMAL BREATHING PATTERN. absent: Accessory Muscle Use, Respiratory Distress - Cardiovascular Exam Cardiovascular Exam: REGULAR RHYTHM. absent: Bradycardia, Tachycardia - GI/Abdominal Exam GI & Abdominal Exam: Soft. absent: Distended, Firm, Guarding, Rigid, Tenderness , Rebound Additional comments: incisions c/d/i - Extremities Exam Extremities Exam: Normal Inspection - Neurological Exam Neurological Exam: Alert, Awake, Oriented x3 - Psychiatric Exam Psychiatric exam: Normal Affect, Normal Mood - Skin Skin Exam: Dry, Intact, Normal Color, Warm Assessment and Plan - Assessment and Plan (Free Text) Assessment: 32 y/o F POD#1 s/p lap jewel for symptomatic cholelithaisis and chronic cholecystitis, now w/ worsening hyperbilirubinemia - NPO/IVF - IVF Abx - re-consult GI regarding need for ERCP - AM labs 01/22 - cont pain management - encourage OOB to chair/Amb/IS use Pt seen and discussed w/ Dr. David Taylor DO PGY3 <Steph Hernandez - Last Filed: 01/23/18 10:24> Objective - Vital Signs/Intake and Output Vital Signs (last 24 hours): Temp Pulse Resp BP Pulse Ox 98.2 F 59 L 20 135/87 98 01/23/18 08:20 01/23/18 08:20 01/23/18 08:20 01/23/18 08:20 01/23/18 08:20 - Medications Medications: Current Medications Acetaminophen (Tylenol 325mg Tab) 650 mg PO Q4 PRN PRN Reason: Pain, Mild (1-3) Last Admin: 01/23/18 06:15 Dose: 650 mg Ondansetron HCl (Zofran Inj) 4 mg IVP Q4 PRN PRN Reason: Nausea/Vomiting Oxycodone HCl (Oxycodone Immediate Release Tab) 5 mg PO Q4 PRN PRN Reason: Pain, moderate (4-7) Last Admin: 01/21/18 22:34 Dose: 5 mg - Labs Labs: 01/23/18 05:00 01/23/18 05:00 PT 12.2 Seconds (9.8-13.1) 01/20/18 05:45 INR 1.1 01/20/18 05:45 APTT 30.6 Seconds (25.6-37.1) 01/20/18 05:45 Assessment and Plan - Assessment and Plan (Free Text) Plan: Patient seen and examined with staff agree with above. Hyperbilirubinemia despite pre-op negative MRCP. Could be spasm but does have previous history of stones traveseing biliary tract. NPO. MRCP. GI team aware. IF positive will need ERCP to clear biliary tree
--- NOTE | 2018-01-21 10:59 | CP.PCM.PN ---
<Stacy Fox - Last Filed: 01/21/18 14:32> Subjective - Date & Time of Evaluation Date of Evaluation: 01/21/18 Time of Evaluation: 10:57 - Subjective Subjective: S/p Lap jewel POD1 No acute overnight events. Pt states that she is feeling well this AM. Endorsing minimal abdominal pain, but mostly feels gassy after surgery. Pt encouraged to cont ambulation, remains without fever. Objective - Vital Signs/Intake and Output Vital Signs (last 24 hours): Temp Pulse Resp BP Pulse Ox 99.8 F H 62 20 135/79 98 01/21/18 08:20 01/21/18 08:20 01/21/18 08:20 01/21/18 08:20 01/21/18 08:20 - Medications Medications: Current Medications Acetaminophen (Tylenol 325mg Tab) 650 mg PO Q4 PRN PRN Reason: Pain, Mild (1-3) Lactated Ringer's (Lactated Ringer's) 1,000 mls @ 120 mls/hr IV .Q8H20M [facility] Last Admin: 01/20/18 02:44 Dose: 120 mls/hr Piperacillin Sod/Tazobactam (Sod 3.375 gm/ Sodium Chloride) 100 mls @ 100 mls/ hr IVPB 0400,1000,1600,2200 [facility] PRN Reason: Protocol Last Admin: 01/21/18 09:35 Dose: 100 mls/hr Morphine Sulfate (Morphine) 2 mg IVP Q4 PRN PRN Reason: Pain, severe (8-10) Ondansetron HCl (Zofran Inj) 4 mg IVP Q4 PRN PRN Reason: Nausea/Vomiting Oxycodone HCl (Oxycodone Immediate Release Tab) 5 mg PO Q4 PRN PRN Reason: Pain, moderate (4-7) Last Admin: 01/21/18 01:23 Dose: 5 mg - Labs Labs: 01/21/18 06:38 01/21/18 06:38 PT 12.2 Seconds (9.8-13.1) 01/20/18 05:45 INR 1.1 01/20/18 05:45 APTT 30.6 Seconds (25.6-37.1) 01/20/18 05:45 - Constitutional Appears: No Acute Distress - Eye Exam Eye Exam: Normal appearance - ENT Exam ENT Exam: Mucous Membranes Moist - Respiratory Exam Respiratory Exam: Clear to Ausculation Bilateral, NORMAL BREATHING PATTERN. absent: Wheezes - Cardiovascular Exam Cardiovascular Exam: REGULAR RHYTHM, +S1, +S2 - GI/Abdominal Exam GI & Abdominal Exam: Soft, Normal Bowel Sounds. absent: Tenderness Additional comments: 2 lap jewel scars appreciated, sealed with dermabond - Extremities Exam Extremities Exam: Normal Inspection. absent: Calf Tenderness, Pedal Edema - Back Exam Back Exam: NORMAL INSPECTION. absent: CVA tenderness (L), CVA tenderness (R) - Neurological Exam Neurological Exam: Alert, Awake Assessment and Plan - Assessment and Plan (Free Text) Assessment: Assessment/Plan: 32 year old female with hx of cholelithisasis admitted for acute cholecystitis. S/p Lap jewel POD1 Acute cholecystitis -S/p Lap jewel POD1 -MRCP done w/cholelithiasis w/GB wall thickening/edema, pericholecystic fluid, small gallstone in cystic duct. Findings consistent with acute cholecystitis. CBD normal caliber, no evidence of choledocholithiasis. No intrahepatic biliary ductal dilatation. -C/W empiric Zosyn D2 per surgery -Surgery: advance diet as tolerated -GI: At this point with just Bili increase, ERCP not indicated -Pain management: Morphine and percocet for pain Transaminitis -likely 2/2 to acute jewel -mild improvement, with rise in T bili -AST/ALT 233/420, ALP 236 (Previous 326/498/229) -T shen 3.9 from 2.9 -Hepatitis B Negative, Hep Ab pos with nonreactive Ab IgM neg likely hx of hep A in past -cont to monitor per GI DVT prophylaxis -SCDs -Lovenox SC <Darlyn Meyer - Last Filed: 01/21/18 17:35> Objective - Vital Signs/Intake and Output Vital Signs (last 24 hours): Temp Pulse Resp BP Pulse Ox 98.9 F 67 20 130/89 100 01/21/18 15:58 01/21/18 15:58 01/21/18 15:58 01/21/18 15:58 01/21/18 15:58 - Medications Medications: Current Medications Acetaminophen (Tylenol 325mg Tab) 650 mg PO Q4 PRN PRN Reason: Pain, Mild (1-3) Enoxaparin Sodium (Lovenox) 40 mg SC DAILY ON LICENSE OF [facility] PRN Reason: Protocol Lactated Ringer's (Lactated Ringer's) 1,000 mls @ 120 mls/hr IV .Q8H20M ON LICENSE OF [facility] Last Admin: 01/21/18 12:40 Dose: 120 mls/hr Piperacillin Sod/Tazobactam (Sod 3.375 gm/ Sodium Chloride) 100 mls @ 100 mls/ hr IVPB 0400,1000,1600,2200 ON LICENSE OF [facility] PRN Reason: Protocol Last Admin: 01/21/18 15:34 Dose: 100 mls/hr Morphine Sulfate (Morphine) 2 mg IVP Q4 PRN PRN Reason: Pain, severe (8-10) Ondansetron HCl (Zofran Inj) 4 mg IVP Q4 PRN PRN Reason: Nausea/Vomiting Oxycodone HCl (Oxycodone Immediate Release Tab) 5 mg PO Q4 PRN PRN Reason: Pain, moderate (4-7) Last Admin: 01/21/18 11:30 Dose: 5 mg - Labs Labs: 01/21/18 06:38 01/21/18 06:38 PT 12.2 Seconds (9.8-13.1) 01/20/18 05:45 INR 1.1 01/20/18 05:45 APTT 30.6 Seconds (25.6-37.1) 01/20/18 05:45 Attending/Attestation - Attestation I have personally seen and examined this patient.: Yes I have fully participated in the care of the patient.: Yes I have reviewed all pertinent clinical information, including history, physical exam and plan: Yes Notes (Text): 01/21/18 17:34 Seen, examined, and discussed with residents . Agree with findings and plan as above.
--- NOTE | 2018-01-21 11:08 | CP.PCM.PN ---
Subjective - Date & Time of Evaluation Date of Evaluation: 01/21/18 Time of Evaluation: 10:58 - Subjective Subjective: Patient clinically appears well. Has no complaints. Objective - Vital Signs/Intake and Output Vital Signs (last 24 hours): Temp Pulse Resp BP Pulse Ox 99.8 F H 62 20 135/79 98 01/21/18 08:20 01/21/18 08:20 01/21/18 08:20 01/21/18 08:20 01/21/18 08:20 - Medications Medications: Current Medications Acetaminophen (Tylenol 325mg Tab) 650 mg PO Q4 PRN PRN Reason: Pain, Mild (1-3) Lactated Ringer's (Lactated Ringer's) 1,000 mls @ 120 mls/hr IV .Q8H20M [facility] Last Admin: 01/20/18 02:44 Dose: 120 mls/hr Piperacillin Sod/Tazobactam (Sod 3.375 gm/ Sodium Chloride) 100 mls @ 100 mls/ hr IVPB 0400,1000,1600,2200 [facility] PRN Reason: Protocol Last Admin: 01/21/18 09:35 Dose: 100 mls/hr Morphine Sulfate (Morphine) 2 mg IVP Q4 PRN PRN Reason: Pain, severe (8-10) Ondansetron HCl (Zofran Inj) 4 mg IVP Q4 PRN PRN Reason: Nausea/Vomiting Oxycodone HCl (Oxycodone Immediate Release Tab) 5 mg PO Q4 PRN PRN Reason: Pain, moderate (4-7) Last Admin: 01/21/18 01:23 Dose: 5 mg - Labs Labs: 01/21/18 06:38 01/21/18 06:38 PT 12.2 Seconds (9.8-13.1) 01/20/18 05:45 INR 1.1 01/20/18 05:45 APTT 30.6 Seconds (25.6-37.1) 01/20/18 05:45 - Head Exam Head Exam: ATRAUMATIC - Eye Exam Eye Exam: PERRL - ENT Exam ENT Exam: Normal Exam - Neck Exam Neck Exam: Full ROM - Respiratory Exam Respiratory Exam: NORMAL BREATHING PATTERN - Cardiovascular Exam Cardiovascular Exam: REGULAR RHYTHM, +S1, +S2 - GI/Abdominal Exam GI & Abdominal Exam: Soft, Normal Bowel Sounds Assessment and Plan - Assessment and Plan (Free Text) Assessment: Patient s/p lap jewel. Bili slightly increased today though transaminases are better. Patient appears comfortable. MRCP preop negative for CBD stones. At this point with just Bili increase, ERCP not indicated. Options for management including following LFTs daily and/or MRCP. ERCP if Bili remains high and stone suggested on basis of imaging or patient symptomatology.
[2018-01-21] MEDS: Lactated Ringer's 1,000 ML IV SCH ×2 (12:40→17:55)
[2018-01-21 12:52] LABS: HAV AB (IGM) Nonreactive (Nonreactive)
[2018-01-21] MEDS ORDERED: oxyCODONE 5 mg Immediate Release Tab PO PRN (22:15)
[2018-01-22] MEDS: Lactated Ringer's 1,000 ML IV SCH (03:21)
[2018-01-22] MEDS: Piperacillin/Tazobact 3.375 GM in Sodium Chloride 0.9% 100 ML IVPB SCH ×3 (03:23→15:17)
[2018-01-22 06:35] LABS: HEMOGLOBIN 10.4 g/dL (12.0-16.0); MEAN CELL VOLUME 82.7 fl (81.0-99.0); MEAN CORPUSCULAR HEMOGLOBIN 28.2 pg (27.0-31.0); RBC 3.68 Mil/uL (3.80-5.20); RED CELL DISTRIBUTION WIDTH 14.6 % (11.5-14.5); WHITE BLOOD COUNT 7.3 K/uL (4.8-10.8)
[2018-01-22 07:04] LABS: ALB/GLOB RATIO 1.1 (1.0-2.1); ALBUMIN 3.2 g/dL (3.5-5.0); ALT/SGPT 354 U/L (9-52); AST/SGOT 165 U/L (14-36); BLOOD UREA NITROGEN 5 mg/dl (7-17); CALCIUM 8.7 mg/dL (8.4-10.2); GFR NON-AFRICAN AMERICAN > 60; LIPASE 251 U/L (23-300)
[2018-01-22] MEDS ORDERED: Dextrose 5%/0.45% NS 1,000 ML IV SCH (08:30)
--- NOTE | 2018-01-22 08:45 | CP.PCM.PN ---
<Yaw Rm - Last Filed: 01/22/18 08:42> Subjective - Date & Time of Evaluation Date of Evaluation: 01/22/18 Time of Evaluation: 07:15 - Subjective Subjective: General Surgery Pt seen and examined. No acute events overnight. Minimal pain at incision sites. No new complaints. Ambulated, tolerated diet yesterday. Currently NPO. Denies F/C, N/V. No flatus/BMs. Objective - Vital Signs/Intake and Output Vital Signs (last 24 hours): Temp Pulse Resp BP Pulse Ox 99.0 F 84 18 119/75 96 01/22/18 05:00 01/22/18 05:00 01/22/18 05:00 01/22/18 05:00 01/22/18 05:00 Intake and Output: 01/22/18 01/22/18 06:59 18:59 Intake Total 1560 Balance 1560 - Medications Medications: Current Medications Acetaminophen (Tylenol 325mg Tab) 650 mg PO Q4 PRN PRN Reason: Pain, Mild (1-3) Enoxaparin Sodium (Lovenox) 40 mg SC DAILY [facility] PRN Reason: Protocol Piperacillin Sod/Tazobactam (Sod 3.375 gm/ Sodium Chloride) 100 mls @ 100 mls/ hr IVPB 0400,1000,1600,2200 [facility] PRN Reason: Protocol Last Admin: 01/22/18 03:23 Dose: 100 mls/hr Dextrose/Sodium Chloride (Dextrose 5%/0.45% Ns 1000 Ml) 1,000 mls @ 100 mls/hr IV .Q10H [facility] Stop: 01/23/18 08:25 Ondansetron HCl (Zofran Inj) 4 mg IVP Q4 PRN PRN Reason: Nausea/Vomiting Oxycodone HCl (Oxycodone Immediate Release Tab) 5 mg PO Q4 PRN PRN Reason: Pain, moderate (4-7) Last Admin: 01/21/18 22:34 Dose: 5 mg - Labs Labs: 01/22/18 06:18 01/22/18 06:18 PT 12.2 Seconds (9.8-13.1) 01/20/18 05:45 INR 1.1 01/20/18 05:45 APTT 30.6 Seconds (25.6-37.1) 01/20/18 05:45 - Constitutional Appears: Non-toxic, No Acute Distress - Head Exam Head Exam: ATRAUMATIC, NORMOCEPHALIC - Eye Exam Eye Exam: EOMI. absent: Scleral icterus - Respiratory Exam Respiratory Exam: NORMAL BREATHING PATTERN. absent: Respiratory Distress - GI/Abdominal Exam GI & Abdominal Exam: Soft, Tenderness (mild at incision sites). absent: Distended, Firm, Guarding, Rigid, Rebound Additional comments: incisions C/D/I, dermabond in place - Neurological Exam Neurological Exam: Alert, Awake, Oriented x3 - Skin Skin Exam: Dry, Warm Assessment and Plan - Assessment and Plan (Free Text) Assessment: 32F POD#2 s/p lap jewel for chronic cholecystitis, now with hyperbilirubinemia with slight down trend. Plan: - NPO/IVF - IVF Abx - MRCP today - AM labs - cont pain management PRN - encourage Amb/IS use D/W Dr. David Rm PGY4 <Steph Hernandez - Last Filed: 01/23/18 10:28> Objective - Vital Signs/Intake and Output Vital Signs (last 24 hours): Temp Pulse Resp BP Pulse Ox 98.2 F 59 L 20 135/87 98 01/23/18 08:20 01/23/18 08:20 01/23/18 08:20 01/23/18 08:20 01/23/18 08:20 - Medications Medications: Current Medications Acetaminophen (Tylenol 325mg Tab) 650 mg PO Q4 PRN PRN Reason: Pain, Mild (1-3) Last Admin: 01/23/18 06:15 Dose: 650 mg Ondansetron HCl (Zofran Inj) 4 mg IVP Q4 PRN PRN Reason: Nausea/Vomiting Oxycodone HCl (Oxycodone Immediate Release Tab) 5 mg PO Q4 PRN PRN Reason: Pain, moderate (4-7) Last Admin: 01/21/18 22:34 Dose: 5 mg - Labs Labs: 01/23/18 05:00 01/23/18 05:00 PT 12.2 Seconds (9.8-13.1) 01/20/18 05:45 INR 1.1 01/20/18 05:45 APTT 30.6 Seconds (25.6-37.1) 01/20/18 05:45 Assessment and Plan - Assessment and Plan (Free Text) Plan: Seen and examined with staff. MRCP reviewed. No obstruction. Hyperbilirubinemia - Likely spasm and inflammation with downtrending labs. abd soft. No complaints. Advance diet.
[2018-01-22] MEDS ORDERED: Enoxaparin 40 mg Syringe SC SCH ×2 (09:00)
[2018-01-22 09:04] VITALS: RESP 20
[2018-01-22] MEDS ORDERED: Gadodiamide 287 MG/ML VIAL (15ML) IV ONE (10:17)
[2018-01-22] MEDS ORDERED: Sodium Chloride 0.9% 50 ML IV ONE (10:17)
--- NOTE | 2018-01-22 10:29 | CP.PCM.PN ---
Subjective - Date & Time of Evaluation Date of Evaluation: 01/22/18 Time of Evaluation: 09:10 - Subjective Subjective: Patient seen and examined this AM.No adverse events overnight. Patient denies any nausea, vomiting, reports pain appropriate to recent surgery and passing flatus. Objective - Vital Signs/Intake and Output Vital Signs (last 24 hours): Temp Pulse Resp BP Pulse Ox 99.1 F 72 20 131/84 99 01/22/18 08:15 01/22/18 08:15 01/22/18 08:15 01/22/18 08:15 01/22/18 08:15 Intake and Output: 01/22/18 01/22/18 06:59 18:59 Intake Total 1560 Balance 1560 - Medications Medications: Current Medications Acetaminophen (Tylenol 325mg Tab) 650 mg PO Q4 PRN PRN Reason: Pain, Mild (1-3) Piperacillin Sod/Tazobactam (Sod 3.375 gm/ Sodium Chloride) 100 mls @ 100 mls/ hr IVPB 0400,1000,1600,2200 [facility] PRN Reason: Protocol Last Admin: 01/22/18 09:47 Dose: 100 mls/hr Dextrose/Sodium Chloride (Dextrose 5%/0.45% Ns 1000 Ml) 1,000 mls @ 100 mls/hr IV .Q10H [facility] Stop: 01/23/18 08:25 Ondansetron HCl (Zofran Inj) 4 mg IVP Q4 PRN PRN Reason: Nausea/Vomiting Oxycodone HCl (Oxycodone Immediate Release Tab) 5 mg PO Q4 PRN PRN Reason: Pain, moderate (4-7) Last Admin: 01/21/18 22:34 Dose: 5 mg - Labs Labs: 01/22/18 06:18 01/22/18 06:18 PT 12.2 Seconds (9.8-13.1) 01/20/18 05:45 INR 1.1 01/20/18 05:45 APTT 30.6 Seconds (25.6-37.1) 01/20/18 05:45 - Constitutional Appears: Well, Non-toxic, No Acute Distress - Head Exam Head Exam: ATRAUMATIC, NORMOCEPHALIC - Eye Exam Eye Exam: Normal appearance. absent: Conjunctival injection, Scleral icterus - ENT Exam ENT Exam: Mucous Membranes Moist, Normal Oropharynx - Respiratory Exam Respiratory Exam: NORMAL BREATHING PATTERN. absent: Accessory Muscle Use, Respiratory Distress - GI/Abdominal Exam GI & Abdominal Exam: Soft, Tenderness (periincisional and RUQ). absent: Distended Additional comments: surgical incisions well approximated with dermabond, no erythema or drainage - Extremities Exam Extremities Exam: Tenderness. absent: Calf Tenderness, Pedal Edema - Neurological Exam Neurological Exam: Alert, Awake, Oriented x3 - Psychiatric Exam Psychiatric exam: Normal Affect, Normal Mood - Skin Skin Exam: Dry, Normal Color, Warm Assessment and Plan - Assessment and Plan (Free Text) Assessment: 32F with persistent hyperbilirubinemia and cholecystitis POD#1 s/p laparoscopic cholecystectomy T bili 3.4 down from 3.9 yesterday MRCP pre-op with low suspicion of choledocholithiasis Plan: F/U MRCP Continue to f/u surgical recommendations Continue to trend CBC and CMP PRN pain and nausea mediation Further GI recommendations pending MRCP results Discussed and examined with Dr. Aaron Lincoln, PGY2
--- NOTE | 2018-01-22 10:53 | CP.PCM.PN ---
<Stacy Fox - Last Filed: 01/22/18 10:54> Subjective - Date & Time of Evaluation Date of Evaluation: 01/22/18 Time of Evaluation: 10:51 - Subjective Subjective: S/p Lap jewel POD2 No acute overnight events. Pt is currently NPO for MRCP later today. Endorsing minimal abdominal pain but well controlled with pain meds. Denies n/v , chest pain, dyspnea, remains without fever. Objective - Vital Signs/Intake and Output Vital Signs (last 24 hours): Temp Pulse Resp BP Pulse Ox 99.1 F 72 20 131/84 99 01/22/18 08:15 01/22/18 08:15 01/22/18 08:15 01/22/18 08:15 01/22/18 08:15 Intake and Output: 01/22/18 01/22/18 06:59 18:59 Intake Total 1560 Balance 1560 - Medications Medications: Current Medications Acetaminophen (Tylenol 325mg Tab) 650 mg PO Q4 PRN PRN Reason: Pain, Mild (1-3) Piperacillin Sod/Tazobactam (Sod 3.375 gm/ Sodium Chloride) 100 mls @ 100 mls/ hr IVPB 0400,1000,1600,2200 [facility] PRN Reason: Protocol Last Admin: 01/22/18 09:47 Dose: 100 mls/hr Dextrose/Sodium Chloride (Dextrose 5%/0.45% Ns 1000 Ml) 1,000 mls @ 100 mls/hr IV .Q10H [facility] Stop: 01/23/18 08:25 Ondansetron HCl (Zofran Inj) 4 mg IVP Q4 PRN PRN Reason: Nausea/Vomiting Oxycodone HCl (Oxycodone Immediate Release Tab) 5 mg PO Q4 PRN PRN Reason: Pain, moderate (4-7) Last Admin: 01/21/18 22:34 Dose: 5 mg - Labs Labs: 01/22/18 06:18 01/22/18 06:18 PT 12.2 Seconds (9.8-13.1) 01/20/18 05:45 INR 1.1 01/20/18 05:45 APTT 30.6 Seconds (25.6-37.1) 01/20/18 05:45 - Constitutional Appears: No Acute Distress - Eye Exam Eye Exam: Normal appearance. absent: Scleral icterus - Respiratory Exam Respiratory Exam: Clear to Ausculation Bilateral, NORMAL BREATHING PATTERN. absent: Wheezes - Cardiovascular Exam Cardiovascular Exam: REGULAR RHYTHM, +S1, +S2 - GI/Abdominal Exam GI & Abdominal Exam: Distended (obese ), Soft, Tenderness (RUQ, dermabond noted ), Hyperactive Bowel Sounds. absent: Guarding - Extremities Exam Extremities Exam: Normal Inspection - Neurological Exam Neurological Exam: Alert, Awake Assessment and Plan - Assessment and Plan (Free Text) Assessment: Assessment/Plan: 32 year old female with hx of cholelithisasis admitted for acute cholecystitis. S/p Lap jewel POD2 Acute cholecystitis -S/p Lap jewel POD2 -MRCP done w/cholelithiasis w/GB wall thickening/edema, pericholecystic fluid, small gallstone in cystic duct. Findings consistent with acute cholecystitis. CBD normal caliber, no evidence of choledocholithiasis. No intrahepatic biliary ductal dilatation. -C/W empiric Zosyn D3 per surgery -leukocytosis resolved today -Surgery: NPO for MRCP today -GI: T bili improving, MRCP today -Pain management: percocet for pain Transaminitis -likely 2/2 to acute jewel -mild improvement, T bili down -Hepatitis B Negative, Hep Ab pos with nonreactive Ab IgM neg likely hx of hep A in past -MRCP today, follow up DVT prophylaxis -SCDs -Lovenox SC <Darlyn Meyer - Last Filed: 01/22/18 18:13> Objective - Vital Signs/Intake and Output Vital Signs (last 24 hours): Temp Pulse Resp BP Pulse Ox 99.1 F 61 20 140/93 H 98 01/22/18 16:30 01/22/18 16:30 01/22/18 16:30 01/22/18 12:20 01/22/18 16:30 Intake and Output: 01/22/18 01/22/18 06:59 18:59 Intake Total 3530 Balance 3530 - Medications Medications: Current Medications Acetaminophen (Tylenol 325mg Tab) 650 mg PO Q4 PRN PRN Reason: Pain, Mild (1-3) Last Admin: 01/22/18 15:21 Dose: 650 mg Piperacillin Sod/Tazobactam (Sod 3.375 gm/ Sodium Chloride) 100 mls @ 100 mls/ hr IVPB 0400,1000,1600,2200 [facility] PRN Reason: Protocol Last Admin: 01/22/18 15:17 Dose: 100 mls/hr Dextrose/Sodium Chloride (Dextrose 5%/0.45% Ns 1000 Ml) 1,000 mls @ 100 mls/hr IV .Q10H [facility] Stop: 01/23/18 08:25 Last Admin: 01/22/18 13:56 Dose: 100 mls/hr Ondansetron HCl (Zofran Inj) 4 mg IVP Q4 PRN PRN Reason: Nausea/Vomiting Oxycodone HCl (Oxycodone Immediate Release Tab) 5 mg PO Q4 PRN PRN Reason: Pain, moderate (4-7) Last Admin: 01/21/18 22:34 Dose: 5 mg - Labs Labs: 01/22/18 06:18 01/22/18 06:18 PT 12.2 Seconds (9.8-13.1) 01/20/18 05:45 INR 1.1 01/20/18 05:45 APTT 30.6 Seconds (25.6-37.1) 01/20/18 05:45 Attending/Attestation - Attestation I have personally seen and examined this patient.: Yes I have fully participated in the care of the patient.: Yes I have reviewed all pertinent clinical information, including history, physical exam and plan: Yes Notes (Text): 01/22/18 18:13 Seen, examined, and discussed with residents Drs. Romero and Ruddy. Agree with findings and plan as above.
--- NOTE | 2018-01-22 13:36 | MRI ---
MRI abdomen without/with IV contrast MRCP Indication: Choledocholithiasis Technique: Multiplanar, multi sequence magnetic resonance images of the abdomen were obtained without and with the administration of intravenous gadolinium using a multi phase abdomen protocol. Rotating maximum intensity projection images of the biliary system were generated. A total of 1164 images submitted for review Comparison: MRCP performed 01/19/18, limited abdominal ultrasound performed 01/19/18 Findings: The liver appears unremarkable. Mild gallbladder wall thickening and small pericholecystic fluid. Cholelithiasis. There is no intrahepatic biliary ductal dilatation. The common bile duct appears within normal limits in caliber and tapers distally. The pancreatic duct appears within normal limits of caliber. Probable small gallstone within the cystic duct. No filling defects are seen in the common bile duct or pancreatic duct. The spleen, pancreas, and adrenal glands appear unremarkable. The kidneys enhance symmetrically. No hydronephrosis or obstructing calculus identified. No bulky abdominal adenopathy appreciated. Limited views of the inferior thorax: Small bilateral pleural effusions and dependent consolidations. Impression: Cholelithiasis. The common bile duct does not appear dilated. Probable small gallstone within the cystic duct. No evidence of choledocholithiasis. Small pericholecystic fluid. Mild gallbladder wall thickening. Correlate clinically for acute cholecystitis. Small bilateral pleural effusions and dependent consolidations.
[2018-01-22 16:34] VITALS: O2SAT 98
[2018-01-23 06:39] LABS: HEMOGLOBIN 11.3 g/dL (12.0-16.0); MEAN CELL VOLUME 82.4 fl (81.0-99.0); MEAN CORPUSCULAR HEMOGLOBIN 28.3 pg (27.0-31.0); MEAN CORPUSCULAR HGB CONC 34.3 g/dL (33.0-37.0); RBC 4.01 Mil/uL (3.80-5.20); RED CELL DISTRIBUTION WIDTH 14.6 % (11.5-14.5); WHITE BLOOD COUNT 7.7 K/uL (4.8-10.8)
[2018-01-23 07:05] LABS: ALB/GLOB RATIO 1.2 (1.0-2.1); ALBUMIN 3.9 g/dL (3.5-5.0); ALT/SGPT 278 U/L (9-52); AST/SGOT 75 U/L (14-36); BLOOD UREA NITROGEN 5 mg/dl (7-17); CALCIUM 9.4 mg/dL (8.4-10.2); GFR NON-AFRICAN AMERICAN > 60
[2018-01-23 09:16] VITALS: BP 135/87; PULSE 59; TEMP 98.2
--- NOTE | 2018-01-23 09:29 | CP.PCM.PN ---
<Teodoro Roldan - Last Filed: 01/23/18 09:33> Subjective - Date & Time of Evaluation Date of Evaluation: 01/23/18 Time of Evaluation: 09:28 - Subjective Subjective: Surgery: Dr. Hernandez Pt seen and examined. No acute events overnight. Pain controlled. Tolerating diet. No N/V. Ambulating without difficulty. Objective - Vital Signs/Intake and Output Vital Signs (last 24 hours): Temp Pulse Resp BP Pulse Ox 98.2 F 59 L 20 135/87 98 01/23/18 08:20 01/23/18 08:20 01/23/18 08:20 01/23/18 08:20 01/23/18 08:20 - Medications Medications: Current Medications Acetaminophen (Tylenol 325mg Tab) 650 mg PO Q4 PRN PRN Reason: Pain, Mild (1-3) Last Admin: 01/23/18 06:15 Dose: 650 mg Ondansetron HCl (Zofran Inj) 4 mg IVP Q4 PRN PRN Reason: Nausea/Vomiting Oxycodone HCl (Oxycodone Immediate Release Tab) 5 mg PO Q4 PRN PRN Reason: Pain, moderate (4-7) Last Admin: 01/21/18 22:34 Dose: 5 mg - Labs Labs: 01/23/18 05:00 01/23/18 05:00 PT 12.2 Seconds (9.8-13.1) 01/20/18 05:45 INR 1.1 01/20/18 05:45 APTT 30.6 Seconds (25.6-37.1) 01/20/18 05:45 - Constitutional Appears: Non-toxic, No Acute Distress - Head Exam Head Exam: ATRAUMATIC, NORMOCEPHALIC - Eye Exam Eye Exam: EOMI - ENT Exam ENT Exam: Mucous Membranes Moist - Neck Exam Neck Exam: Full ROM - Respiratory Exam Respiratory Exam: NORMAL BREATHING PATTERN. absent: Accessory Muscle Use, Respiratory Distress - GI/Abdominal Exam GI & Abdominal Exam: Soft, Tenderness (samara-incisional ). absent: Distended, Firm, Guarding, Rigid, Rebound - Extremities Exam Extremities Exam: absent: Calf Tenderness, Pedal Edema - Neurological Exam Neurological Exam: Alert, Awake, Oriented x3 Assessment and Plan - Assessment and Plan (Free Text) Assessment: 32F POD#3 s/p lap jewel for chronic cholecystitis, now with hyperbilirubinemia, trending down -Will start Low fat diet, if diet tolerated, pt clear for D/C from surgical standpoint -Low fat diet for 6 weeks -pain meds as instructed -Ibuprofen 600mg # 12 1 Tab PO Q6H [facility] -Ultram 50mg #28 1 Tab PO Q6H PRN -Colace 50mg #30 1 Tab PO daily -f/u with Dr. Hernandez in 2-4 weeks -d/w attending Zemaitis PGY4 <Steph Hernandez - Last Filed: 01/23/18 11:07> Objective - Vital Signs/Intake and Output Vital Signs (last 24 hours): Temp Pulse Resp BP Pulse Ox 98.2 F 59 L 20 135/87 98 01/23/18 08:20 01/23/18 08:20 01/23/18 08:20 01/23/18 08:20 01/23/18 08:20 - Medications Medications: Current Medications Acetaminophen (Tylenol 325mg Tab) 650 mg PO Q4 PRN PRN Reason: Pain, Mild (1-3) Last Admin: 01/23/18 06:15 Dose: 650 mg Ondansetron HCl (Zofran Inj) 4 mg IVP Q4 PRN PRN Reason: Nausea/Vomiting Oxycodone HCl (Oxycodone Immediate Release Tab) 5 mg PO Q4 PRN PRN Reason: Pain, moderate (4-7) Last Admin: 01/21/18 22:34 Dose: 5 mg - Labs Labs: 01/23/18 05:00 01/23/18 05:00 PT 12.2 Seconds (9.8-13.1) 01/20/18 05:45 INR 1.1 01/20/18 05:45 APTT 30.6 Seconds (25.6-37.1) 01/20/18 05:45 Assessment and Plan - Assessment and Plan (Free Text) Plan: Patient seen and examined independent of resident staff. Agree with above. Adv diet. Home today. f/u 2-4 weeks. Patient to call office to schedule appointment.
--- NOTE | 2018-01-23 10:27 | CP.PCM.DIS ---
<Sparkle No - Last Filed: 01/23/18 18:46> Provider - Provider Date of Admission: 01/19/18 13:44 Attending physician: Christiane Vanegas MD Consults: Surgery : Dr. Hernandez GI : Dr. Walker Time Spent in preparation of Discharge (in minutes): 20 Hospital Course - Lab Results Lab Results: Most Recent Lab Values WBC 7.7 K/uL (4.8-10.8) 01/23/18 05:00 RBC 4.01 Mil/uL (3.80-5.20) 01/23/18 05:00 Hgb 11.3 g/dL (12.0-16.0) L 01/23/18 05:00 Hct 33.1 % (34.0-47.0) L 01/23/18 05:00 MCV 82.4 fl (81.0-99.0) 01/23/18 05:00 MCH 28.3 pg (27.0-31.0) 01/23/18 05:00 MCHC 34.3 g/dL (33.0-37.0) 01/23/18 05:00 RDW 14.6 % (11.5-14.5) H 01/23/18 05:00 Plt Count 263 K/uL (130-400) 01/23/18 05:00 MPV 8.9 fl (7.2-11.7) 01/19/18 12:00 Neut % (Auto) 73.7 % (50.0-75.0) 01/19/18 12:00 Lymph % (Auto) 20.2 % (20.0-40.0) 01/19/18 12:00 [place] % (Auto) 5.6 % (0.0-10.0) 01/19/18 12:00 Eos % (Auto) 0.2 % (0.0-4.0) 01/19/18 12:00 Baso % (Auto) 0.3 % (0.0-2.0) 01/19/18 12:00 Neut # (Auto) 5.5 K/uL (1.8-7.0) 01/19/18 12:00 Lymph # (Auto) 1.5 K/uL (1.0-4.3) 01/19/18 12:00 [place] # (Auto) 0.4 K/uL (0.0-0.8) 01/19/18 12:00 Eos # (Auto) 0.0 K/uL (0.0-0.7) 01/19/18 12:00 Baso # (Auto) 0.0 K/uL (0.0-0.2) 01/19/18 12:00 PT 12.2 Seconds (9.8-13.1) 01/20/18 05:45 INR 1.1 01/20/18 05:45 APTT 30.6 Seconds (25.6-37.1) 01/20/18 05:45 Sodium 139 mmol/l (132-148) 01/23/18 05:00 Potassium 4.2 MMOL/L (3.6-5.0) 01/23/18 05:00 Chloride 104 mmol/L (98-107) 01/23/18 05:00 Carbon Dioxide 29 mmol/L (22-30) 01/23/18 05:00 Anion Gap 10 (10-20) 01/23/18 05:00 BUN 5 mg/dl (7-17) L 01/23/18 05:00 Creatinine 0.7 mg/dl (0.7-1.2) 01/23/18 05:00 Est GFR ( Amer) > 60 01/23/18 05:00 Est GFR (Non-Af Amer) > 60 01/23/18 05:00 POC Glucose (mg/dL) 115 mg/dL (65-110) H 01/20/18 18:35 Random Glucose 83 mg/dL (65-105) 01/23/18 05:00 Calcium 9.4 mg/dL (8.4-10.2) 01/23/18 05:00 Total Bilirubin 1.4 mg/dl (0.2-1.3) H 01/23/18 05:00 AST 75 U/L (14-36) H D 01/23/18 05:00 ALT 278 U/L (9-52) H D 01/23/18 05:00 Alkaline Phosphatase 222 U/L (38-126) H 01/23/18 05:00 Total Protein 7.0 G/DL (6.3-8.2) 01/23/18 05:00 Albumin 3.9 g/dL (3.5-5.0) 01/23/18 05:00 Globulin 3.2 gm/dL (2.2-3.9) 01/23/18 05:00 Albumin/Globulin Ratio 1.2 (1.0-2.1) 01/23/18 05:00 Lipase 251 U/L (23-300) 01/22/18 06:18 Urine Color Brandy (YELLOW) 01/19/18 12:00 Urine Clarity Slighty-cloudy (Clear) 01/19/18 12:00 Urine pH 6.0 (5.0-8.0) 01/19/18 12:00 Ur Specific [place] 1.018 (1.003-1.030) 01/19/18 12:00 Urine Protein 30 mg/dL (NEGATIVE) 01/19/18 12:00 Urine Glucose (UA) Neg mg/dL (Normal) 01/19/18 12:00 Urine Ketones Negative mg/dL (NEGATIVE) 01/19/18 12:00 Urine Blood Negative (NEGATIVE) 01/19/18 12:00 Urine Nitrate Negative (NEGATIVE) 01/19/18 12:00 Urine Bilirubin Negative (NEGATIVE) 01/19/18 12:00 Urine Urobilinogen 2.0 mg/dL (0.2-1.0) H 01/19/18 12:00 Ur Leukocyte Esterase Neg Ray/uL (Negative) 01/19/18 12:00 Urine RBC (Auto) 3 /hpf (0-3) 01/19/18 12:00 Urine Microscopic WBC 1 /hpf (0-5) 01/19/18 12:00 Ur Squamous Epith Cells 1 /hpf (0-5) 01/19/18 12:00 Urine Bacteria Rare (<OCC) 01/19/18 12:00 Hepatitis A IgM Ab Nonreactive (Nonreactive) 01/20/18 15:30 Hepatitis A Ab Total Reactive (Nonreactive) H 01/20/18 15:30 - Hospital Course Hospital Course: 32 year old female with hx of cholelithiaisis admitted for acute cholecystitis. S/p Laparoscopic cholecystectomy. Patient afebrile without leukocytosis, positive sonographic Morgan sign. LFTs and total Bili trending down. Patient is tolerating PO well. Patient will f/u with PMD in 1 week, and with surgery Dr. Hernandez in 2-4 weeks as outpatient. - Date & Time of H&P Date of H&P: 01/19/18 Time of H&P: 14:35 Discharge Exam - Head Exam Head Exam: ATRAUMATIC, NORMOCEPHALIC - Additional Findings Additional findings: Constitutional Appears: No Acute Distress - Eye Exam Eye Exam: Normal appearance. absent: Scleral icterus - Respiratory Exam Respiratory Exam: Clear to Ausculation Bilateral, NORMAL BREATHING PATTERN. absent: Wheezes - Cardiovascular Exam Cardiovascular Exam: REGULAR RHYTHM, +S1, +S2 - GI/Abdominal Exam GI & Abdominal Exam: Distended (obese ), Soft, no tenderness to palpation, no rigidity or guarding noted - Extremities Exam Extremities Exam: Normal Inspection - Neurological Exam Neurological Exam: Alert, Awake Discharge Plan - Discharge Medications Prescriptions: Acetaminophen [Tylenol 325mg tab] 650 mg PO Q4 PRN #30 tab PRN Reason: Pain, Mild (1-3) - Follow Up Plan Condition: STABLE Disposition: HOME/ ROUTINE Instructions: How to Wash Your Hands Properly, How to Prevent Surgical Site Infections, Cholecystectomy, Laparoscopic Surgery Additional Instructions: follow up in outpatient clinic with Dr. Steph Hernandez in 2 weeks [facility] [phone] surgical clinic [facility] [phone] regular diet no heavy lifting more than 10 pounds may shower, no baths, pools or oceans tylenol 2 tablets for pain every 4 hours contact MD if fever, drainage from surgical puncture sites , distended abdomen , pain not relieved by medication , vomiting or for any other concerns Referrals: [facility] [Provider Group] <Darlyn Meyer - Last Filed: 01/24/18 05:16> Provider - Provider Date of Admission: 01/19/18 13:44 Attending physician: Christiane Vanegas MD Hospital Course - Lab Results Lab Results: Most Recent Lab Values WBC 7.7 K/uL (4.8-10.8) 01/23/18 05:00 RBC 4.01 Mil/uL (3.80-5.20) 01/23/18 05:00 Hgb 11.3 g/dL (12.0-16.0) L 01/23/18 05:00 Hct 33.1 % (34.0-47.0) L 01/23/18 05:00 MCV 82.4 fl (81.0-99.0) 01/23/18 05:00 MCH 28.3 pg (27.0-31.0) 01/23/18 05:00 MCHC 34.3 g/dL (33.0-37.0) 01/23/18 05:00 RDW 14.6 % (11.5-14.5) H 01/23/18 05:00 Plt Count 263 K/uL (130-400) 01/23/18 05:00 MPV 8.9 fl (7.2-11.7) 01/19/18 12:00 Neut % (Auto) 73.7 % (50.0-75.0) 01/19/18 12:00 Lymph % (Auto) 20.2 % (20.0-40.0) 01/19/18 12:00 [place] % (Auto) 5.6 % (0.0-10.0) 01/19/18 12:00 Eos % (Auto) 0.2 % (0.0-4.0) 01/19/18 12:00 Baso % (Auto) 0.3 % (0.0-2.0) 01/19/18 12:00 Neut # (Auto) 5.5 K/uL (1.8-7.0) 01/19/18 12:00 Lymph # (Auto) 1.5 K/uL (1.0-4.3) 01/19/18 12:00 [place] # (Auto) 0.4 K/uL (0.0-0.8) 01/19/18 12:00 Eos # (Auto) 0.0 K/uL (0.0-0.7) 01/19/18 12:00 Baso # (Auto) 0.0 K/uL (0.0-0.2) 01/19/18 12:00 PT 12.2 Seconds (9.8-13.1) 01/20/18 05:45 INR 1.1 01/20/18 05:45 APTT 30.6 Seconds (25.6-37.1) 01/20/18 05:45 Sodium 139 mmol/l (132-148) 01/23/18 05:00 Potassium 4.2 MMOL/L (3.6-5.0) 01/23/18 05:00 Chloride 104 mmol/L (98-107) 01/23/18 05:00 Carbon Dioxide 29 mmol/L (22-30) 01/23/18 05:00 Anion Gap 10 (10-20) 01/23/18 05:00 BUN 5 mg/dl (7-17) L 01/23/18 05:00 Creatinine 0.7 mg/dl (0.7-1.2) 01/23/18 05:00 Est GFR ( Amer) > 60 01/23/18 05:00 Est GFR (Non-Af Amer) > 60 01/23/18 05:00 POC Glucose (mg/dL) 115 mg/dL (65-110) H 01/20/18 18:35 Random Glucose 83 mg/dL (65-105) 01/23/18 05:00 Calcium 9.4 mg/dL (8.4-10.2) 01/23/18 05:00 Total Bilirubin 1.4 mg/dl (0.2-1.3) H 01/23/18 05:00 AST 75 U/L (14-36) H D 01/23/18 05:00 ALT 278 U/L (9-52) H D 01/23/18 05:00 Alkaline Phosphatase 222 U/L (38-126) H 01/23/18 05:00 Total Protein 7.0 G/DL (6.3-8.2) 01/23/18 05:00 Albumin 3.9 g/dL (3.5-5.0) 01/23/18 05:00 Globulin 3.2 gm/dL (2.2-3.9) 01/23/18 05:00 Albumin/Globulin Ratio 1.2 (1.0-2.1) 01/23/18 05:00 Lipase 251 U/L (23-300) 01/22/18 06:18 Urine Color Brandy (YELLOW) 01/19/18 12:00 Urine Clarity Slighty-cloudy (Clear) 01/19/18 12:00 Urine pH 6.0 (5.0-8.0) 01/19/18 12:00 Ur Specific [place] 1.018 (1.003-1.030) 01/19/18 12:00 Urine Protein 30 mg/dL (NEGATIVE) 01/19/18 12:00 Urine Glucose (UA) Neg mg/dL (Normal) 01/19/18 12:00 Urine Ketones Negative mg/dL (NEGATIVE) 01/19/18 12:00 Urine Blood Negative (NEGATIVE) 01/19/18 12:00 Urine Nitrate Negative (NEGATIVE) 01/19/18 12:00 Urine Bilirubin Negative (NEGATIVE) 01/19/18 12:00 Urine Urobilinogen 2.0 mg/dL (0.2-1.0) H 01/19/18 12:00 Ur Leukocyte Esterase Neg Ray/uL (Negative) 01/19/18 12:00 Urine RBC (Auto) 3 /hpf (0-3) 01/19/18 12:00 Urine Microscopic WBC 1 /hpf (0-5) 01/19/18 12:00 Ur Squamous Epith Cells 1 /hpf (0-5) 01/19/18 12:00 Urine Bacteria Rare (<OCC) 01/19/18 12:00 Hepatitis A IgM Ab Nonreactive (Nonreactive) 01/20/18 15:30 Hepatitis A Ab Total Reactive (Nonreactive) H 01/20/18 15:30 Attending/Attestation - Attestation I have personally seen and examined this patient.: Yes I have fully participated in the care of the patient.: Yes I have reviewed all pertinent clinical information, including history, physical exam and plan: Yes Notes (Text): 01/24/18 05:14 Seen, examined, discussed with resident Dr. No. Agree with findings and plan as above. Patient had repeat MRCP due to transiently elevated TBILI however negative and tbili trended down nicely. Patient without pain, feeling well. HD stable nad. Stable for discharge home with follow p PCP and Surgery.
--- NOTE | 2018-01-26 16:32 | PCM.OP ---
Operative Report - Operative Report Date of Surgery/Procedure: 01/20/18 Time of Surgery/Procedure: 16:00 Surgeon: Steph Hernandez MD Food Product Inspector: Nisha Taylor DO (PGY3 resident) Anesthesia/Sedation: General endotracheal; 1% lidocaine + 0.25% Marcaine mix local anesthesia Pre-Operative Diagnosis: Recurrent Acute cholecytitis. History of choledocholithiasis. Obesity. BMI 29 Post-Operative Diagnosis: Recurrent Acute cholecytitis. History of choledocholithiasis. Obesity. BMI 29 Indication for Surgery: 32 Female history of recurrent calculus cholecystitis admitted with acute upper abdominal pain and symptoms, with elevated enzymes and US evidence of gallstones. Pre-op MRCP negative for choledocholithiasis despite elevated liver enzymes and bilirubin. Details of HPI in clinical chart. Taken to the operating room for laparoscopic cholecystectomy. Patient understands the risks and benefits of the procedure as documented in the clinic chart but specifically risk of cystic duct leak and common bile duct injury, need for open surgery and has consented to the procedure. Operative Findings: Mild Inflammation in right upper quadrant with thin adhesions gallbladder to omentum; Inflamed, Fluid filled gallbladder with dilated cystic duct. Clips in place on cystic duct and cystic artery at end of case without evidence of bleeding or bile leak. Procedure/Operation Description: PROCEDURES PERFORMED: 1) Laparoscopic Cholecystectomy. . DESCRIPTION OF PROCEDURE: The patient was given a preoperative dose of Ancef 20 minutes before the incision. SCD boots were placed for DVT prophylaxis. The patient had an orogastric tube placed in order to empty the stomach after the induction of general anesthesia. Upper and lower body warmer placed to maintain normothermia. Secure straps placed above and bleow the knees. Arms placed on arm boards out at 80 degress. All bony prominences were padded. A timeout was performed prior to incision. The abdomen was prepped and draped in sterile fashion. All skin incisions were made using an 11 blade scalpel after being pre-anesthetized with local anesthesia. In the infraaumbilical midline, a circumlinear incision was made and the umbilical raphe was identified and the fascia was divided between clamps at its base entering the abdomen in an open fashion. A 11-mm trocar was inserted in the abdomen and the abdomen was insufflated to 15 mmHg pressure with CO2. A 30-degree viewing scope was then inserted and the abdomen was generally inspected and there was not found to be any additional signs of pathology. In the right upper quadrant, two 5-mm ports were placed after the under direct vision and in the subxiphoid midline, an 11-mm radially dilating port was placed in the similar fashion. . There was significant inflammation in the right upper abdomen and a large dilated gallbladder fundus was identified beneath the liver edge. A laparoscopic aspiration needle was inserted into the fundus and used to aspirate 30cc of bilious fluid for decompression and allow grasping and retraction. The fundus of the gallbladder was then retracted to the right upper quadrant and the neck of the gallbladder was visualized. There were omental adhesions to the gallbladder that were taken down with a cominbation of sharp dissection and hook cautery. The peritoneal attachments from the lateral portion of the gallbladder/cystic duct junction were gently dissected and divided to open up the [place]. The [place] was then dissected up onto the liver bed posterior to the gallbladder in order to ensure that this was the cystic duct and not tenting of the common bile duct. The peritoneal attachments on the medial portion of the gallbladder going up to the side of the liver were taken and distal third of galbbladder dissected off the cystic plate. The critical view was obtained. The cystic artery and duct were sequentially then doubly clipped and ligated and the clips were inspected. . Once this was completed, the gallbladder was dissected free from the liver bed using electrocautery and placed this in an endo catch bag. This was withdrawn through the umbilical port. The abdomen was reinspected. The clips were in good position on the cystic artery and duct stumps and the abdomen was generally irrigated and drained. The ports were then removed from the abdomen and the abdomen was desufflated with air. The umbilical port was closed with [id number] 0- Vicryl suture x2, skin incisions closed with 4-0 Vicryl sutures, and finally dermabond applied to skin. The patient tolerated the procedure well and was extubated and stable in recovery after the procedure. . I was present throughout the entirety of the procedure. Sponge, needle and instrument counts were correct. Estimated Blood Loss: 20mL Complications: none Specimen: gallbladder Discharge & Condition: above
== END 2018-01-23 15:25 | disposition home or self-care (01) | DRG 494 ==
LOC: H.ER 11:02 → H.ERHOLD 13:44 → H.PEDS 17:58
PROVIDERS: ADMIT Family Medicine Geriatric Medicine; ATTEND Family Medicine Geriatric Medicine
PROC: 0FT44ZZ Resection of Gallbladder, Percutaneous Endoscopic Approach (ICD-10-PCS; principal; 2018-01-20 14:30)
DX: K80.66 Calculus of gallbladder and bile duct with acute and chronic cholecystitis without obstruction (principal); K66.0 Peritoneal adhesions (postprocedural) (postinfection); K59.00 Constipation, unspecified; R74.0 Nonspecific elevation of levels of transaminase and lactic acid dehydrogenase [LDH]; E66.9 Obesity, unspecified; Z68.29 Body mass index [BMI] 29.0-29.9, adult; Z87.11 Personal history of peptic ulcer disease; Z86.19 Personal history of other infectious and parasitic diseases

== ENCOUNTER 2018-05-17 15:20 | Emergency (ER) | payer MEDICAID, OTHER ==
[2018-05-17 15:20] VITALS: BMI 29.6
[2018-05-17 15:36] VITALS: TEMP 98.3
[2018-05-17] MEDS ORDERED: Sodium Chloride 0.9% 1,000 ML IV STA (16:06)
[2018-05-17 16:28] LABS: BASO % 0.5 % (0.0-2.0); EOS # 0.1 K/uL (0.0-0.7); EOS % 1.1 % (0.0-4.0); HEMOGLOBIN 12.9 g/dL (12.0-16.0); LYMPH # 2.3 K/uL (1.0-4.3); LYMPH % 31.3 % (20.0-40.0); MEAN CELL VOLUME 82.7 fl (81.0-99.0); MEAN CORPUSCULAR HEMOGLOBIN 27.3 pg (27.0-31.0); MEAN PLATELET VOLUME 8.9 fl (7.2-11.7); MONO # 0.5 K/uL (0.0-0.8); MONO % 6.4 % (0.0-10.0); NEUT # 4.4 K/uL (1.8-7.0); NEUT % 60.7 % (50.0-75.0); RBC 4.73 Mil/uL (3.80-5.20); RED CELL DISTRIBUTION WIDTH 14.3 % (11.5-14.5); WHITE BLOOD COUNT 7.2 K/uL (4.8-10.8)
[2018-05-17 16:41] LABS: VENOUS BLOOD GAS BASE EXCESS 4.6 mmol/L (0.0-2.0); VENOUS BLOOD GAS PCO2 56 mmHg (40-60); VENOUS BLOOD GAS PO2 24 mm/Hg (30-55); VENOUS BLOOD PH 7.36 (7.32-7.43)
[2018-05-17 16:45] LABS: ALB/GLOB RATIO 1.2 (1.0-2.1); ALBUMIN 4.5 g/dL (3.5-5.0); ALT/SGPT 23 U/L (9-52); AST/SGOT 25 U/L (14-36); BLOOD UREA NITROGEN 14 mg/dl (7-17); CALCIUM 9.6 mg/dL (8.4-10.2); GFR NON-AFRICAN AMERICAN > 60
--- NOTE | 2018-05-17 18:15 | ED PDOC ---
HPI: Headache Time Seen by Provider: 05/17/18 15:55 Chief Complaint (Nursing): Dizziness/Lightheaded Chief Complaint (Provider): Headache, Dizziness, Nausea, Vomiting History Per: Patient History/Exam Limitations: no limitations Onset/Duration Of Symptoms: Days (several) Current Symptoms Are (Timing): Still Present Additional Complaint(s): 32 year old female presents to the ED for evaluation of dizziness, headache, nausea, and vomiting for the past several days. She has been able to tolerate some liquid PO, but notes decreased PO intake otherwise. Denies sick contacts and recent travel. PMD: none provided Past Medical History Reviewed: Historical Data, Nursing Documentation, Vital Signs Vital Signs: Last Vital Signs Temp 98.3 F 05/17/18 15:35 Pulse 80 05/17/18 15:35 Resp 16 05/17/18 15:35 BP 143/82 05/17/18 15:35 Pulse Ox 100 05/17/18 15:35 - Medical History PMH: Gastrointestinal Ulcer, Gall Bladder Disease, HTN (Gestational HTN) Denies: Depression, Diabetes, HIV, Chronic Kidney Disease - Surgical History Surgical History: Cholecystectomy, - Family History Family History: States: Diabetes, Hypertension - Social History Current smoker - smoking cessation education provided: No Alcohol: None Drugs: Denies - Immunization History Hx Influenza Vaccination: No Hx Pneumococcal Vaccination: No - Home Medications Home Medications: Ambulatory Orders Medication Instructions Recorded Acetaminophen [Tylenol 325mg tab] 650 mg PO Q4 PRN #30 tab 01/23/18 - Allergies Allergies/Adverse Reactions: Allergies Allergy/AdvReac Type Severity Reaction Status Date / Time No Known Allergies Allergy Verified 12/16/17 16:38 Review of Systems ROS Statement: Except As Marked, All Systems Reviewed And Found Negative Gastrointestinal: Positive for: Nausea, Vomiting Neurological: Positive for: Headache, Dizziness Physical Exam - Reviewed Nursing Documentation Reviewed: Yes Vital Signs Reviewed: Yes - Physical Exam Appears: Positive for: No Acute Distress Head Exam: Positive for: ATRAUMATIC, NORMOCEPHALIC Skin: Positive for: Normal Color Eye Exam: Positive for: Normal appearance Neck: Positive for: Normal, Painless ROM, Supple Cardiovascular/Chest: Positive for: Regular Rate, Rhythm Respiratory: Positive for: Normal Breath Sounds. Negative for: Respiratory Distress Gastrointestinal/Abdominal: Positive for: Normal Exam, Soft. Negative for: Tenderness Back: Positive for: Normal Inspection Extremity: Positive for: Normal ROM Neurologic/Psych: Positive for: Alert, Oriented (x3) - Laboratory Results Result Diagrams: 05/17/18 16:24 05/17/18 16:24 - ECG O2 Sat by Pulse Oximetry: 100 (RA) Pulse Ox Interpretation: Normal Medical Decision Making Medical Decision Making: Time: 1606 Initial Impression: workup for gastroenteritis v influenza Initial Plan: --VBG --EKG --CMP --CBC with differential --Normal saline IV --Zofran 4mg IVP --Influenza A B swab --Reassess Scribe Attestation: Documented by Rajani Isidro, acting as a scribe for Sparkle Colin MD. Provider Scribe Attestation: All medical record entries made by the Scribe were at my direction and personally dictated by me. I have reviewed the chart and agree that the record accurately reflects my personal performance of the history, physical exam, medical decision making, and the department course for this patient. I have also personally directed, reviewed, and agree with the discharge instructions and disposition. Disposition - Clinical Impression Clinical Impression: Vomiting, Dizziness - Disposition Condition: IMPROVED Additional Instructions: Increase water and rest while symptoms last. Take Tylenol or Motrin for fever. Follow up with primary medical doctor. Return to the emergency department if symptoms worsen or if new symptoms develop. Instructions: Nausea and Vomiting, Adult (DC), Dizziness, Nonvertigo, (DC) Forms: ProxToMe (Swiss), ProxToMe (Norwegian) Print Language: TAJIK
[2018-05-17 20:00] VITALS: BP 136/80; PULSE 86; RESP 18; O2SAT 98
--- NOTE | 2018-05-18 20:22 | CARD ---
APPROVED REPORT Date of service: 05/17/2018 EKG Measurement Heart [id number] <Conclusion> Normal sinus rhythm Normal ECG
== END 2018-05-17 19:33 | disposition home or self-care (01) ==
LOC: H.ER 15:20
DX: R11.10 Vomiting, unspecified (principal); R42 Dizziness and giddiness
CPT/HCPCS: 80053; 81025; 82803; 85025; 87804; 93005; 96361; 96374; 99285; J2405; J7030